=== PATIENT | male | born 1940 | race Hispanic/Latino ===

== ENCOUNTER 2021-08-22 08:18 | Observation (INO) | payer OTHER ==
[2021-08-22 08:37] LABS: Protime INR 0.97
[2021-08-22 08:38] LABS: Basophils % 0.6 % (0-1.3); Hematocrit 38.7 % (39.6-49.0); Lymphocytes % 20.1 % (15.3-44.8); MPV 8.7 fL (7.6-11.3); RBC Red Blood Cell Count 4.06 M/uL (4.33-5.43)
[2021-08-22 08:58] LABS: Albumin 3.3 g/dL (3.4-5.0); Bilirubin Direct 0.2 mg/dL (0-0.2); Bilirubin Total 0.5 mg/dL (0.2-1.0); Magnesium 2.1 mg/dL (1.8-2.4); Troponin (Emerg Dept Use Only) 0.02 ng/mL (0.0-0.045)
--- NOTE | 2021-08-22 09:31 | RAD REPORT ---
EXAM DESCRIPTION: RAD - Chest Single View - 08/22/2021 8:35 am CLINICAL HISTORY: CHEST PAIN COMPARISON: No comparisons FINDINGS: Lines: None. Lungs: No evidence of edema or pneumonia. Pleural: No significant pleural effusions or pneumothorax. Cardiac: The heart size is within normal limits. Bones: No acute fractures. Other: IMPRESSION: No acute cardiopulmonary disease.
--- NOTE | 2021-08-22 09:42 | EDPHYS ---
Physician Documentation [facility] Name: Kel Acuna Age: 80 yrs Sex: Male : 1940 Arrival Date: 08/22/2021 Time: 08:21 Bed 4 Private MD: ED Physician Rivka Elias HPI: 08/22 09:33 This 80 yrs old Male presents to ER via EMS with complaints of Chest Pain. ma2 09:40 The patient or guardian reports chest pain that is located primarily in the substernal ma2 area. Onset: gradually, 1 day(s) ago. Associated signs and symptoms: Pertinent negatives: cough, headache, lower extremity swelling, nausea. Severity of pain: At its worst the pain was moderate in the emergency department the pain is unchanged. The patient has experienced similar episodes in the past. Historical: - Allergies: 08:28 Aspirin; kd3 08:28 PENICILLINS; kd3 08:28 Tramadol HCl; kd3 08:28 SHELLFISH; kd3 - Home Meds: 08:28 metformin 500 mg Oral tab .5 tab 2 times per day [Active]; prednisolone acetate 0.12 % kd3 Opht drps 1 drop 2 times per day [Active]; tamsulosin 0.4 mg oral cap 1 cap once daily [Active]; atorvastatin 80 mg oral tab 1 tab once daily [Active]; citalopram 40 mg tab 1 tab once daily [Active]; clopidogrel 75 mg oral tab 1 tab once daily [Active]; famotidine 20 mg Oral tab 1 tab 2 times per day [Active]; - PMHx: 08:28 Diabetes mellitus; Hypercholesterolemia; Kidney disease; blind; kd3 - Immunization history:: Client reports receiving the Stone \\T\\ Stone single-dose vaccine. - Social history:: Smoking status: unknown Patient/guardian denies using alcohol, IV drugs, The patient lives with family. - Family history:: not pertinent. ROS: 09:40 Constitutional: Negative for fever, chills, and weight loss. ma2 09:40 All other systems are negative. Exam: 09:40 Constitutional: This is a well developed, well nourished patient who is awake, alert, ma2 and in no acute distress. Chest/axilla: Normal chest wall appearance and motion. Nontender with no deformity. No lesions are appreciated. Cardiovascular: Regular rate and rhythm with a normal S1 and S2. No gallops, murmurs, or rubs. Normal PMI, no JVD. No pulse deficits. Respiratory: Lungs have equal breath sounds bilaterally, clear to auscultation and percussion. No rales, rhonchi or wheezes noted. No increased work of breathing, no retractions or nasal flaring. Abdomen/GI: Soft, non-tender, with normal bowel sounds. No distension or tympany. No guarding or rebound. No evidence of tenderness throughout. Back: No spinal tenderness. No costovertebral tenderness. Full range of motion. Vital Signs: 08:22 BP 167 / 87; Pulse 68; Resp 12; Temp 97.4; Pulse Ox 100% on R/A; kd3 09:00 BP 137 / 84; Pulse 64; Resp 15; Pulse Ox 100% ; jl7 09:30 BP 137 / 51; Pulse 64; Resp 15; Pulse Ox 100% ; jl7 10:00 BP 148 / 76; Pulse 59; Resp 14; Pulse Ox 100% ; jl7 10:30 BP 146 / 78; Pulse 61; Resp 15; Pulse Ox 100% ; jl7 11:00 BP 147 / 72; Pulse 64; Resp 15; Pulse Ox 100% ; jl7 MDM: 08:21 Patient medically screened. ma2 09:40 Differential diagnosis: abnormal EKG, chest wall pain, gastroesophageal reflux disease ma2 (GERD), pneumonia, stable angina. HEART Score: History: Moderately Suspicious (1), ECG: Non specific repolarization disturbance / LBTB / PM (1), Age: > or = 65 years (2), Risk Factors: > or = 3 Risk factors for atherosclerotic disease (2), Troponin: < or = 1 x Normal Limit (0), Total Score = 5. The patient was given aspirin in the Emergency Department. Data reviewed: vital signs, nurses notes, EMS record. Data reviewed: lab test result(s), EKG. Counseling: I had a detailed discussion with the patient and/or guardian regarding: the historical points, exam findings, and any diagnostic results supporting the discharge/admit diagnosis, the presence of at least one elevated blood pressure reading (>120/80) during this emergency department visit, the need for further work-up and treatment in the hospital. 08/22 08:22 Order name: Basic Metabolic Panel [facility] 08/22 08:22 Order name: CBC with Diff; Complete Time: 09:25 [facility] 08/22 08:22 Order name: LFT's; Complete Time: 09:25 [facility] 08/22 08:22 Order name: Magnesium; Complete Time: 09:25 [facility] 08/22 08:22 Order name: NT PRO-BNP; Complete Time: 09:25 [facility] 08/22 08:22 Order name: PT-INR; Complete Time: 09:25 [facility] 08/22 08:22 Order name: Troponin (emerg Dept Use Only); Complete Time: 09:25 [facility] 08/22 08:22 Order name: XRAY Chest (1 view); Complete Time: 11: [facility] 08/22 08:22 Order name: EKG; Complete Time: 08:22 [facility] 08/22 08:22 Order name: Basic Metabolic Panel; Complete Time: 09:25 [facility] 08/22 10:14 Order name: SARS-COV-2 RT PCR (Document "Date of Onset" if Symptomatic) 08/22 10:15 Order name: SARS-COV-2 RT PCR [facility] 08/22 10:21 Order name: Social Service Consult [facility] 08/22 08:22 Order name: Cardiac monitoring; Complete Time: 08:25 [facility] 08/22 08:22 Order name: EKG - Nurse/Tech; Complete Time: 08:25 [facility] 08/22 08:22 Order name: IV Saline Lock; Complete Time: 08:25 [facility] 08/22 08:22 Order name: Labs collected and sent; Complete Time: 08:25 [facility] 08/22 08:22 Order name: O2 Per Protocol; Complete Time: 08:25 [facility] 08/22 08:22 Order name: O2 Sat Monitoring; Complete Time: 08:25 [facility] Administered Medications: 09:47 Not Given (allergyy): Aspirin Chewable Tablet 324 mg PO once; 81 mg tablets x 4 jd3 Disposition Summary: 08/22/21 09:41 Hospitalization Ordered Hospitalization Status: Observation nc2 Provider: Curtis Richards Location: Telemetry/MedSurg (observation) [facility] Condition: Stable [facility] Problem: new [facility] Symptoms: are unchanged [facility] Bed/Room Type: Standard [facility] Room Assignment: [facility](08/22/21 11:27) eb Diagnosis - Chest pain, unspecified ma2 Forms: - Medication Reconciliation Form ma2 - SBAR form ma2 Signatures: Dispatcher [employer] Rivka Cheatham MD MD ma2 Maria Eugenia Bolden Kyli kd3 Wei Genao RN jd3 Corrections: (The following items were deleted from the chart) 09:41 ma2 renata
--- NOTE | 2021-08-22 09:42 | ER ---
Nurse's Notes [facility] Name: Kel Acuna Age: 80 yrs Sex: Male : 1940 Arrival Date: 08/22/2021 Time: 08:21 Bed 4 Private MD: Diagnosis: Chest pain, unspecified Presentation: 08/22 08:22 Chief complaint: EMS states: toned out for non radiating left-sided chest pain. nitro kd3 x3 given at residential with minimal relief. Coronavirus screen: At this time, the client does not indicate any symptoms associated with coronavirus-19. Ebola Screen: Patient negative for fever greater than or equal to 101.5 degrees Fahrenheit, and additional compatible Ebola Virus Disease symptoms No symptoms or risks identified at this time. Initial Sepsis Screen: Does the patient meet any 2 criteria? No. Patient's initial sepsis screen is negative. Does the patient have a suspected source of infection? No. Patient's initial sepsis screen is negative. Risk Assessment: Do you want to hurt yourself or someone else? Patient reports no desire to harm self or others. Onset of symptoms was August 22, 2021 at 06:30. Care prior to arrival: IV initiated. 20 GA, in the left forearm. Transition of care: patient was received from another setting of care (long-term care facility), [facility]. 08:22 Method Of Arrival: EMS: [facility] kd3 08:22 Acuity: LEONID 2 kd3 Triage Assessment: 08:28 General: Appears in no apparent distress. uncomfortable, Behavior is calm, cooperative, kd3 appropriate for age. Pain: Complains of pain in anterior aspect of left upper chest Pain does not radiate. Pain currently is 4 out of 10 on a pain scale. at worst was 6 out of 10 on a pain scale. Pain began 2 hours ago. Is continuous. EENT: Eyes pt report blind in both eyes . Neuro: No deficits noted. Level of Consciousness is awake, alert, obeys commands, Oriented to person, place, time, situation. Cardiovascular: Patient's skin is warm and dry. Rhythm is sinus rhythm. Respiratory: Airway is patent Respiratory effort is even, unlabored, Respiratory pattern is regular, symmetrical. Derm: Skin is pink, warm \T\ dry. Historical: - Allergies: 08:28 Aspirin; kd3 08:28 PENICILLINS; kd3 08:28 Tramadol HCl; kd3 08:28 SHELLFISH; kd3 - Home Meds: 08:28 metformin 500 mg Oral tab .5 tab 2 times per day [Active]; prednisolone acetate 0.12 % kd3 Opht drps 1 drop 2 times per day [Active]; tamsulosin 0.4 mg oral cap 1 cap once daily [Active]; atorvastatin 80 mg oral tab 1 tab once daily [Active]; citalopram 40 mg tab 1 tab once daily [Active]; clopidogrel 75 mg oral tab 1 tab once daily [Active]; famotidine 20 mg Oral tab 1 tab 2 times per day [Active]; - PMHx: 08:28 Diabetes mellitus; Hypercholesterolemia; Kidney disease; blind; kd3 - Immunization history:: Client reports receiving the Stone \T\ Stone single-dose vaccine. - Social history:: Smoking status: unknown Patient/guardian denies using alcohol, IV drugs, The patient lives with family. - Family history:: not pertinent. Screenin:39 Abuse screen: Denies threats or abuse. Denies injuries from another. Nutritional kd3 screening: No deficits noted. Tuberculosis screening: No symptoms or risk factors identified. Fall Risk IV access (20 points). Ambulatory Aid- None/Bed Rest/Nurse Assist (0 pts). Mental Status- Oriented to own ability (0 pts). Total Balderas Fall Scale indicates No Risk (0-24 pts). Assessment: 08:39 General: see triage . kd3 09:30 Reassessment: Patient appears in no apparent distress at this time. Patient and/or jl7 family updated on plan of care and expected duration. Pain level reassessed. Patient is alert, oriented x 3, equal unlabored respirations, skin warm/dry/pink. Pt reports decreased pain rated 2/10 at this time Patient states feeling better. 10:30 Reassessment: Patient appears in no apparent distress at this time. No changes from jl7 previously documented assessment. Patient and/or family updated on plan of care and expected duration. Pain level reassessed. Patient is alert, oriented x 3, equal unlabored respirations, skin warm/dry/pink. Vital Signs: 08:22 BP 167 / 87; Pulse 68; Resp 12; Temp 97.4; Pulse Ox 100% on R/A; kd3 09:00 BP 137 / 84; Pulse 64; Resp 15; Pulse Ox 100% ; jl7 09:30 BP 137 / 51; Pulse 64; Resp 15; Pulse Ox 100% ; jl7 10:00 BP 148 / 76; Pulse 59; Resp 14; Pulse Ox 100% ; jl7 10:30 BP 146 / 78; Pulse 61; Resp 15; Pulse Ox 100% ; jl7 11:00 BP 147 / 72; Pulse 64; Resp 15; Pulse Ox 100% ; jl7 ED Course: 08:21 Patient arrived in ED. kd3 08:21 Rivka Elias MD is Attending Physician. ma2 08:28 Triage completed. kd3 08:28 Arm band placed on right wrist. kd3 08:36 XRAY Chest (1 view) In Process Unspecified. EDMS 08:39 Patient has correct armband on for positive identification. Placed in gown. Bed in low kd3 position. Call light in reach. Side rails up X2. transplant surgeon on. Pulse ox on. NIBP on. 08:39 EKG done, by ED staff, reviewed by Rivka Elias MD. Initial lab(s) drawn, by ED kd3 staff, sent to lab. Maintain EMS IV. Dressing intact. Good blood return noted. Site clean \T\ dry. Gauge \T\ site: 20 r forearm . Patient maintains SpO2 saturation greater than 95% on room air. 09:41 Curtis Richards DO is Hospitalizing Provider. ma2 09:48 Neva Blandon RN is Primary Nurse. 7 11:33 No provider procedures requiring assistance completed. Patient admitted, IV remains in jl7 place. intact, No redness/swelling at site. Administered Medications: 09:47 Not Given (allergyy): Aspirin Chewable Tablet 324 mg PO once; 81 mg tablets x 4 jd3 Outcome: 09:41 Decision to Hospitalize by Provider. ma2 11:34 Admitted to Tele accompanied by tech, room 215, with chart, Report called to adin Ballard RN 11:34 Condition: stable 11:34 Discharge instructions given to patient, Instructed on the need for admit, Demonstrated understanding of instructions. 11:48 Patient left the ED. [email or web address] Signatures: Dispatcher [employer] Neva Chavez RN RN jl7 Alzahri, Mohammad, MD MD ma2 Priscilla Britton kd3 Wei Genao RN jd3
--- NOTE | 2021-08-22 10:20 | P.HP ---
Certification for Inpatient Patient admitted to: Observation With expected LOS: <2 Midnights Patient will require the following post-hospital care: Other (Back to halfway) Practitioner: I am a practitioner with admitting privileges, knowledge of patient current condition, hospital course, and medical plan of care. Services: Services provided to patient in accordance with Admission requirements found in Title 42 Section 412.3 of the Code of Federal Regulations Patient History Date of Service: 08/22/21 Primary Care Provider: [facility] Reason for admission: Chest pain History of Present Illness: 80-year-old male with history of CAD, diabetes, hyperlipidemia, BPH, and depression. Patient presented to the emergency room with left-sided chest pain. Patient is new to the area. He has been at the halfway for over 10 days. He recently lived near [facility]. He reports having chest pain in the recent past. He was seen at [facility]. He reports having a stress test done at that time which was unremarkable. Today he reported chest pain to the left chest wall. He denied any radiation of pain. He denied any nausea, vomiting or shortness of breath. He took 3 nitro pills with improvement. He came to the ER for further evaluation. In the ER patient was evaluated. EKG shows no significant EKG changes. CBC unremarkable. BMP unremarkable. Troponin 0 0.02. Chest x-ray unremarkable. Due to his risk factors patient was admitted for observation. Home medications list reviewed: Yes - Past Medical/Surgical History Diabetic: Yes -: Diabetes mellitus type 2 -: Hypertension -: Hyperlipidemia -: BPH -: CAD with prior stents -: Seasonal allergies -: Prior cardiac stents x3 Psychosocial/ Personal History: Lives at halfway. Recently moved to halfway. Was in [facility] prior to this. - Family History Family History: Reviewed- Non-Contributory - Social History Smoking Status: Never smoker Alcohol use: No CD- Drugs: No Caffeine use: No Place of Residence: [facility] Review of Systems General: As per HPI Eyes: Unremarkable ENT: Unremarkable Respiratory: Shortness of Breath Cardiovascular: Unremarkable Gastrointestinal: Unremarkable Genitourinary: Unremarkable Musculoskeletal: Unremarkable Integumentary: Unremarkable Neurological: Unremarkable Lymphatics: Unremarkable Physical Examination - Studies Laboratory Data (last 24 hrs) 08/22/21 08:22: PT 11.2, INR 0.97 08/22/21 08:22: WBC 5.20, Hgb 12.7 L, Hct 38.7 L, Plt Count 167 08/22/21 08:22: Sodium 143, Potassium 4.0, BUN 14, Creatinine 1.00, Glucose 87, Magnesium 2.1, Total Bilirubin 0.5, AST 55 H, ALT 63, Alkaline Phosphatase 120 H Assessment and Plan - Plan COVID: Pending Chest x-ray: COMPARISON: No comparisons FINDINGS: Lines: None. Lungs: No evidence of edema or pneumonia. Pleural: No significant pleural effusions or pneumothorax. Cardiac: The heart size is within normal limits. Bones: No acute fractures. IMPRESSION: No acute cardiopulmonary disease. Physical Exam: GENERAL: The patient is a well-developed, well-nourished, in no apparent distress. Alert and oriented x3. VITAL SIGNS: Reviewed HEENT: Head is normocephalic and atraumatic. Extraocular muscles are intact. Pupils are equal, round, and reactive to light and accommodation. Nares appeared normal. Mouth is well hydrated and without lesions. Mucous membranes are moist. NECK: Supple. No carotid bruits. No lymphadenopathy or thyromegaly. LUNGS: Clear to auscultation. No crackles or wheezes are heard. HEART: Regular rate and rhythm, no appreciable gallops, rubs, murmurs or extra heart sounds ABDOMEN: Soft, nontender, and nondistended. Positive bowel sounds. No hepatosplenomegaly was noted. EXTREMITIES: Without any cyanosis, clubbing, rash, lesions or peripheral edema. NEUROLOGIC: The patient is oriented to person, place and time. Strength and sensation are grossly intact. Face is symmetric. SKIN: Normal color, turgor and temperature. No ulcerations or rashes noted. Impression: Chest pain with history of CAD and 3 prior stents Hypertension Hyperlipidemia Diabetes mellitus type 2 [id number] BPH Depression GERD Plan: Chest pain with history of CAD and 3 prior stents: Patient will be admitted for further evaluation and observation. No significant EKG changes noted on EKG. Will monitor cardiac enzymes and telemetry. Will obtain echocardiogram. We will try to obtain recent cardiac stress test done in [facility] which was unremarkable. Continue aspirin, Plavix, Lipitor medication. Will monitor blood pressure closely. Cardiology consulted. Await recommendation. If work-up unremarkable anticipate likely discharge within 24 hours. Hypertension: Blood pressure stable at this time. We will monitor this closely. Patient not taking any medication at this time but will verify from [facility] record. Will start low-dose carvedilol with parameters in place. Hyperlipidemia: We will check fasting lipid panel. Continue Lipitor 80 mg daily. Diabetes mellitus type 2 [id number]: Hold Metformin. Continue Accu- Cheks and sliding scale. Will check A1c. BPH: Continue Flomax 0.4 mg daily. Depression: Continue Celexa 40 mg daily. GERD: Continue Pepcid 20 mg 1 pill twice daily. Code Status: Full Code DVT prophylaxis: Lovenox Advanced Care Planning-30 minutes: Patient will return back to the halfway at discharge Discharge Plan: [facility] Plan to discharge in: 24 Hours - Advance Directives Does patient have a Living Will: No Does patient have a Durable POA for Healthcare: No - Code Status/Comfort Care Code Status Assessed: Yes (Patient is full code) Time Spent Managing Pts Care (In Minutes): 55
[2021-08-22] MEDS ORDERED: ONDANSETRON 4 MG/2 ML VIAL IV PRN (11:55)
[2021-08-22] MEDS ORDERED: HYDROCODONE/APAP 7.5/325 MG TAB PO PRN (11:55)
[2021-08-22] MEDS ORDERED: TRAMADOL HCL 50 MG TAB PO PRN (11:55)
[2021-08-22] MEDS ORDERED: ACETAMINOPHEN 500 MG TAB PO PRN (11:55)
[2021-08-22] MEDS: INSULIN -REGULAR HUMAN 50 UNIT/0.5 ML ML SQ SCH ×3 (11:55→21:00)
[2021-08-22] MEDS ORDERED: NITROGLYCERIN 0.4 MG/TAB SL PRN (11:55)
[2021-08-22] MEDS ORDERED: LORAZEPAM 0.5 MG TABLET PO PRN (11:55)
[2021-08-22 12:51] VITALS: BMI 25.0
[2021-08-22 13:01] LABS: CKMB Creatine Kinase MB 2.8 ng/mL (1.0-3.6); Troponin I 0.02 ng/mL (0.0-0.045)
--- NOTE | 2021-08-22 15:05 | ECHO ---
HEIGHT: 5 ft 2 in WEIGHT: 137 lb 0 oz DATE OF STUDY: 08/22/[address]: Curtis Richards DO 2-DIMENSIONAL: YES M.MODE: YES DOPPLER: YES COLOR FLOW: YES TDS: NO PORTABLE: NO DEFINITY: NO BUBBLE STUDY: NO DIAGNOSIS: CHEST PAIN/ HYPERTENSION CARDIAC HISTORY: CATHERIZATION: SURGERY: PROSTHETIC VALVE: PACEMAKER: MEASUREMENTS (cm) DIASTOLIC (NORMALS) SYSTOLIC (NORMALS) IVSd 1.2 (0.6-1.2) LA Diam 3.0 (1.9-4.0) LVEF 77% LVIDd 3.5 (3.5-5.7) LVIDs 1.9 (2.0-3.5) %FS 44% LVPWd 1.1 (0.6-1.2) Ao Diam 3.3 (2.0-3.7) 2 DIMENSIONAL ASSESSMENT: RIGHT ATRIUM: NORMAL LEFT ATRIUM: NORMAL RIGHT VENTRICLE: NORMAL LEFT VENTRICLE: NORMAL TRICUSPID VALVE: NORMAL MITRAL VALVE: MILD TO MODERATE MITRAL REGURGITATION PULMONIC VALVE: NORMAL AORTIC VALVE: NORMAL PERICARDIAL EFFUSION: NONE AORTIC ROOT: NORMAL LEFT VENTRICULAR WALL MOTION: NORMAL. DOPPLER/COLOR FLOW: SEE BELOW. COMMENTS: NORMAL LEFT VENTRICULAR EJECTION FRACTION 60-65%. NORMAL WALL MOTION. MILD MITRAL REGURGITATION. TECHNOLOGIST: TON TITUS
[2021-08-22] MEDS ORDERED: carvediloL 3.125 MG TAB PO SCH (18:00)
[2021-08-22 18:25] LABS: CKMB Creatine Kinase MB 2.6 ng/mL (1.0-3.6)
[2021-08-22] MEDS ORDERED: ATORVASTATIN 80 MG TAB PO SCH (21:00)
[2021-08-22] MEDS ORDERED: TAMSULOSIN 0.4 MG SR CAP PO SCH (21:00)
[2021-08-22] MEDS: FAMOTIDINE 20 MG TAB PO SCH (21:31)
--- NOTE | 2021-08-22 22:01 | CON ---
Date of Consultation: 08/22/2021 Reason For Consultation: Chest pain. History Of Present Illness: A 80-year-old male with a history of diabetes; coronary artery disease, status post stents placement in the past; dyslipidemia; depression; presented with chest pain, left-s ided. The patient has been having this pain since yesterday and it is coming and going pressure-like and no radiation. No nausea, vomiting, or diaphoresis. Past Medical History: As outlined above in the HPI. Medications: Refer to reconciliation sheet for detailed list. Allergies: ASPIRIN, PENICILLIN, AND TRAMADOL. Social History: Does not smoke or drink. Does not use any drugs. Family History: No premature coronary artery disease or cancer. Review of Systems: All systems reviewed and they were negative except as mentioned in the HPI. Physical Examination: Vital Signs: Reviewed. Head and Neck: Pupils are equal, reactive to light. Intact eye movements. No JVD. No cyanosis. Ne ck is supple. Thyroid is not enlarged. Lungs: Clear to auscultation bilaterally. No rhonchi, rales, or crackles. No accessory muscle use. Heart: Regular rate and rhythm. No extra sounds. Abdomen: Soft and nontender. Bowel sounds positive. No organomegaly. No masses or hernia. No rig idity or rebound. Extremities: No edema, clubbing, or cyanosis. Intact pulses. Skin: No rashes. Neurologic: Alert, awake, and oriented x3. No acute focal deficits appreciated. Investigations: Labs were reviewed. Assessment And Recommendations: Chest pain in the setting of presence of coronary artery disease wit h multiple stents in the past. First troponin is negative. Please trend troponins. Start on aspiri n. Obtain echocardiogram and recommend to keep n.p.o. past midnight for coronary angiogram tomorrow. The patient more likely is having unstable angina versus acute coronary syndrome. Please trend 2 m ore sets of troponin and to start him on anticoagulation if there is any troponin rise. Thank you for the consult. /VARINDER Voice ID: [id number] Report ID: [id number]
[2021-08-23 00:39] VITALS: TEMP 97.9
[2021-08-23 05:45] LABS: Magnesium 2.3 mg/dL (1.8-2.4); Potassium 4.5 mmol/L (3.5-5.1); Thyroid Stimulating Hormone 2.52 uIU/mL (0.360-3.740)
--- NOTE | 2021-08-23 06:01 | P.PN ---
Subjective Date of Service: 08/23/21 Primary Care Provider: [facility] / [facility] Chief Complaint: Chest pain Subjective: Improving, Doing well Physical Examination - Vital Signs Temperature: 97.9 F Blood Pressure: 108/58 Pulse: 70 Respirations: 18 Pulse Ox (%): 97 - Studies Laboratory Data (last 24 hrs) 08/22/21 08:22: PT 11.2, INR 0.97 08/22/21 08:22: WBC 5.20, Hgb 12.7 L, Hct 38.7 L, Plt Count 167 08/22/21 08:22: Sodium 143, Potassium 4.0, BUN 14, Creatinine 1.00, Glucose 87, Magnesium 2.1, Total Bilirubin 0.5, AST 55 H, ALT 63, Alkaline Phosphatase 120 H Assessment & Plan Discharge Plan: Home Plan to discharge in: 24 Hours Physician Review Additional Text: COVID: Pending Chest x-ray: COMPARISON: No comparisons FINDINGS: Lines: None. Lungs: No evidence of edema or pneumonia. Pleural: No significant pleural effusions or pneumothorax. Cardiac: The heart size is within normal limits. Bones: No acute fractures. IMPRESSION: No acute cardiopulmonary disease. ECHO: MEASUREMENTS (cm) DIASTOLIC (NORMALS) SYSTOLIC (NORMALS) IVSd 1.2 (0.6-1.2) LA Diam 3.0 (1.9-4.0) LVEF 77% LVIDd 3.5 (3.5-5.7) LVIDs 1.9 (2.0-3.5) %FS 44% LVPWd 1.1 (0.6-1.2) Ao Diam 3.3 (2.0-3.7) 2 DIMENSIONAL ASSESSMENT: RIGHT ATRIUM: NORMAL LEFT ATRIUM: NORMAL RIGHT VENTRICLE: NORMAL LEFT VENTRICLE: NORMAL TRICUSPID VALVE: NORMAL MITRAL VALVE: MILD TO MODERATE MITRAL REGURGITATION PULMONIC VALVE: NORMAL AORTIC VALVE: NORMAL PERICARDIAL EFFUSION: NONE AORTIC ROOT: NORMAL LEFT VENTRICULAR WALL MOTION: NORMAL. DOPPLER/COLOR FLOW: SEE BELOW. COMMENTS: NORMAL LEFT VENTRICULAR EJECTION FRACTION 60-65%. NORMAL WALL MOTION. MILD MITRAL REGURGITATION. Physical Exam: GENERAL: The patient is a well-developed, well-nourished, in no apparent distress. Alert and oriented x3. VITAL SIGNS: Reviewed HEENT: Neck supple LUNGS: Clear to auscultation. No crackles or wheezes are heard. HEART: Regular rate and rhythm, no appreciable gallops, rubs, murmurs or extra heart sounds ABDOMEN: Soft, nontender, and nondistended. Positive bowel sounds. No hepatosplenomegaly was noted. EXTREMITIES: Without any cyanosis, clubbing, rash, lesions or peripheral edema. NEUROLOGIC: The patient is oriented to person, place and time. Strength and sensation are grossly intact. Face is symmetric. SKIN: Normal color, turgor and temperature. No ulcerations or rashes noted. Impression: Chest pain with history of CAD and 3 prior stents Hypertension Hyperlipidemia Diabetes mellitus type 2 [id number]-jowpxhrwn BPH Depression GERD Plan: Chest pain with history of CAD and 3 prior stents: Cardiac enzymes are negative. Cardiology plans for heart cath today. ECHO unremarkable with EF of 60%. Will monitor cardiac enzymes and telemetry. Continue aspirin, Plavix, Lipitor medication. Await findings of heart cath. Possible discharge as early as today if heart cath unremarkable. Await findings from heart catheterization. Hypertension: Blood pressure stable on carvedilol 3.125 mg 1 pill twice daily. Parameters in place to hold Hyperlipidemia: LDL 59. Continue Lipitor 80 mg daily. Diabetes mellitus type 2 ite-njszwmk-[id number]: Continue to hold Metformin. Continue Accu-Cheks and sliding scale. Will check A1c. BPH: Continue Flomax 0.4 mg daily. Depression: Continue Celexa 40 mg daily. GERD: Continue Pepcid 20 mg 1 pill twice daily. Code Status: Full Code DVT prophylaxis: Lovenox Advanced Care Planning-30 minutes: Patient will return back to the senior living at discharge Time Spent Managing Pts Care (In Minutes): 55
[2021-08-23] MEDS: INSULIN -REGULAR HUMAN 50 UNIT/0.5 ML ML SQ SCH ×2 (07:30→11:30)
[2021-08-23] MEDS: FAMOTIDINE 20 MG TAB PO SCH (08:54)
[2021-08-23] MEDS ORDERED: ASPIRIN EC 81 MG TAB PO SCH (09:00)
[2021-08-23] MEDS ORDERED: LORATADINE 10 MG TAB PO SCH (09:00)
[2021-08-23] MEDS ORDERED: ENOXAPARIN 40 MG/0.4 ML SQ SCH (09:00)
[2021-08-23] MEDS ORDERED: CITALOPRAM 10 MG TABLET PO SCH (09:00)
[2021-08-23] MEDS ORDERED: CLOPIDOGREL 75 MG TABLET PO SCH (09:00)
[2021-08-23] MEDS ORDERED: FLUTICASONE 50MCG NASAL SPRAY NAS SCH (09:00)
[2021-08-23] MEDS ORDERED: NA CHLORIDE 0.9% 500 ML ONE (10:03)
[2021-08-23] MEDS ORDERED: HEPA 1000U/500MLS 1,000 UNIT/500 ML BAG IV ONE (10:28)
[2021-08-23] MEDS ORDERED: LIDOCAINE 1% 20 ML MDV ONE (10:28)
[2021-08-23] MEDS ORDERED: FENTANYL CITR 100 MCG/2 ML ONE (10:34)
[2021-08-23] MEDS ORDERED: MIDAZOLAM HCL 2 MG/2 ML INJ ONE (10:34)
[2021-08-23] MEDS ORDERED: ATROPINE SULF 1 MG/10 ML SYR IV ONE (10:34)
[2021-08-23] MEDS ORDERED: NA CHLORIDE 0.9% 0 ML ONE (10:38)
[2021-08-23] MEDS ORDERED: METHYLPREDNISOLONE 125 MG INJ ONE (10:45)
[2021-08-23 11:50] VITALS: BP 108/60; O2SAT 94
--- NOTE | 2021-08-23 13:24 | P.DS ---
Admission Date: 08/22/21 Discharge Date: 08/23/21 Primary Care Provider: [facility] Disposition: TRANSFER TO SKILLED NURSING Discharge Condition: GOOD Reason for Admission: Chest pain Consultations: Cardiology-Dr. Rizzo Procedures: COVID: Negative Chest x-ray: COMPARISON: No comparisons FINDINGS: Lines: None. Lungs: No evidence of edema or pneumonia. Pleural: No significant pleural effusions or pneumothorax. Cardiac: The heart size is within normal limits. Bones: No acute fractures. IMPRESSION: No acute cardiopulmonary disease. ECHO: MEASUREMENTS (cm) DIASTOLIC (NORMALS) SYSTOLIC (NORMALS) IVSd 1.2 (0.6-1.2) LA Diam 3.0 (1.9-4.0) LVEF 60% LVIDd 3.5 (3.5-5.7) LVIDs 1.9 (2.0-3.5) %FS 44% LVPWd 1.1 (0.6-1.2) Ao Diam 3.3 (2.0-3.7) 2 DIMENSIONAL ASSESSMENT: RIGHT ATRIUM: NORMAL LEFT ATRIUM: NORMAL RIGHT VENTRICLE: NORMAL LEFT VENTRICLE: NORMAL TRICUSPID VALVE: NORMAL MITRAL VALVE: MILD TO MODERATE MITRAL REGURGITATION PULMONIC VALVE: NORMAL AORTIC VALVE: NORMAL PERICARDIAL EFFUSION: NONE AORTIC ROOT: NORMAL LEFT VENTRICULAR WALL MOTION: NORMAL. DOPPLER/COLOR FLOW: SEE BELOW. COMMENTS: NORMAL LEFT VENTRICULAR EJECTION FRACTION 60-65%. NORMAL WALL MOTION. MILD MITRAL REGURGITATION. Heart Cath: Stents noted. Some coronary artery disease noted. No stent required at this time. Continue with medical management with the addition of Imdur. Medical Problem List: Chest pain with history of CAD and 3 prior stents status post heart catheterization showing patent stents in coronary artery disease. No stent required. Hyperlipidemia Diabetes mellitus type 2 zxx-kvqlibw-pckckvgzf BPH Depression GERD Brief History of Present Illness: 80-year-old male with history of CAD, diabetes, hyperlipidemia, BPH, and depression. Patient presented to the emergency room with left-sided chest pain. Patient is new to the area. He has been at the detention for over 10 days. He recently lived near [place]. He reports having chest pain in the recent past. He was seen at [facility]. He reports having a stress test done at that time which was unremarkable. Today he reported chest pain to the left chest wall. He denied any radiation of pain. He denied any nausea, vomiting or shortness of breath. He took 3 nitro pills with improvement. He came to the ER for further evaluation. In the ER patient was evaluated. EKG shows no significant EKG changes. CBC unremarkable. BMP unremarkable. Troponin 0 0.02. Chest x-ray unremarkable. Due to his risk factors patient was admitted for observation. Hospital Course: Patient presented with chest pain. Patient with history of CAD and 3 prior stents. Patient also with history of hyperlipidemia, diabetes mellitus type 2, depression, BPH and GERD. Patient was admitted for treatment. Patient was observed. No significant EKG changes noted. Cardiac enzymes unremarkable. Patient was seen and evaluated by cardiology. Echocardiogram was unremarkable with ejection fraction around 60%. Cardiology recommended heart catheterization to further evaluate. Heart catheterization showed patent stents. Coronary artery disease noted. No stent was required. Cardiology recommends adding Imdur to his medical regimen. At discharge patient will continue with Imdur ER 30 mg daily, Plavix 75 mg daily, and Lipitor 80 mg daily. Recommend follow-up with cardiology in 1 to 2 weeks to follow-up his hospitalization. Patient will return back to the detention today. Patient with hyperlipidemia. LDL 59. At discharge patient will continue with Lipitor 80 mg daily. Patient with diabetes mellitus type 2. Metformin was held in preparation for heart catheterization. Metformin can be restarted in 48 hours. Patient will continue with metformin 500 mg 1 pill twice daily. Hemoglobin A1c well controlled with A1c of 6.0. Recommend to maintain blood sugar less than 140 fasting and less than 200 after meals. Recommend to recheck hemoglobin A1c every 3 months to monitor his progress. Recommend follow-up with PCP to further monitor and address. Patient with BPH. At discharge patient will continue with Flomax 0.4 mg daily. Patient with depression. At discharge patient will continue with Celexa 40 mg daily. Patient with GERD. Patient will continue with Pepcid 20 mg 1 pill twice daily. Patient with chronic seasonal allergies. At discharge patient will continue with Claritin 10 mg daily and Flonase 1 spray per nostril twice daily. Patient with mild elevation in blood pressure. Blood pressure remained stable during the course of his stay. No need for blood pressure medication at discharge. Recommend to monitor blood pressure closely. If blood pressure remains above 140/90 consistently then his PCP may need to add medication for better control. Consider beta-sathish. This can be further addressed at the detention. Vital Signs/Physical Exam: Temp Pulse Resp BP Pulse Ox 97.9 F 60 13 108/60 97 08/23/21 09:48 08/23/21 11:45 08/23/21 11:45 08/23/21 11:45 08/23/21 08:30 General: Alert, In no apparent distress, Oriented x3, Cooperative HEENT: Atraumatic Neck: Supple Respiratory: Clear to auscultation bilaterally, Normal air movement Cardiovascular: Normal pulses, Regular rate/rhythm Gastrointestinal: Normal bowel sounds, No tenderness, No masses, No rebound, No guarding Musculoskeletal: No erythema, No tenderness, No warmth Integumentary: No tenderness/swelling, No erythema, No warmth, No cyanosis Neurological: Normal speech, Normal strength at 5/5 x4 extr, Normal tone, Normal affect Laboratory Data at Discharge: WBC 5.20 K/uL (4.3-10.9) 08/22/21 08:22 Hgb 12.7 g/dL (13.6-17.9) L 08/22/21 08:22 Hct 38.7 % (39.6-49.0) L 08/22/21 08:22 Plt Count 167 K/uL (152-406) 08/22/21 08:22 PT 11.2 SECONDS (9.5-12.5) 08/22/21 08:22 INR 0.97 08/22/21 08:22 Sodium 140 mmol/L (136-145) 08/23/21 04:51 Potassium 4.5 mmol/L (3.5-5.1) 08/23/21 04:51 BUN 21 mg/dL (7-18) H 08/23/21 04:51 Creatinine 1.23 mg/dL (0.55-1.3) 08/23/21 04:51 Glucose 101 mg/dL (74-106) 08/23/21 04:51 Magnesium 2.3 mg/dL (1.8-2.4) 08/23/21 04:51 Total Bilirubin 0.5 mg/dL (0.2-1.0) 08/22/21 08:22 AST 55 U/L (15-37) H 08/22/21 08:22 ALT 63 U/L (12-78) 08/22/21 08:22 Alkaline Phosphatase 120 U/L (45-117) H 08/22/21 08:22 Troponin I < 0.02 ng/mL (0.0-0.045) 08/23/21 06:55 Triglycerides 89 mg/dL (<150) 08/23/21 04:51 Cholesterol 110 mg/dL (<200) 08/23/21 04:51 HDL Cholesterol 33 mg/dL (40-60) L 08/23/21 04:51 Cholesterol/HDL Ratio 3.33 08/23/21 04:51 Home Medications: Atorvastatin Calcium [Lipitor] 80 mg PO DAILY 6PM 08/22/21 Citalopram Hydrobromide [Celexa] 40 mg PO DAILY 08/22/21 Clopidogrel Bisulfate [Plavix*] 75 mg PO DAILY 08/22/21 Famotidine [Pepcid*] 20 mg PO BID 08/22/21 Fluticasone Furoate [Flonase Sensimist] 2 spray PETERSON DAILY 08/22/21 Loratadine [Claritin*] 10 mg PO DAILY 08/22/21 Metformin HCl [Glucophage*] 500 mg PO BID 08/22/21 Nitroglycerin [Nitrostat*] 0.4 mg SL Q5MX3, Q15MX1, Q30M PRN 08/22/21 Prednisolone Acetate/Pf [Prednisolone Acet 1% Eye Drop] 1 drop EACH EYE BID 09/01 Tamsulosin HCl [Flomax] 0.4 mg PO DAILY 08/22/21 Isosorbide Mononitrate [Isosorbide Mononitrate ER] 30 mg PO DAILY #30 tab.er.24h 08/23/21 New Medications: Isosorbide Mononitrate [Isosorbide Mononitrate ER] 30 mg PO DAILY #30 tab.er.24h Physician Discharge Instructions: Patient presented with chest pain. Patient with history of CAD and 3 prior stents. Patient also with history of hyperlipidemia, diabetes mellitus type 2, depression, BPH and GERD. Patient was admitted for treatment. Patient was observed. No significant EKG changes noted. Cardiac enzymes unremarkable. Patient was seen and evaluated by cardiology. Echocardiogram was unremarkable with ejection fraction around 60%. Cardiology recommended heart catheterization to further evaluate. Heart catheterization showed patent stents. Coronary artery disease noted. No stent was required. Cardiology recommends adding Imdur to his medical regimen. At discharge patient will continue with Imdur ER 30 mg daily, Plavix 75 mg daily, and Lipitor 80 mg daily. Recommend follow-up with cardiology in 1 to 2 weeks to follow-up his hospitalization. Patient will return back to the detention today. Patient with hyperlipidemia. LDL 59. At discharge patient will continue with Lipitor 80 mg daily. Patient with diabetes mellitus type 2. Metformin was held in preparation for heart catheterization. Metformin can be restarted in 48 hours. Patient will continue with metformin 500 mg 1 pill twice daily. Hemoglobin A1c well controlled with A1c of 6.0. Recommend to maintain blood sugar less than 140 fasting and less than 200 after meals. Recommend to recheck hemoglobin A1c every 3 months to monitor his progress. Recommend follow-up with PCP to further monitor and address. Patient with BPH. At discharge patient will continue with Flomax 0.4 mg daily. Patient with depression. At discharge patient will continue with Celexa 40 mg daily. Patient with GERD. Patient will continue with Pepcid 20 mg 1 pill twice daily. Patient with chronic seasonal allergies. At discharge patient will continue with Claritin 10 mg daily and Flonase 1 spray per nostril twice daily. Patient with mild elevation in blood pressure. Blood pressure remained stable during the course of his stay. No need for blood pressure medication at discharge. Recommend to monitor blood pressure closely. If blood pressure remains above 140/90 consistently then his PCP may need to add medication for better control. Consider beta-sathish. This can be further addressed at the detention. Diet: AHA Activity: Ad deepti Followup: Evangelista Drake MD [Primary Care Provider] - Time spent managing pt's care (in minutes): 55
--- NOTE | 2021-08-23 15:36 | OP ---
Surgeon: Oscar Rizzo MD Stove Fitter: Mr. Gregg Black. Procedure In Detail: Admitted to Dr. Richards on 08/22/[address] Streeter for non-STEMI, brou ght to the civil laboratory technician today as an inpatient, prepped and draped in the routine sterile fashion. Given Versed for sedation and fentanyl. He was also given 125 mg of Solu-Medrol for allergy to iodine. Th e patient was prepped and draped in the routine sterile fashion. A 6-Persian sheath introduced in the right common femoral artery successfully using the Seldinger technique and 10 mL of Xylocaine. A JL 4 catheter was first introduced and cannulated the left main. He had a short left main. He had a ci rcumflex that was normal. He was left dominant. The LAD showed a 30% to 40% stenosis in the proxima l area and distal area. Between the mid and distal LAD, there were a few stents that were overlapped and that were open. Of note was that there was a slow sluggish flow REJI-1 in the distal LAD, PDA a nd posterolateral. There were no complications. Blood Loss: 5 mL. Postoperative Diagnosis: Savhdhyu-ra-bdiwcq coronary artery disease. Plan: Plan is for medical therapy. I would increase his statin. I think he should be on Imdur. He can go home today after 2 hours of bedrest. Anesthesia: Total conscious sedation 45 minutes. He will be at bedrest for 2 hours after the Angio-Seal. JAY/VARINDER Voice ID: [id number] Report ID: [id number]
--- NOTE | 2021-08-23 20:40 | EKG ---
Test Date: 2021-08-22 Test Time: 08:17:48 Quality Assurance Assistant: MEASUREMENT RESULTS: Intervals: Rate: 71 WA: 146 QRSD: 62 QT: 410 QTc: 445 [place]: P: 52 WA: 146 QRS: 12 T: 8 INTERPRETIVE STATEMENTS: Normal sinus rhythm Minimal voltage criteria for LVH, may be normal variant Nonspecific T wave abnormality Abnormal ECG No previous ECG available for comparison Electronically Signed On 08-23-21 20:35:25 MILLED [employer]ICE BR[employer]ER by Oscar Rizzo
== END 2021-08-23 15:26 ==
LOC: ER 08:18 → ERHOLD 10:07 → 2ND 11:31
PROVIDERS: ADMIT Family Medicine; ATTEND Family Medicine
PROC: B201YZZ Plain Radiography of Multiple Coronary Arteries using Other Contrast (ICD-10-PCS; principal; 2021-08-23)
DX: I25.10 Atherosclerotic heart disease of native coronary artery without angina pectoris (principal); E11.9 Type 2 diabetes mellitus without complications; E78.5 Hyperlipidemia, unspecified; N40.0 Benign prostatic hyperplasia without lower urinary tract symptoms; F32.A Depression, unspecified; I10 Essential (primary) hypertension; Z95.5 Presence of coronary angioplasty implant and graft; K21.9 Gastro-esophageal reflux disease without esophagitis; J30.2 Other seasonal allergic rhinitis; Z20.822 Contact with and (suspected) exposure to COVID-19
CPT/HCPCS: 93005; 93306; 85025; 80048 ×2; 36415; 83735 ×2; 82550 ×2; 85610; 80061; 82947 ×5; 80076; 84443; 83036; 84484 ×3; 82553 ×2; 84439; 83880; 71045; 93454; 99285; U0003; C1893; C1760; J2250; J3010; J7040; J1644; J2930; G0378 ×3; J0583

== ENCOUNTER 2022-04-17 09:54 | Observation (INO) | payer OTHER ==
[2022-04-17 10:18] LABS: Absolute Lymphocytes (CBC) 0.8 K/uL (0.7-4.9); Lymphocytes % 17.5 % (15.3-44.8); MCV 86.3 fL (80-100); MPV 8.4 fL (7.6-11.3); RBC Red Blood Cell Count 4.17 M/uL (4.33-5.43)
[2022-04-17 10:38] LABS: Potassium 3.8 mmol/L (3.5-5.1); Troponin High Sensitivity 19.5 pg/mL (<58.9)
--- NOTE | 2022-04-17 10:55 | RAD REPORT ---
EXAM DESCRIPTION: RAD - Chest Single View - 04/17/2022 10:36 am CLINICAL HISTORY: CHEST PAIN COMPARISON: Portable 08/22/2021 TECHNIQUE: AP portable chest image was obtained 04/17/2022 10:36 am . FINDINGS: No focal mass or consolidation. There is a mild prominence of the interstitial pattern not clearly different from comparison. A minimal interstitial edema or infiltrate could be masked. No si gnificant failure or volume overload. Heart and vasculature are normal. No measurable pleural effusion and no pneumothorax. No acute bony abnormality seen. No acute aortic findings suspected. IMPRESSION: Prominent baseline interstitial pattern is present potentially masking early edema or in filtrate. No focal mass or consolidation.
--- NOTE | 2022-04-17 12:07 | ER ---
Nurse's Notes [facility] Name: Kel Acuna Age: 81 yrs Sex: Male : 1940 Arrival Date: 04/17/2022 Time: 09:56 Bed 13 Private MD: Diagnosis: Chest pain, unspecified Presentation: 04/17 09:56 Chief complaint: Patient states: he has been having intermittent chest pain for a few ap3 days now. patient states that it comes and goes on the left upper quadrant of his chest. Coronavirus screen: At this time, the client does not indicate any symptoms associated with coronavirus-19. Ebola Screen: No symptoms or risks identified at this time. Initial Sepsis Screen: Does the patient meet any 2 criteria? No. Patient's initial sepsis screen is negative. Does the patient have a suspected source of infection? No. Patient's initial sepsis screen is negative. Risk Assessment: Do you want to hurt yourself or someone else? Patient reports no desire to harm self or others. Onset of symptoms was April 13, 2022. 09:56 Method Of Arrival: EMS: [facility] ap3 09:56 Acuity: LEONID 3 ap3 09:56 Care prior to arrival: Medication(s) given: nitro IV initiated. 20 GA, in the left ap3 forearm. Triage Assessment: 09:58 General: Appears in no apparent distress. Behavior is calm, cooperative, appropriate ap3 for age. Pain: Complains of pain in anterior aspect of left upper chest Pain currently is 5 out of 10 on a pain scale. Pain began 2-3 days ago. 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 Neuro: Level of Consciousness is awake, alert, obeys commands, Oriented to person, place, time, situation, Appropriate for age. Cardiovascular: Patient's skin is warm and dry. Cardiovascular: Reports chest pain, Rhythm is regular. Respiratory: Airway is patent Respiratory effort is even, unlabored, Respiratory pattern is regular, symmetrical. Historical: - Allergies: 09:58 Aspirin; ap3 09:58 PENICILLINS; ap3 09:58 SHELLFISH; ap3 09:58 Tramadol HCl; ap3 - PMHx: 09:58 BLIND; diabetes mellitus; Hypercholesterolemia; kidney disease; stroke; ap3 - PSHx: 09:58 stents; ap3 - Immunization history:: Client reports receiving the 2nd dose of the Covid vaccine, and booster. - Social history:: Smoking status: Patient denies any tobacco usage or history of. Screenin:59 Abuse screen: Denies threats or abuse. Nutritional screening: No deficits noted. ap3 Tuberculosis screening: No symptoms or risk factors identified. Fall Risk Fall in past 12 months (25 points). Secondary diagnosis (15 points) pt is blind. Assessment: 11:45 Reassessment: Patient and/or family updated on plan of care and expected duration. Pain ap3 level reassessed. Patient is alert, oriented x 3, equal unlabored respirations, skin warm/dry/pink. 15:44 Reassessment: Patient appears in no apparent distress at this time. Patient and/or ld1 family updated on plan of care and expected duration. Pain level reassessed. Patient is alert, oriented x 3, equal unlabored respirations, skin warm/dry/pink. Patient denies pain at this time. Vital Signs: 09:56 BP 140 / 70; Pulse 72; Resp 17; Temp 97.8; Pulse Ox 98% ; Weight 61.69 kg; Height 5 ft. ap3 2 in. (157.48 cm); Pain 5/10; 11:45 BP 110 / 63; Pulse 82; Pulse Ox 100% on R/A; ap3 13:20 BP 127 / 108; Pulse 65; Resp 18; Pulse Ox 100% on R/A; ld1 15:43 BP 133 / 59; Pulse 67; Resp 18; Pulse Ox 99% on R/A; ld1 09:56 Body Mass Index 24.87 (61.69 kg, 157.48 cm) ap3 ED Course: 09:56 Patient arrived in ED. ap3 09:58 Triage completed. ap3 09:59 Aníbal Bhagat DO is Attending Physician. ms3 10:00 Meg Chatterjee, STEFAN is Primary Nurse. ap3 10:00 Arm band placed on right wrist. ap3 10:00 Patient has correct armband on for positive identification. Placed in gown. Bed in low ap3 position. Call light in reach. Side rails up X2. data control assistant on. Pulse ox on. NIBP on. Door closed. Noise minimized. 10:10 Maintain EMS IV. Dressing intact. Good blood return noted. Site clean \T\ dry. Gauge \T\ ap 3 site: 20g left FA. IV with fluids infusing freely, with good blood return, Flushed. 10:38 XRAY Chest (1 view) In Process Unspecified. EDMS 12:06 Jesus Alberto Dinh MD is Hospitalizing Provider. ms3 15:44 No provider procedures requiring assistance completed. ld1 Administered Medications: No medications were administered Outcome: 12:06 Decision to Hospitalize by Provider. ms3 16:09 Patient left the ED. ld1 Signatures: Dispatcher [employer] EDMS Meg Chatterjee, RN RN ap3 Aníbal Bhagat DO DO ms3 Philomena Mulligan, RN RN ld1
--- NOTE | 2022-04-17 12:07 | EDPHYS ---
Physician Documentation [facility] Name: Kel Acuna Age: 81 yrs Sex: Male : 1940 Arrival Date: 04/17/2022 Time: 09:56 Bed 13 Private MD: ED Physician Aníbal Bhagat HPI: 04/17 10:07 This 81 yrs old Male presents to ER via EMS with complaints of chest pain. ms3 10:07 The patient or guardian reports chest pain that is located primarily in the substernal ms3 area. Onset: this morning. The pain does not radiate. Associated signs and symptoms: Pertinent negatives: abdominal pain, nausea. The chest pain is described as tight. Duration: The patient or guardian reports a single episode, improved after 2 SL nitro. Modifying factors: The symptoms are alleviated by nothing. the symptoms are aggravated by nothing. Severity of pain: At its worst the pain was moderate in the emergency department the pain has improved. EMS care prior to arrival includes: nitroglycerin, x 1, Patient took 1 prior to EMS arrival. Historical: - Allergies: 09:58 Aspirin; ap3 09:58 PENICILLINS; ap3 09:58 SHELLFISH; ap3 09:58 Tramadol HCl; ap3 - PMHx: 09:58 BLIND; diabetes mellitus; Hypercholesterolemia; kidney disease; stroke; ap3 - PSHx: 09:58 stents; ap3 - Immunization history:: Client reports receiving the 2nd dose of the Covid vaccine, and booster. - Social history:: Smoking status: Patient denies any tobacco usage or history of. ROS: 10:07 Constitutional: Negative for fever, and chills. Eyes: Negative for injury, pain, ms3 redness, and discharge, Neck: Negative for injury, pain, and swelling, Respiratory: Negative for shortness of breath, cough, wheezing, and pleuritic chest pain, MS/Extremity: Negative for injury and deformity, Skin: Negative for injury, rash, and discoloration. 10:07 Cardiovascular: Positive for chest pain, of the chest. 10:07 All other systems are negative. Exam: 09:53 ECG was reviewed by the Attending Physician. ms3 10:07 Constitutional: This is a well developed, well nourished patient who is awake, alert, ms3 and in no acute distress. Head/Face: Normocephalic, atraumatic. Neck: Trachea midline, no cervical lymphadenopathy. Supple, full range of motion without nuchal rigidity, or vertebral point tenderness. No Meningismus. Chest/axilla: Normal chest wall appearance and motion. Nontender with no deformity. Cardiovascular: Regular rate and rhythm with a normal S1 and S2. No gallops, murmurs, or rubs. Normal PMI, no JVD. No pulse deficits. Respiratory: Lungs have equal breath sounds bilaterally, clear to auscultation and percussion. No rales, rhonchi or wheezes noted. No increased work of breathing, no retractions or nasal flaring. Abdomen/GI: Soft, non-tender, with normal bowel sounds. No distension or tympany. No guarding or rebound. No evidence of tenderness throughout. Skin: Warm, dry with normal turgor. Normal color with no rashes, no lesions, and no evidence of cellulitis. Psych: Awake, alert, with orientation to person, place and time. Behavior, mood, and affect are within normal limits. Vital Signs: 09:56 BP 140 / 70; Pulse 72; Resp 17; Temp 97.8; Pulse Ox 98% ; Weight 61.69 kg; Height 5 ft. ap3 2 in. (157.48 cm); Pain 5/10; 11:45 BP 110 / 63; Pulse 82; Pulse Ox 100% on R/A; ap3 13:20 BP 127 / 108; Pulse 65; Resp 18; Pulse Ox 100% on R/A; ld1 15:43 BP 133 / 59; Pulse 67; Resp 18; Pulse Ox 99% on R/A; ld1 09:56 Body Mass Index 24.87 (61.69 kg, 157.48 cm) ap3 MDM: 09:53 The patient was not given aspirin in the Emergency Department. Aspirin not given, ms3 patient refused. 10:07 Patient medically screened. ms3 10:07 Differential diagnosis: abnormal EKG, acute myocardial infarction, stable angina, ms3 unstable angina. 12:06 HEART Score: History: Slightly Suspicious (0), ECG: Normal (0), Age: > or = 65 years ms3 (2), Risk Factors: > or = 3 Risk factors for atherosclerotic disease (2), [Hypercholesterolemia] [Hypertension] [DM] Troponin: < or = 1 x Normal Limit (0), Total Score = 4. Data reviewed: vital signs, nurses notes, lab test result(s), EKG, radiologic studies, and as a result, I will admit patient. Counseling: I had a detailed discussion with the patient and/or guardian regarding: the historical points, exam findings, and any diagnostic results supporting the discharge/admit diagnosis, lab results, radiology results, the need for outpatient follow up. 12:06 ED course: Discussed case with Dr Dinh and he accepts admission. . ms3 04/17 10:00 Order name: Basic Metabolic Panel; Complete Time: 10:40 de3 04/17 10:00 Order name: CBC with Diff; Complete Time: 10:40 de3 04/17 10:00 Order name: Troponin HS; Complete Time: 10:40 de3 04/17 10:00 Order name: XRAY Chest (1 view); Complete Time: 11:29 de3 04/17 12:07 Order name: SARS-COV-2 RT PCR (Document "Date of Onset" if Symptomatic) de3 04/17 12:23 Order name: D-Dimer [facility] 04/17 10:00 Order name: EKG; Complete Time: 10:00 de3 04/17 10:00 Order name: Cardiac monitoring; Complete Time: 10:00 de3 04/17 10:00 Order name: EKG - Nurse/Tech; Complete Time: 10:00 de3 04/17 10:00 Order name: IV Saline Lock; Complete Time: 10:00 de3 04/17 10:00 Order name: Labs collected and sent; Complete Time: 10:00 de3 04/17 10:00 Order name: O2 Per Protocol; Complete Time: 10:00 de3 04/17 10:00 Order name: O2 Sat Monitoring; Complete Time: 10:00 3 EC:53 Rate is 68 beats/min. Rhythm is regular. QRS Lamar is Normal. IA interval is normal. QRS ms3 interval is normal. Clinical impression: Normal ECG. Interpreted by me. Reviewed by me. Administered Medications: No medications were administered Disposition Summary: 04/17/22 12:06 Hospitalization Ordered Hospitalization Status: Observation ms3 Provider: Jesus Alberto Dinh ms3 Location: Telemetry/[facility]Sur (observation) ms3 Condition: Stable ms3 Problem: new ms3 Symptoms: are unchanged ms3 Bed/Room Type: Standard ms3 Room Assignment: 215(04/17/22 15:13) ss Diagnosis - Chest pain, unspecified ms3 Forms: - Medication Reconciliation Form ms3 - SBAR form ms3 Signatures: Dispatcher [employer] Apoorva Schaeffer RN RN ss Meg Chatterjee RN RN ap3 Aníbal Bhagat, DO ms3 Corrections: (The following items were deleted from the chart) 15:13 12:06 ms3 ss 17: 09:53 HEART Score: History: Slightly Suspicious (0), ECG: Normal (0), Age: > or = 65 ms3 years (2), Risk Factors: > or = 3 Risk factors for atherosclerotic disease (2), [Hypercholesterolemia] [Hypertension] [DM] Troponin: < or = 1 x Normal Limit (0), Total Score = 4 ms3 17: 09:53 Data reviewed: vital signs, nurses notes, lab test result(s), EKG, radiologic ms3 studies, and as a result, I will admit patient, ms3 09:53 Counseling: I had a detailed discussion with the patient and/or guardian ms3 regarding: the historical points, exam findings, and any diagnostic results supporting the discharge/admit diagnosis, lab results, radiology results, the need for outpatient follow up, ms3
--- NOTE | 2022-04-17 12:20 | P.HP ---
Date of Service: 04/17/22
--- NOTE | 2022-04-17 12:28 | P.HP ---
Certification for Inpatient Patient admitted to: Observation With expected LOS: <2 Midnights Patient will require the following post-hospital care: None Practitioner: I am a practitioner with admitting privileges, knowledge of patient current condition, hospital course, and medical plan of care. Services: Services provided to patient in accordance with Admission requirements found in Title 42 Section 412.3 of the Code of Federal Regulations Patient History Date of Service: 04/17/22 Reason for admission: Chest Pain History of Present Illness: Mr. Kel Acuna is a pleasant 81-year-old legally blind male who has a past medical history of coronary artery disease s/p PCI x3 (last stent placed about 8 years ago), type 2 diabetes mellitus, hypertension, hyperlipidemia, benign prostatic hyperplasia, and depressive disorder who presents to the [facility] Emergency Department for chest pain. He reports that, over the last 2 days, he has been experiencing intermittent leftsided chest pain. He states that this pain is nonradiating. He describes the pain as heaviness and grades it a 23 out of 10 in severity. He denies any obvious inciting or alleviating factors. He has not tried take any medications for symptoms. On review of systems, he denies any fevers, chills, headaches, dizziness, syncope, weakness, palpitations, shortness of breath, wheezing, cough, abdominal pain, nausea/vomiting, diarrhea, constipation, hematochezia, melena, dysuria, hematuria, myalgia, or any other symptoms. He presented to the Emergency Department for further evaluation. Upon presentation, his vital signs were stable. His laboratory studies were fairly unremarkable. EKG revealed normal sinus rhythm without STEMI criteria. Chest x-ray revealed, "prominent baseline interstitial pattern is present potentially masking early edema or infiltrate." He was admitted to the General Internal Medicine service for further evaluation. Allergies aspirin Adverse Reaction (Verified 08/22/21 12:11) Shortness of breath Penicillins Adverse Reaction (Verified 08/22/21 12:11) Nausea/Vomiting shellfish derived Adverse Reaction (Verified 08/22/21 12:11) Hives/Rash tramadol Adverse Reaction (Verified 08/22/21 12:11) Shortness of breath Home medications list reviewed: Yes Home Medications: Atorvastatin Calcium [Lipitor] 80 mg PO DAILY 6PM 08/22/21 Citalopram Hydrobromide [Celexa] 40 mg PO DAILY 08/22/21 Clopidogrel Bisulfate [Plavix*] 75 mg PO DAILY 08/22/21 Famotidine [Pepcid*] 20 mg PO BID 08/22/21 Fluticasone Furoate [Flonase Sensimist] 2 spray PETERSON DAILY 08/22/21 Loratadine [Claritin*] 10 mg PO DAILY 08/22/21 Metformin HCl [Glucophage*] 500 mg PO BID 08/22/21 Nitroglycerin [Nitrostat*] 0.4 mg SL Q5MX3, Q15MX1, Q30M PRN 08/22/21 Prednisolone Acetate/Pf [Prednisolone Acet 1% Eye Drop] 1 drop EACH EYE BID 08/22/21 Tamsulosin HCl [Flomax] 0.4 mg PO DAILY 08/22/21 Isosorbide Mononitrate [Isosorbide Mononitrate ER] 30 mg PO DAILY #30 tab.er.24h 08/23/21 - Past Medical/Surgical History Diabetic: Yes -: Diabetes mellitus type 2 -: Hypertension -: Hyperlipidemia -: BPH -: CAD -: Seasonal allergies -: MELANIE -: blind -: Prior cardiac stents x3 Psychosocial/ Personal History: [facility]. [facility] [place] [facility]. Was in [facility] prior to this. - Social History Alcohol use: No CD- Drugs: No Caffeine use: No Review of Systems General: Unremarkable Eyes: Other (legally blind), Unremarkable ENT: Unremarkable Respiratory: Unremarkable Cardiovascular: Chest Pain Gastrointestinal: Unremarkable Genitourinary: Unremarkable Musculoskeletal: Unremarkable Integumentary: Unremarkable Neurological: Unremarkable Physical Examination - Vital Signs Temperature: 97.8 F Blood Pressure: 140/70 Pulse: 72 Respirations: 17 Pulse Ox (%): 98 - Physical Exam General: Alert, In no apparent distress, Oriented x3 HEENT: Atraumatic, Mucous membr. moist/pink Neck: Supple, Without JVD or thyroid abnormality Respiratory: Clear to auscultation bilaterally, Normal air movement Cardiovascular: No edema, Regular rate/rhythm, Normal S1 S2, No gallops, No rubs, No murmurs Gastrointestinal: Normal bowel sounds, Soft and benign, No tenderness, No rebound, No guarding Musculoskeletal: No clubbing Integumentary: No rashes Neurological: Normal speech, Normal affect - Studies Laboratory Data (last 24 hrs) 04/17/22 10:07: WBC 4.5, Hgb 11.6 L, Hct 36.0 L, Plt Count 172 04/17/22 10:07: Sodium 138, Potassium 3.8, BUN 16, Creatinine 0.95, Glucose 99 Assessment and Plan - Plan # Chest Pain, with history of Coronary Artery Disease s/p PCI x3 (last stent placed about 8 years ago) # Hypertension # Hyperlipidemia Based on history and physical examination, cannot exclude ischemia as a possible etiology of his chest pain. Other differential diagnoses include, but are not limited to, pulmonary embolism, pericarditis, myocarditis, gastroesophageal reflux disease, gastritis/esophagitis, esophageal spasms, pleuritic chest pain, and musculoskeletal chest pain (i.e. costochondritis). - Evaluation thus far: - EKG: without STEMI criteria - Serial HS troponin, first was 19.5 - Ordered transthoracic echocardiogram - Chest x-ray = "prominent baseline interstitial pattern is present potentially masking early edema or infiltrate. No focal mass or consolidation." - Ordered d-dimer - Management plan: - Consult Cardiology and spoke with Dr. Rizzo recommendations appreciated - Aspirin not given due to allergy - Continue home atorvastatin, clopidogrel - Consider starting beta-sathish and MILAGROS-inhibitor/ARB if blood pressure allows # Type 2 Diabetes Mellitus - Ordered Hgb A1c - Correction scale insulin ordered - Hold home metformin while hospitalized # Benign Prostatic Hyperplasia - Continue home tamsulosin # Gastroesophageal Reflux Disease - Continue home famotidine # Depressive Disorder - Continue home citalopram Jesus Alberto Dinh MD Discharge Plan: Home Plan to discharge in: 24 Hours - Advance Directives Does patient have a Living Will: No Does patient have a Durable POA for Healthcare: No - Code Status/Comfort Care Code Status Assessed: Yes Code Status: Full Code
[2022-04-17] MEDS: INSULIN -REGULAR HUMAN 50 UNIT/0.5 ML ML SQ SCH ×3 (16:30→21:00)
[2022-04-17 17:05] VITALS: BMI 24.8
[2022-04-17 17:22] LABS: Protime INR 1.05
[2022-04-17 17:42] LABS: Troponin High Sensitivity 21.4 pg/mL (<58.9)
--- NOTE | 2022-04-17 18:21 | P.PN ---
Date of Service: 04/17/[address] Molina that Mr. Acuna is one of his clinic patients. Since he was already admitted to our service today, he will remain under our care for now. Tomorrow, he will be on Dr. Molina's service. Jesus Alberto Dinh MD
[2022-04-17] MEDS ORDERED: METFORMIN HCL 500 MG TAB PO SCH (18:30)
[2022-04-17 19:03] LABS: Urine Appearance Clear (Clear); Urine Bilirubin Negative (Negative); Urine Blood Negative (Negative); Urine Color Yellow (Yellow); Urine Glucose Negative (Negative); Urine Protein Negative (Negative); Urine Urobilinogen 0.2 mg/dL (0.2-1.0)
[2022-04-17 19:10] LABS: Urine Microscopic Reflex ORDER UMIC
[2022-04-17 19:36] LABS: Urine Bacteria 20-50 /HPF (NONE SEEN)
[2022-04-17 19:37] LABS: Urine RBC NONE SEEN /HPF (NONE SEEN)
--- NOTE | 2022-04-17 20:43 | P.HP ---
Certification for Inpatient Patient admitted to: Inpatient With expected LOS: >2 Midnights Patient will require the following post-hospital care: None Practitioner: I am a practitioner with admitting privileges, knowledge of patient current condition, hospital course, and medical plan of care. Services: Services provided to patient in accordance with Admission requirements found in Title 42 Section 412.3 of the Code of Federal Regulations Patient History Date of Service: 04/17/22 Primary Care Provider: Jesse Reason for admission: Chest Pain History of Present Illness: Patient is an office patient of [facility]. With a history of blindness, dm2, cad. For the past 4 days he has been having left sided chest pain. He had some last night. woke up at 2 in the morning. he had the pain on the left side. Stated that his left arm felt heavy. This morning he called his daughter. Who called the office. The patient was directed to come to the ER. He has seen Dr. Rizzo in the past. However has not for the last couple of years. Allergies aspirin Adverse Reaction (Verified 08/22/21 12:11) Shortness of breath Penicillins Adverse Reaction (Verified 08/22/21 12:11) Nausea/Vomiting shellfish derived Adverse Reaction (Verified 08/22/21 12:11) Hives/Rash tramadol Adverse Reaction (Verified 08/22/21 12:11) Shortness of breath Home Medications: Atorvastatin Calcium [Lipitor] 80 mg PO DAILY 6PM 08/22/21 Citalopram Hydrobromide [Celexa] 40 mg PO DAILY 08/22/21 Clopidogrel Bisulfate [Plavix*] 75 mg PO DAILY 08/22/21 Famotidine [Pepcid*] 20 mg PO BID 08/22/21 Fluticasone Furoate [Flonase Sensimist] 2 spray PETERSON DAILY 08/22/21 Loratadine [Claritin*] 10 mg PO DAILY 08/22/21 Metformin HCl [Glucophage*] 500 mg PO BID 08/22/21 Nitroglycerin [Nitrostat*] 0.4 mg SL Q5MX3, Q15MX1, Q30M PRN 08/22/21 Prednisolone Acetate/Pf [Prednisolone Acet 1% Eye Drop] 1 drop EACH EYE BID 08/22/21 Tamsulosin HCl [Flomax] 0.4 mg PO DAILY 08/22/21 Isosorbide Mononitrate [Isosorbide Mononitrate ER] 30 mg PO DAILY #30 tab.er.24h 08/23/21 - Past Medical/Surgical History Diabetic: Yes -: Diabetes mellitus type 2 -: Hypertension -: Hyperlipidemia -: BPH -: CAD -: Seasonal allergies -: MELANIE -: blind -: a -: Prior cardiac stents x3 Psychosocial/ Personal History: Lives [facility]. Recently moved [facility]. Was in [facility] prior to this. - Social History Smoking Status: Never smoker Alcohol use: No CD- Drugs: No Caffeine use: No Place of Residence: Home Review of Systems 10-point ROS is otherwise unremarkable Cardiovascular: Chest Pain Physical Examination - Vital Signs Temperature: 98.4 F Blood Pressure: 169/87 Pulse: 93 Respirations: 18 Pulse Ox (%): 94 - Physical Exam General: Alert, In no apparent distress HEENT: Atraumatic, PERRLA, Mucous membr. moist/pink, EOMI, Sclerae nonicteric Neck: Supple, 2+ carotid pulse no bruit, No LAD, Without JVD or thyroid abnormality Respiratory: Clear to auscultation bilaterally, Normal air movement Cardiovascular: Regular rate/rhythm, Normal S1 S2 Gastrointestinal: Normal bowel sounds, No tenderness Musculoskeletal: No tenderness Integumentary: No rashes Neurological: Normal gait, Normal speech, Normal strength at 5/5 x4 extr, Normal tone, Normal affect Lymphatics: No axilla or inguinal lymphadenopathy - Studies Laboratory Data (last 24 hrs) 04/17/22 10:07: WBC 4.5, Hgb 11.6 L, Hct 36.0 L, Plt Count 172 04/17/22 10:07: Sodium 138, Potassium 3.8, BUN 16, Creatinine 0.95, Glucose 99 Assessment and Plan - Problems (Diagnosis) (1) Chest pain due to CAD Current Visit: Yes Status: Acute Plan: will admit to the floor. Monitor serial troponins. Consult to Dr. Rizzo. (2) DM2 (diabetes mellitus, type 2) Current Visit: Yes Status: Acute Plan: will hold his usually metformin. May need contrast during an angiogram. Will start him on an ada diet. As well as sliding scale insulin Qualifiers: Diabetes mellitus skilled nursing insulin use: without intermediate teacher use Diabetes mellitus complication status: with ophthalmic complications Diabetes mellitus complication detail: with diabetic retinopathy Laterality: bilateral (3) HTN (hypertension) Current Visit: Yes Status: Acute Plan: Will restart his home medications. Adjust as necessary. Qualifiers: Hypertension type: primary hypertension Qualified Code(s): I10 - Essential (primary) hypertension (4) Hyperlipidemia Current Visit: Yes Status: Acute - Advance Directives Does patient have a Living Will: No Does patient have a Durable POA for Healthcare: Yes - Code Status/Comfort Care Code Status Assessed: Yes Code Status: Full Code Physician Review: Patient Assessed, Agree with Above Assessment and Plan Critical Care: No Time Spent Managing Pts Care (In Minutes): 70
[2022-04-17] MEDS ORDERED: HYDRALAZINE HCL 20 MG/ML VIAL IV PRN (20:45)
[2022-04-17] MEDS ORDERED: D50W 25 GM/50 ML SYRINGE IV PRN (20:45)
[2022-04-17] MEDS ORDERED: GLUCAGON 1 MG/VIAL IM PRN (20:45)
[2022-04-17] MEDS: PREDNISOLONE ACETATE OPTH SCH (21:00)
[2022-04-17] MEDS ORDERED: D10W 125 ML IV PRN (21:01)
[2022-04-17] MEDS: ATORVASTATIN 20 MG TAB PO SCH (22:03)
[2022-04-17] MEDS: ACETAMINOPHEN 500 MG TAB PO PRN (22:03)
[2022-04-17] MEDS: lisinopriL 5 MG TAB PO SCH (22:04)
[2022-04-17] MEDS: FAMOTIDINE 20 MG TAB PO SCH (22:09)
[2022-04-18] MEDS: ACETAMINOPHEN 500 MG TAB PO PRN ×3 (05:53→21:20)
[2022-04-18] MEDS: carvediloL 3.125 MG TAB PO SCH ×2 (05:54→17:32)
[2022-04-18 06:01] LABS: Absolute Lymphocytes (CBC) 0.8 K/uL (0.7-4.9); Hematocrit 35.7 % (39.6-49.0); Lymphocytes % 17.1 % (15.3-44.8); MCV 86.3 fL (80-100); MPV 8.4 fL (7.6-11.3); RBC Red Blood Cell Count 4.14 M/uL (4.33-5.43)
[2022-04-18 06:21] LABS: Albumin 3.3 g/dL (3.4-5.0); Bilirubin Total 0.4 mg/dL (0.2-1.0); Magnesium 2.1 mg/dL (1.8-2.4); Phosphorus 3.5 mg/dL (2.5-4.9); Potassium 4.3 mmol/L (3.5-5.1); Protein, Total 6.7 g/dL (6.4-8.2); Troponin High Sensitivity 19.7 pg/mL (<58.9)
[2022-04-18] MEDS: INSULIN -REGULAR HUMAN 50 UNIT/0.5 ML ML SQ SCH ×8 (07:30→21:00)
--- NOTE | 2022-04-18 08:19 | P.PN ---
Subjective Date of Service: 04/18/22 Primary Care Provider: Jesse Chief Complaint: Chest Pain Subjective: No new changes Review of Systems 10-point ROS is otherwise unremarkable Physical Examination - Vital Signs Temperature: 98.1 F Blood Pressure: 131/63 Pulse: 64 Respirations: 15 Pulse Ox (%): 97 - Physical Exam General: Alert, In no apparent distress HEENT: Atraumatic, PERRLA, EOMI Neck: Supple, JVD not distended Respiratory: Clear to auscultation bilaterally, Normal air movement Cardiovascular: Regular rate/rhythm, Normal S1 S2 Gastrointestinal: Normal bowel sounds, No tenderness Musculoskeletal: No tenderness Integumentary: No rashes Neurological: Normal speech, Normal tone, Normal affect Lymphatics: No axilla or inguinal lymphadenopathy - Studies Laboratory Data (last 24 hrs) 04/17/22 10:07: WBC 4.5, Hgb 11.6 L, Hct 36.0 L, Plt Count 172 04/17/22 10:07: Sodium 138, Potassium 3.8, BUN 16, Creatinine 0.95, Glucose 99 Assessment And Plan - Current Problems (Diagnosis) (1) Chest pain due to CAD Current Visit: Yes Status: Acute Plan: will admit to the floor. Monitor serial troponins. Consult to Dr. Rizzo. 04/18 No chest pain this morning. He has no elevated troponins. Will await Dr. Streeter /So. We were sending to them to establish as an outpatient. So it is expedient them seeing him here in house (2) DM2 (diabetes mellitus, type 2) Current Visit: Yes Status: Acute Plan: will hold his usually metformin. May need contrast during an angiogram. Will start him on an ada diet. As well as sliding scale insulin Qualifiers: Diabetes mellitus chcf insulin use: without plant protection guard use Diabetes mellitus complication status: with ophthalmic complications Diabetes mellitus complication detail: with diabetic retinopathy Laterality: bilateral (3) HTN (hypertension) Current Visit: Yes Status: Acute Plan: Will restart his home medications. Adjust as necessary. Qualifiers: Hypertension type: primary hypertension Qualified Code(s): I10 - Essential (primary) hypertension (4) Hyperlipidemia Current Visit: Yes Status: Acute Discharge Plan: Home Plan to discharge in: 24 Hours - Code Status/Comfort Care Code Status Assessed: No Physician Review: Patient Assessed, Agree with Above Assessment and Plan Critical Care: No Time Spent Managing PTS Care (In Minutes): 20
[2022-04-18] MEDS: FLUTICASONE FUROATE NAS SCH (09:00)
[2022-04-18] MEDS: PREDNISOLONE ACETATE OPTH SCH ×2 (09:00→21:00)
[2022-04-18] MEDS: TAMSULOSIN 0.4 MG SR CAP PO SCH (10:04)
[2022-04-18] MEDS: CITALOPRAM 10 MG TABLET PO SCH (10:04)
[2022-04-18] MEDS: FAMOTIDINE 20 MG TAB PO SCH (10:05)
[2022-04-18] MEDS: ENOXAPARIN 40 MG/0.4 ML SQ SCH (10:05)
[2022-04-18] MEDS: CLOPIDOGREL 75 MG TABLET PO SCH (10:05)
--- NOTE | 2022-04-18 20:34 | CON ---
Date of Consultation: 04/18/2022 Reason For Consultation: Chest pain. History Of Present Illness: This is a 81-year-old male with a past medical history of diabetes, hype rtension, dyslipidemia, coronary artery disease, obstructive sleep apnea, and cardiac stents in the p ast who presented to the emergency room with chest pain, retrosternal, close to the left side, does n ot radiate any further along with heaviness and mild shortness of breath. Denies having any cough, n ausea, vomiting, diarrhea. . No diaphoresis. Past Medical History: As outlined above in the HPI. Medications: Refer reconciliation sheet for detailed list. Allergies: ASPIRIN, PENICILLIN, AND TRAMADOL. Family History: No premature coronary artery disease or cancer. Past Surgical History: Cardiac stents x3. Social History: He does not smoke or drink. Does not use any drugs. Review of Systems: All systems reviewed and they were negative except as mentioned in HPI. Physical Examination: Vital Signs: Reviewed. Head and Neck: Pupils are equal and reactive to light. Intact eye movements. No JVD. No cervical lymphadenopathy. Neck is supple. Thyroid is not enlarged. Lungs: Decreased breathing sounds bilaterally. No accessory muscle use or muscle retraction. Heart: Regular rate and rhythm. No extra sounds. Abdomen: Soft, nontender. Bowel sounds positive. No organomegaly. No masses or hernia. No rigidi ty or rebound. Extremities: No clubbing, cyanosis. Intact pulses. Skin: No rashes. Neurologic: Alert, awake, oriented x3. No acute focal deficits appreciated. Investigations: Creatinine 0.93. Troponins x3 are negative. Hemoglobin is 11.9. Assessment And Recommendations: 1.Chest pain with negative highly sensitive troponin x3. Pain is atypical, however, he has multiple risk factors. From Cardiology standpoint, this patient can be released today, and we will arrange f or him for a stress test and an echo as outpatient. Recommend on a baby aspirin and Coreg and also Plavix and sublingual nitroglycerin on as needed basis while the workup is pending to lucius gambino. 2.Hypertension. Blood pressure is acceptable. 3.Diabetes. Continue current home medications. Check sugars 3 times a day. Cover with insulin if needed. SR/MODL Voice ID: [id number] Report ID: [id number]
[2022-04-18] MEDS: ATORVASTATIN 20 MG TAB PO SCH (21:13)
[2022-04-18] MEDS: lisinopriL 5 MG TAB PO SCH (21:13)
[2022-04-19 05:03] VITALS: O2SAT 98
[2022-04-19] MEDS: ACETAMINOPHEN 500 MG TAB PO PRN (05:04)
[2022-04-19] MEDS: carvediloL 3.125 MG TAB PO SCH (05:05)
[2022-04-19] MEDS: INSULIN -REGULAR HUMAN 50 UNIT/0.5 ML ML SQ SCH ×4 (07:30→11:30)
[2022-04-19 08:47] VITALS: BP 127/62; TEMP 97.7
[2022-04-19] MEDS: PREDNISOLONE ACETATE OPTH SCH (09:00)
[2022-04-19] MEDS: CLOPIDOGREL 75 MG TABLET PO SCH (09:00)
[2022-04-19] MEDS: ENOXAPARIN 40 MG/0.4 ML SQ SCH (09:00)
[2022-04-19] MEDS: CITALOPRAM 10 MG TABLET PO SCH (09:00)
[2022-04-19] MEDS: FLUTICASONE FUROATE NAS SCH (09:00)
[2022-04-19] MEDS: FAMOTIDINE 20 MG TAB PO SCH (09:00)
[2022-04-19] MEDS: TAMSULOSIN 0.4 MG SR CAP PO SCH (09:00)
--- NOTE | 2022-04-19 12:30 | P.DS ---
Admission Date: 04/17/22 Discharge Date: 04/19/22 Primary Care Provider: Jesse Disposition: ROUTINE DISCHARGE Discharge Condition: GOOD Reason for Admission: Chest Pain - Problems (1) Chest pain due to CAD Current Visit: Yes Status: Acute (2) DM2 (diabetes mellitus, type 2) Current Visit: Yes Status: Acute Qualifiers: Diabetes mellitus middle or intermediate school principal insulin use: without nursing home use Diabetes mellitus complication status: with ophthalmic complications Diabetes mellitus complication detail: with diabetic retinopathy Laterality: bilateral (3) HTN (hypertension) Current Visit: Yes Status: Acute Qualifiers: Hypertension type: primary hypertension Qualified Code(s): I10 - Essential (primary) hypertension (4) Hyperlipidemia Current Visit: Yes Status: Acute Brief History of Present Illness: Patient is an office patient of [facility] [employer]. With a history of blindness, dm2, cad. For the past 4 days he has been having left sided chest pain. He had some last night. woke up at 2 in the morning. he had the pain on the left side. Stated that his left arm felt heavy. This morning he called his daughter. Who called the office. The patient was directed to come to the ER. He has seen Dr. Rizzo in the past. However has not for the last couple of years. Hospital Course: Patient was admitted for chest pain. He had negative troponins. Was seen in by Dr. Streeter who recommended a outpatient stress test. Will discharge the patient home on low dose carvediolol. Will give him bactrim for the uti. Follow up in a week with me in the office and Dr. Streeter in the next week or two to arrange for a stress test Vital Signs/Physical Exam: Temp Pulse Resp BP Pulse Ox 97.7 F 55 18 127/62 98 04/19/22 08:00 04/19/22 08:00 04/19/22 08:00 04/19/22 08:00 04/19/22 08:00 Laboratory Data at Discharge: WBC 4.8 K/uL (4.3-10.9) 04/18/22 05:26 Hgb 11.9 g/dL (13.6-17.9) L 04/18/22 05:26 Hct 35.7 % (39.6-49.0) L 04/18/22 05:26 Plt Count 160 K/uL (152-406) 04/18/22 05:26 PT 11.6 SECONDS (9.5-12.5) 04/17/22 17:08 INR 1.05 04/17/22 17:08 Sodium 138 mmol/L (136-145) 04/18/22 05:26 Potassium 4.3 mmol/L (3.5-5.1) 04/18/22 05:26 BUN 16 mg/dL (7-18) 04/18/22 05:26 Creatinine 0.93 mg/dL (0.55-1.3) 04/18/22 05:26 Glucose 88 mg/dL (74-106) 04/18/22 05:26 Phosphorus 3.5 mg/dL (2.5-4.9) 04/18/22 05:26 Magnesium 2.1 mg/dL (1.8-2.4) 04/18/22 05:26 Total Bilirubin 0.4 mg/dL (0.2-1.0) 04/18/22 05:26 AST 27 U/L (15-37) 04/18/22 05:26 ALT 22 U/L (12-78) 04/18/22 05:26 Alkaline Phosphatase 82 U/L (45-117) 04/18/22 05:26 Triglycerides 94 mg/dL (<150) 04/18/22 05:26 Cholesterol 111 mg/dL (<200) 04/18/22 05:26 HDL Cholesterol 32 mg/dL (40-60) L 04/18/22 05:26 Cholesterol/HDL Ratio 3.47 04/18/22 05:26 Home Medications: Atorvastatin Calcium [Lipitor] 80 mg PO DAILY 6PM 08/22/21 Citalopram Hydrobromide [Celexa] 40 mg PO DAILY 08/22/21 Famotidine [Pepcid*] 20 mg PO BID 08/22/21 Fluticasone Furoate [Flonase Sensimist] 2 spray PETERSON DAILY 08/22/21 Loratadine [Claritin*] 10 mg PO DAILY 08/22/21 Metformin HCl [Glucophage*] 500 mg PO BID 08/22/21 Nitroglycerin [Nitrostat*] 0.4 mg SL Q5MX3, Q15MX1, Q30M PRN 08/22/21 Prednisolone Acetate/Pf [Prednisolone Acet 1% Eye Drop] 1 drop EACH EYE BID 08/22/21 Tamsulosin HCl [Flomax] 0.4 mg PO DAILY 08/22/21 Isosorbide Mononitrate [Isosorbide Mononitrate ER] 30 mg PO DAILY #30 tab.er.24h 08/23/21 Clopidogrel Bisulfate [Plavix*] 75 mg PO DAILY 90 Days #90 tab 04/19/22 Smz./Tmp. [Bactrim Ds 800 MG/160 MG] 1 tab PO BID 3 Days #6 tab 04/19/22 carvediloL [Coreg*] 3.125 mg PO BID 6AM 6PM 30 Days #60 tab 04/19/22 New Medications: Smz./Tmp. [Bactrim Ds 800 MG/160 MG] 1 tab PO BID 3 Days #6 tab carvediloL [Coreg*] 3.125 mg PO BID 6AM 6PM 30 Days #60 tab Clopidogrel Bisulfate [Plavix*] 75 mg PO DAILY 90 Days #90 tab Followup: Ramiro Molina MD [ACTIVE - CAN ADMIT] - 1 Week Viral Streeter MD [ACTIVE - CAN ADMIT] - 1-2 Weeks
--- NOTE | 2022-04-21 14:03 | EKG ---
Test Date: 2022-04-17 Test Time: 09:53:09 Informaticist: ARCHIE MEASUREMENT RESULTS: Intervals: Rate: 68 KS: 150 QRSD: 74 QT: 426 QTc: 452 [place]: P: 49 KS: 150 QRS: 22 T: 83 INTERPRETIVE STATEMENTS: Normal sinus rhythm Normal ECG Compared to ECG 08/22/2021 08:17:48 Left ventricular hypertrophy no longer present T-wave abnormality no longer present Electronically Signed On 04-21-22 13:53:44 CDT by Viral Streeter
--- NOTE | 2022-04-21 14:03 | EKG ---
Test Date: 2022-04-17 Test Time: 09:51:15 Health Sciences Dean: ARCHIE MEASUREMENT RESULTS: Intervals: Rate: 70 IN: 148 QRSD: 72 QT: 428 QTc: 462 [place]: P: 47 IN: 148 QRS: 13 T: 75 INTERPRETIVE STATEMENTS: Normal sinus rhythm Normal ECG Compared to ECG 08/22/2021 08:17:48 Left ventricular hypertrophy no longer present T-wave abnormality no longer present Electronically Signed On 04-21-22 13:53:46 CDT by Viral Streeter
== END 2022-04-19 13:47 | disposition home or self-care (01) ==
LOC: ER 09:54 → ERHOLD 12:08 → 2ND 15:50
PROVIDERS: ADMIT Internal Medicine; ATTEND Internal Medicine
DX: R07.89 Other chest pain (principal); I25.10 Atherosclerotic heart disease of native coronary artery without angina pectoris; N39.0 Urinary tract infection, site not specified; I10 Essential (primary) hypertension; E11.319 Type 2 diabetes mellitus with unspecified diabetic retinopathy without macular edema; E78.5 Hyperlipidemia, unspecified; G47.33 Obstructive sleep apnea (adult) (pediatric); H54.8 Legal blindness, as defined in USA; N40.0 Benign prostatic hyperplasia without lower urinary tract symptoms; K21.9 Gastro-esophageal reflux disease without esophagitis; E78.00 Pure hypercholesterolemia, unspecified; J30.2 Other seasonal allergic rhinitis; F32.A Depression, unspecified; Z95.5 Presence of coronary angioplasty implant and graft; Z79.02 Long term (current) use of antithrombotics/antiplatelets; Z79.84 Long term (current) use of oral hypoglycemic drugs; Z79.899 Other long term (current) drug therapy; Z88.6 Allergy status to analgesic agent; Z88.0 Allergy status to penicillin; Z91.013 Allergy to seafood; Z20.822 Contact with and (suspected) exposure to COVID-19
CPT/HCPCS: 36415; 71045; 80048; 80053; 80061; 81003; 81015; 82947; 83036; 83735; 83880; 84100; 84484; 85025; 85379; 85610; 87077; 87086; 87088; 87186; 93005; 97112; 97116; 97161; 97530; 99284; G0378; J1650; U0003

== ENCOUNTER 2022-07-14 11:00 | Day surgery (SDC) | payer OTHER ==
[2022-07-11 15:29] LABS: Absolute Lymphocytes (CBC) 0.6 K/uL (0.7-4.9); Hematocrit 37.6 % (39.6-49.0); Lymphocytes % 12.8 % (15.3-44.8); MCV 86.1 fL (80-100); MPV 8.3 fL (7.6-11.3); RBC Red Blood Cell Count 4.36 M/uL (4.33-5.43)
[2022-07-11 15:33] LABS: SARS-CoV-2 Antigen Rapid Res Negative (Negative)
[2022-07-11 15:35] LABS: Potassium 3.9 mmol/L (3.5-5.1)
[2022-07-11 15:39] LABS: Protime INR 1.09
[~2022-07-14 11:00] MED LIST: NA CHLORIDE 0.9% 500 ML ONE
[2022-07-14] MEDS ORDERED: LIDOCAINE 1% MPF 30 ML VIAL ONE (11:23)
[2022-07-14] MEDS ORDERED: HEPA 1000U/500MLS 1,000 UNIT/500 ML BAG IV ONE (11:23)
[2022-07-14] MEDS ORDERED: FENTANYL CITR 100 MCG/2 ML ONE (11:25)
[2022-07-14] MEDS ORDERED: ASPIRIN 325 MG TAB ONE (11:26)
[2022-07-14] MEDS ORDERED: HEPARIN 5000 UNIT/ML 1 ML VIAL ONE (11:26)
[2022-07-14] MEDS ORDERED: VERAPAMIL HCL 10 MG/4 ML VIAL IV ONE (11:26)
[2022-07-14] MEDS ORDERED: MIDAZOLAM HCL 2 MG/2 ML INJ ONE (11:26)
[2022-07-14] MEDS ORDERED: CLOPIDOGREL 75 MG TABLET ONE (11:26)
[2022-07-14] MEDS ORDERED: NITROGLYCERIN 100 MCG/ML SYR (for cath lab use only) IV ONE (11:27)
[2022-07-14] MEDS ORDERED: ATROPINE SULF 1 MG/10 ML SYR IV ONE (11:27)
[2022-07-14] MEDS ORDERED: NITROGLYCERIN/D5W 25 MG/250 ML BTL IV ONE (11:27)
[2022-07-14] MEDS ORDERED: TICAGRELOR 90 MG TABLET PO ONE (11:27)
[2022-07-14] MEDS ORDERED: METHYLPREDNISOLONE 125 MG INJ ONE (12:05)
[2022-07-14] MEDS ORDERED: DIPHENHYDRAMINE 50 MG/ML VIAL ONE (12:05)
--- NOTE | 2022-07-14 14:16 | EKG ---
Test Date: 2022-07-11 Test Time: 15:01:09 Barrel Polisher: ESTRELLA MEASUREMENT RESULTS: Intervals: Rate: 67 NM: 150 QRSD: 68 QT: 430 QTc: 454 [place]: P: 46 NM: 150 QRS: 3 T: 61 INTERPRETIVE STATEMENTS: Normal sinus rhythm Moderate voltage criteria for LVH, may be normal variant Nonspecific T wave abnormality Abnormal ECG Compared to ECG 04/17/2022 09:53:09 Left ventricular hypertrophy now present T-wave abnormality now present Electronically Signed On 07-14-22 14:14:13 CDT by Viral Streeter
[2022-07-14 16:28] VITALS: BP 138/80; O2SAT 98
--- NOTE | 2022-07-15 02:52 | OP ---
Date of Procedure: 07/14/2022 Surgeon: SHANEKA HAYES Procedure Performed: Selective coronary angiogram. Indication: Unstable angina. Access: Right radial artery 6-Turkish, closed with TR band. Complications: None. Bleeding: Less than 10 mL. Sedation: Total sedation time was 45 minutes. Description Of Procedure: After the risks, benefits, and alternatives were explained, the patient ag rocío to proceed and signed informed consent. The patient was brought into the cardiac catheterizatio n laboratory, prepped and draped in the usual sterile fashion. Then, I accessed the right radial art thiago using pediatric micropuncture kit, I placed 6-Turkish slender sheath and took 5-Turkish Bunn 4-0 c atheter into the aortic root. I engaged the RCA, took standard views, and could not engage the left main due to tortuosity using the Bunn catheter. So, I exchanged for a 6-Turkish JL-3 5 catheter and with difficulty I was able to engage the left main and took standard views, and then I removed the ca theter and the sheath, placed TR band. Good hemostasis. Findings: 1.Left main is very large and normal. 2.LAD, the proximal before the diagonal branch had 70% to 80% stenosis; focal, and then between the diagonal #1 and diagonal #2 there is an extremely heavily calcified lesion that is probably about 15 mm in length, and producing about 80% to 90% stenosis. Then, there is a patent stent of the LAD all the way to the distal portion with distal 20% to 30% ISR, and there is a diagonal branch, it is a criss y large vessel and had patent proximal stent. 3.Left circumflex is a very large vessel and dominant with proximal 20%, and at the takeoff of the O M 1 there is about 40% focally and then it gives the left PLP and the left PDA supplying the inferior wall, with no significant disease. 4.RCA is very small and nondominant, and no significant disease. Conclusion: 1.Severe proximal and mid LAD stenosis that is heavily calcified, requires shockwave plus PCI. We w ill plan to arrange for that to be done in [place] in the next 3 to 4 weeks. 2.Patent [id number] LAD stent with mild ISR and patent diagonal #1 branch stent, and otherwise mo derate nonobstructive coronary artery disease. Plan: 1.Schedule PCI with shockwave of the proximal mid LAD at [place] in 3 to 4 weeks. 2.Aspirin, Plavix and high-dose statin. SR/MODL Voice ID: [id number] Report ID: [id number]
== END 2022-07-14 16:29 | disposition home or self-care (01) ==
LOC: CCL 11:00
PROVIDERS: ATTEND Internal Medicine
DX: I25.110 Atherosclerotic heart disease of native coronary artery with unstable angina pectoris (principal); T82.855A Stenosis of coronary artery stent, initial encounter; I70.212 Atherosclerosis of native arteries of extremities with intermittent claudication, left leg; I10 Essential (primary) hypertension; E78.5 Hyperlipidemia, unspecified; Z79.899 Other long term (current) drug therapy; Z88.0 Allergy status to penicillin; Z88.5 Allergy status to narcotic agent; Z91.041 Radiographic dye allergy status; Z20.822 Contact with and (suspected) exposure to COVID-19
CPT/HCPCS: 93005; 85025; 80048; 36415; 85610; 82947; 85730; 93454; 87811; C1893; Q9967; J1200; J1644 ×2; J2250; J3010; J7040; J2930

== ENCOUNTER 2022-08-20 14:55 | Emergency (ER) | payer OTHER ==
[2022-08-20 15:33] LABS: Absolute Lymphocytes (CBC) 0.7 K/uL (0.7-4.9); Hematocrit 35.7 % (39.6-49.0); Lymphocytes % 15.4 % (15.3-44.8); MCV 86.3 fL (80-100); MPV 8.2 fL (7.6-11.3); Protime INR 1.05; RBC Red Blood Cell Count 4.13 M/uL (4.33-5.43)
[2022-08-20 15:48] LABS: Albumin 3.1 g/dL (3.4-5.0); Bilirubin Direct 0.2 mg/dL (0-0.2); Bilirubin Total 0.5 mg/dL (0.2-1.0); Magnesium 2.5 mg/dL (1.8-2.4); Potassium 3.9 mmol/L (3.5-5.1); Protein, Total 6.7 g/dL (6.4-8.2); Troponin High Sensitivity 17.8 pg/mL (<58.9)
--- NOTE | 2022-08-20 16:02 | ER ---
Nurse's Notes [facility] Name: Kel Acuna Age: 81 yrs Sex: Male : 1940 Arrival Date: 08/20/2022 Time: 14:57 Bed 5 Private MD: Diagnosis: Unstable angina Presentation: 08/20 14:59 Chief complaint: EMS states: toned out to home for chest pressure X 3 weeks. Starts in ld1 midsternal - radiates to left side of neck. Coronavirus screen: At this time, the client does not indicate any symptoms associated with coronavirus-19. Ebola Screen: No symptoms or risks identified at this time. Initial Sepsis Screen: Does the patient meet any 2 criteria? No. Patient's initial sepsis screen is negative. Does the patient have a suspected source of infection? No. Patient's initial sepsis screen is negative. Risk Assessment: Do you want to hurt yourself or someone else? Patient reports no desire to harm self or others. Onset of symptoms was August 20, 2022. 14:59 Method Of Arrival: EMS: [facility] ld1 14:59 Acuity: LEONID 3 ld1 Triage Assessment: 15:01 General: Appears in no apparent distress. comfortable, Behavior is calm, cooperative, ld1 appropriate for age. Pain: Complains of pain in chest Pain radiates to neck Pain currently is 5 out of 10 on a pain scale. EENT: No signs and/or symptoms were reported regarding the EENT system. Neuro: Level of Consciousness is awake, alert, obeys commands, Oriented to person, place, time, situation, Appropriate for age. Cardiovascular: Capillary refill < 3 seconds Patient's skin is warm and dry. Respiratory: Airway is patent Respiratory effort is even, unlabored. GI: Abdomen is round non-distended. : No signs and/or symptoms were reported regarding the genitourinary system. Derm: No signs and/or symptoms reported regarding the dermatologic system. Musculoskeletal: No signs and/or symptoms reported regarding the musculoskeletal system. Historical: - Allergies: 14:58 Aspirin; ld1 14:58 PENICILLINS; ld1 14:58 SHELLFISH; ld1 14:58 Tramadol HCl; ld1 14:58 Iodine; ld1 - PMHx: 14:58 stroke; BLIND; kidney disease; Hypercholesterolemia; diabetes mellitus; Myocardial ld1 infarction; - PSHx: 14:58 stents; ld1 - Immunization history:: Adult Immunizations up to date, Client reports receiving the 2nd dose of the Covid vaccine. - Social history:: Smoking status: Patient denies any tobacco usage or history of. Patient/guardian denies using alcohol. Screenin:03 Abuse screen: Denies threats or abuse. Denies injuries from another. Nutritional ld1 screening: No deficits noted. Tuberculosis screening: No symptoms or risk factors identified. Fall Risk None identified. Assessment: 15:03 Reassessment: see triage assessment. ld1 19:26 General: Appears in no apparent distress. Behavior is calm, cooperative, Smells of. kd3 Neuro: Level of Consciousness is awake, alert, obeys commands, Oriented to person, place, time, situation. Cardiovascular: Patient's skin is warm and dry. Respiratory: Airway is patent Trachea midline Respiratory effort is even, unlabored, Respiratory pattern is regular, symmetrical. 20:14 Pain: Pain began gradually. kd3 Vital Signs: 14:59 BP 154 / 79; Pulse 65; Resp 18; Pulse Ox 97% on 2 lpm NC; Weight 72.57 kg; Height 5 ft. ld1 5 in. (165.10 cm); Pain 5/10; 15:22 BP 146 / 71; Pulse 63; Resp 18; Pulse Ox 100% on R/A; ld1 15:57 Temp 97.1; Weight 62.14 kg; Height 5 ft. 2 in. (157.48 cm); ph 15:57 BP 146 / 71; Pulse 68; Resp 18; Pulse Ox 100% on R/A; ph 19:27 BP 147 / 74; Pulse 68; Resp 16; Pulse Ox 100% ; kd3 15:57 Body Mass Index 25.06 (62.14 kg, 157.48 cm) ph ED Course: 14:57 Patient arrived in ED. ld1 15:01 Stacy Swann, RN is Primary Nurse. ph 15:01 Triage completed. ld1 15:01 Inserted saline lock: 20 gauge in right forearm, using aseptic technique. ld1 15:01 Arm band placed on right wrist. ld1 15:03 No provider procedures requiring assistance completed. Patient maintains SpO2 ld1 saturation greater than 95% on room air. 15:03 Patient has correct armband on for positive identification. Placed in gown. Bed in low ld1 position. Call light in reach. Side rails up X2. teletypesetter monitor on. Pulse ox on. NIBP on. Door closed. Noise minimized. Warm blanket given. 15:22 Piyush Rodriguez NP is PHCP. pm1 15:22 Prasad Mesa MD is Attending Physician. pm1 15:44 XRAY Chest (1 view) In Process Unspecified. EDMS 16:09 initiated transfer to [facility]. bd 16:12 pt denied at [facility] due to hospital being on transfer closure, per Aminata. bd 17:32 initiated transfer to [facility]. bd 19:37 Primary Nurse role handed off by Stacy Swann RN kd3 19:37 Priscilla Britton RN is Primary Nurse. kd3 20:14 Patient did not have IV access during this emergency room visit. kd3 Administered Medications: 17:50 Drug: Nitroglycerin 0.4 mg Route: Sublingual; ph 19:27 Follow up: Response: No adverse reaction; Pain is decreased kd3 Medication: 15:03 VIS not applicable for this client. ld1 Outcome: 16:02 ER care complete, transfer ordered by . pm1 20:13 Transferred by ground EMS kd3 20:13 Condition: stable 20:13 Discharge instructions given to patient, Instructed on follow up and referral plans. the need for transfer, Demonstrated understanding of instructions, follow-up care. 20:14 Patient left the ED. kd3 Signatures: Dispatcher [employer] EDMN Key Power Stayc Swann RN RN Piyush Rodriguez NP SPORTS BOOK WRITER pm1 Philomena Mulligan RN RN ld1 Priscilla Britton RN RN kd3 Corrections: (The following items were deleted from the chart) 14:59 14:58 Allergies: Demerol; ld1 ld1 14:59 14:58 PMHx: Myocarditis; ld1 ld1
--- NOTE | 2022-08-20 16:02 | EDPHYS ---
Physician Documentation [facility] Name: Kel Acuna Age: 81 yrs Sex: Male : 1940 Arrival Date: 08/20/2022 Time: 14:57 Bed 5 Private MD: ED Physician Prasad Mesa HPI: 08/20 15:14 This 81 yrs old Male presents to ER via EMS with complaints of Chest Pressure. pm1 15:14 The patient or guardian reports chest pain that is located primarily in the mid-sternal pm1 area. Onset: 3 day(s) ago. The pain does not radiate. Associated signs and symptoms: Pertinent positives: left sided neck pain. The chest pain is described as a pressure. Duration: The patient or guardian reports a single episode, that is still ongoing. Modifying factors: The symptoms are alleviated by nothing. the symptoms are aggravated by nothing. Severity of pain: in the emergency department the pain has improved initially pain was 6/10 with EMS, now 2/10. Cardiac cath on 07/14/[address] Streeter. Patient reports 90% blockage in one of his stents. Patient with 3 stents about 7 years ago. Patient was supposed to have intervention for the blockage today at [facility] at 2:[address] Streeter but was contacted by the hospital and had the procedure canceled due to no electricity at the facility. Patient was instructed to report to the ER if he had any chest pain or any issues. Historical: - Allergies: 14:58 Aspirin; ld1 14:58 PENICILLINS; ld1 14:58 SHELLFISH; ld1 14:58 Tramadol HCl; ld1 14:58 Iodine; ld1 - PMHx: 14:58 stroke; BLIND; kidney disease; Hypercholesterolemia; diabetes mellitus; Myocardial ld1 infarction; - PSHx: 14:58 stents; ld1 - Immunization history:: Adult Immunizations up to date, Client reports receiving the 2nd dose of the Covid vaccine. - Social history:: Smoking status: Patient denies any tobacco usage or history of. Patient/guardian denies using alcohol. ROS: 15:14 Constitutional: Negative for fever, chills, and weight loss. pm1 15:14 Respiratory: Negative for shortness of breath, cough, wheezing, and pleuritic chest pain, Abdomen/GI: Negative for abdominal pain, nausea, vomiting, diarrhea, and constipation, Back: Negative for injury and pain, MS/Extremity: Negative for injury and deformity, Skin: Negative for injury, rash, and discoloration. 15:14 Neuro: Negative for headache, weakness, numbness, tingling, and seizure. 15:14 Cardiovascular: Positive for chest pain, of the mid-sternal area, Negative for edema, palpitations. 15:14 All other systems are negative. Exam: 15:14 Constitutional: This is a well developed, well nourished patient who is awake, alert, pm1 and in no acute distress. Head/Face: Normocephalic, atraumatic. 15:14 Back: No spinal tenderness. No costovertebral tenderness. Full range of motion. Skin: Warm, dry with normal turgor. Normal color with no rashes, no lesions, and no evidence of cellulitis. MS/ Extremity: Pulses equal, no cyanosis. Neurovascular intact. Full, normal range of motion. 15:14 Eyes: Exam is negative for acute changes. 15:14 Cardiovascular: Exam negative for acute changes, Rate: normal, Rhythm: regular, Pulses: no pulse deficits are appreciated, Heart sounds: normal, normal S1and S2. 15:14 Respiratory: Exam negative for acute changes, respiratory distress, shortness of breath. 15:14 Abdomen/GI: Exam negative for acute changes, Palpation: abdomen is soft and non-tender, in all quadrants. 15:14 Neuro: Exam negative for acute changes, Orientation: is normal, Mentation: is normal, Motor: is normal, moves all fours. Vital Signs: 14:59 BP 154 / 79; Pulse 65; Resp 18; Pulse Ox 97% on 2 lpm NC; Weight 72.57 kg; Height 5 ft. ld1 5 in. (165.10 cm); Pain 5/10; 15:22 BP 146 / 71; Pulse 63; Resp 18; Pulse Ox 100% on R/A; ld1 15:57 Temp 97.1; Weight 62.14 kg; Height 5 ft. 2 in. (157.48 cm); ph 15:57 BP 146 / 71; Pulse 68; Resp 18; Pulse Ox 100% on R/A; ph 19:27 BP 147 / 74; Pulse 68; Resp 16; Pulse Ox 100% ; kd3 15:57 Body Mass Index 25.06 (62.14 kg, 157.48 cm) ph MDM: 15:22 Patient medically screened. pm1 15:53 Physician consultation: Viral Streeter MD was called at 15:53, was contacted at 15:53, pm1 regarding consult, patient's condition, after a discussion of the case, a recommendation for transfer for higher level of care is made, He requested transfer to the medical center because he will not be able to preform any intervention here for the patient's chest pain. 18:22 Physician consultation: Cardiology Shirley regarding regarding transfer, patient's pm1 condition, and will see patient. 18:46 Data reviewed: vital signs. Data interpreted: Pulse oximetry: on room air is 100 %. pm1 Interpretation: normal. 18:57 Physician consultation: Hospital[facility]ina Mccall was contacted at 18:57, regarding pm1 regarding transfer, patient's condition, and will see patient. 08/20 15:14 Order name: Basic Metabolic Panel; Complete Time: 15:49 ph 08/20 15:14 Order name: CBC with Diff; Complete Time: 15:37 ph 08/20 15:14 Order name: LFT's; Complete Time: 15:49 ph 08/20 15:14 Order name: Magnesium; Complete Time: 15:49 ph 08/20 15:14 Order name: NT PRO-BNP; Complete Time: 15:49 ph 08/20 15:14 Order name: PT-INR; Complete Time: 15:37 ph 08/20 15:14 Order name: Troponin HS; Complete Time: 15:49 ph 08/20 15:14 Order name: XRAY Chest (1 view); Complete Time: 16:11 ph 08/20 15:14 Order name: EKG; Complete Time: 15:14 ph 08/20 15:14 Order name: Cardiac monitoring; Complete Time: 15:22 ph 08/20 15:14 Order name: EKG - Nurse/Tech; Complete Time: 15:22 ph 08/20 15:14 Order name: IV Saline Lock; Complete Time: 15:22 ph 08/20 15:31 Order name: SARS RAPID; Complete Time: 16:25 pm1 08/20 15:14 Order name: Labs collected and sent; Complete Time: 15:22 ph 08/20 15:14 Order name: O2 Per Protocol; Complete Time: 15:22 ph 08/20 15:14 Order name: O2 Sat Monitoring; Complete Time: : ph EC:30 Rate is 65 beats/min. Rhythm is regular, Normal Sinus Rhythm. QRS interval is normal. pm1 QT interval is normal. No Q waves. T waves are Normal. No ST changes noted. Clinical impression: Normal sinus rhythm, right superior axis deviation, nonspecific T wave abnormality, prolonged QT, abnormal EKG. Administered Medications: 17:50 Drug: Nitroglycerin 0.4 mg Route: Sublingual; ph 19:27 Follow up: Response: No adverse reaction; Pain is decreased kd3 Disposition Summary: 08/20/22 16:02 Transfer Ordered Transfer Location: Other Acute Care Facility pm1 Reason: Higher level of care pm1 Condition: Stable pm1 Problem: new pm1 Symptoms: have improved pm1 Accepting Physician: (08/20/22 20:14) kd3 Diagnosis - Unstable angina pm1 Forms: - Medication Reconciliation Form pm1 - SBAR form pm1 Signatures: Dispatcher [employer] EDStacy Stein RN RN Piyush Rodriguez, KYREE HOOP MAKER MACHINE pm1 Philomena Mulligan RN RN ld1 Priscilla Birtton RN RN kd3 Corrections: (The following items were deleted from the chart) 14:59 14:58 Allergies: Demerol; ld1 ld1 14:59 14:58 PMHx: Myocarditis; ld1 ld1 15:55 15:53 Physician consultation: Viral Streeter MD was called at 15:53, was contacted at pm1 15:53, regarding consult, patient's condition, after a discussion of the case, a recommendation for transfer for higher level of care is made, He requested transfer because he will not be able to preform any intervention here for the patient's chest pain, pm1 20:14 16:02 pm1 kd3
--- NOTE | 2022-08-20 16:03 | RAD REPORT ---
EXAM DESCRIPTION: RAD - Chest Single View - 08/20/2022 3:43 pm CLINICAL HISTORY: CHEST PAIN COMPARISON: Portable 04/17/2022 and 08/22/2021 TECHNIQUE: AP portable chest image was obtained 08/20/2022 3:43 pm . FINDINGS: Diffusely prominent interstitial pattern is present. No peripheral consolidation. In the r ight upper lobe there is a small 6-8 mm nodular density not clearly seen on the 2 comparison studies. This is potentially some motion artifact. Development of a true, small nodule is not excluded. No ot her mass or nodule identifiable. Heart and vasculature are normal. No measurable pleural effusion and no pneumothorax. No acute bony abnormality seen. Aortic atherosclerotic calcifications are present. No aortic aneurysm seen. IMPRESSION: Diffusely prominent interstitial lung pattern accentuated slightly by shallow inspiratio n. Severity of chronic disease could mask interstitial edema or infiltrate. Vague nodular density in the right upper lung field could be a true nodule or summation of overlappin g structures. Repeat two-view chest examination would be recommended once the patient has recovered from any acute clinical process.
[2022-08-20 16:15] LABS: SARS-CoV-2 Antigen Rapid Res Negative (Negative)
[2022-08-20] MEDS ORDERED: NITROGLYCERIN 0.4 MG/TAB SL ONE (17:51)
[2022-08-20 21:49] VITALS: BP 146/71; O2SAT 100
[2022-08-20 21:50] VITALS: TEMP 97.1
--- NOTE | 2022-08-21 14:54 | EKG ---
Test Date: 2022-08-20 Test Time: 15:24:35 Taxation Accountant: PH MEASUREMENT RESULTS: Intervals: Rate: 65 MI: 156 QRSD: 72 QT: 448 QTc: 465 [place]: P: MI: 156 QRS: 189 T: 153 INTERPRETIVE STATEMENTS: Normal sinus rhythm Right superior axis deviation Nonspecific T wave abnormality Prolonged QT Abnormal ECG Compared to ECG 07/11/2022 15:01:09 Right superior axis now present Prolonged QT interval now present Left ventricular hypertrophy no longer present T-wave abnormality still present Electronically Signed On 08-21-22 14:52:57 LOCAL TANKER TRUCK DRIVER by Viral Streeter
== END 2022-08-20 20:14 ==
LOC: ER 14:55
DX: I20.0 Unstable angina (principal); I25.2 Old myocardial infarction; Z20.822 Contact with and (suspected) exposure to COVID-19; Z88.0 Allergy status to penicillin; Z88.5 Allergy status to narcotic agent; Z88.6 Allergy status to analgesic agent; Z91.013 Allergy to seafood; Z91.048 Other nonmedicinal substance allergy status
CPT/HCPCS: 36415; 71045; 80048; 80076; 83735; 83880; 84484; 85025; 85610; 87811; 93005; 99285

== ENCOUNTER 2023-08-03 11:20 | Observation (INO) | payer OTHER ==
[2023-08-03 12:08] LABS: Hematocrit 41.3 % (39.6-49.0); MCV 94.3 fL (80-100); MPV 7.8 fL (7.6-11.3); Platelets 151 thou/uL (152-406); RBC Red Blood Cell Count 4.37 M/uL (4.33-5.43)
[2023-08-03 12:09] LABS: Absolute Lymphocytes (CBC) 0.8 K/uL (0.7-4.9); Lymphocytes % 16.1 % (15.3-44.8); Protime INR 1.1
[2023-08-03 12:26] LABS: Albumin 2.9 g/dL (3.4-5.0); Bilirubin Direct 0.2 mg/dL (0-0.2); Bilirubin Indirect, Calculated 0.3 mg/dL (0.2-0.8); Bilirubin Total 0.5 mg/dL (0.2-1.0); Magnesium 2.1 mg/dL (1.6-2.4); Potassium 3.5 mEq/L (3.5-5.1); Protein, Total 6.6 g/dL (6.4-8.2); Troponin High Sensitivity 13.3 pg/mL (<58.9)
--- NOTE | 2023-08-03 13:02 | RAD REPORT ---
EXAM DESCRIPTION: Kaylee Single View08/03/2023 12:18 pm CLINICAL HISTORY: Chest pain COMPARISON: 2021 FINDINGS: The lungs appear clear of acute infiltrate. The heart is normal size Postsurgical changes involve the chest IMPRESSION: No acute abnormalities displayed
[2023-08-03 13:51] LABS: SARS-CoV-2 Antigen Rapid Res Negative (Negative)
--- NOTE | 2023-08-03 14:02 | EDPHYS ---
Physician Documentation [facility] Name: Kel Acuna Age: 82 yrs Sex: Male : 1940 Arrival Date: 08/03/2023 Time: 11:20 Bed 3 Private MD: ED Physician Marcelino Lazcano HPI: 08/03 11:33 This 82 yrs old Male presents to ER via EMS with complaints of Chest Pain. [facility] 11:33 The patient or guardian reports chest pain that is located primarily in the substernal [facility] area. Onset: last night. The pain does not radiate. The chest pain is described as dull. EMS care prior to arrival includes: nitroglycerin, x 1, with resolution of the chest pain. Patient presents from [facility] for chest pain. The patient states that it started last night and resolved with Tylenol, but returned this morning. EMS reported low-grade fever last night. No other symptoms at this time. He stated his PCP is Dr. Howard. EMS gave 1 nitro SL and CP resolved.. Historical: - Allergies: 11:38 Aspirin; ko1 11:38 Iodine; ko1 11:38 PENICILLINS; ko1 11:38 SHELLFISH; ko1 11:38 Tramadol HCl; ko1 - PMHx: 11:38 BLIND; diabetes mellitus; Hypercholesterolemia; kidney disease; Myocardial infarction; ko1 stroke; - PSHx: 11:38 stents; ko1 - Immunization history:: Adult Immunizations up to date. - Social history:: Smoking status: Patient denies any tobacco usage or history of. ROS: 11:33 Constitutional: Negative for fever, chills, and weight loss, Eyes: Negative for injury, jh7 pain, redness, and discharge, ENT: Negative for injury, pain, and discharge, Neck: Negative for injury, pain, and swelling, Respiratory: Negative for shortness of breath, cough, wheezing, and pleuritic chest pain, Abdomen/GI: Negative for abdominal pain, nausea, vomiting, diarrhea, and constipation, Back: Negative for injury and pain, MS/Extremity: Negative for injury and deformity, Skin: Negative for injury, rash, and discoloration, Neuro: Negative for headache, weakness, numbness, tingling, and seizure, 11:33 Cardiovascular: Positive for chest pain, Negative for palpitations, 11:33 All other systems are negative, Exam: 11:33 Constitutional: This is a well developed, well nourished patient who is awake, alert, jh7 and in no acute distress. Head/Face: Normocephalic, atraumatic. Neck: Trachea midline, no thyromegaly or masses palpated, and no cervical lymphadenopathy. Supple, full range of motion without nuchal rigidity, or vertebral point tenderness. No Meningismus. Cardiovascular: Regular rate and rhythm with a normal S1 and S2. No gallops, murmurs, or rubs. Normal PMI, no JVD. No pulse deficits. Respiratory: Lungs have equal breath sounds bilaterally, clear to auscultation and percussion. No rales, rhonchi or wheezes noted. No increased work of breathing, no retractions or nasal flaring. Abdomen/GI: Soft, non-tender, with normal bowel sounds. No distension or tympany. No guarding or rebound. No evidence of tenderness throughout. Back: No spinal tenderness. No costovertebral tenderness. Full range of motion. Skin: Warm, dry with normal turgor. Normal color with no rashes, no lesions, and no evidence of cellulitis. MS/ Extremity: Pulses equal, no cyanosis. Neurovascular intact. Full, normal range of motion. Neuro: Awake and alert, GCS 15, oriented to person, place, time, and situation. Motor strength 5/5 in all extremities. Sensory grossly intact. Normal gait. Vital Signs: 11:33 BP 139 / 67; Pulse 69; Resp 16; Pulse Ox 96% ; ko1 14:02 BP 108 / 80; Pulse 66; Resp 16; Pulse Ox 100% ; ko1 14:26 BP 114 / 69; Pulse 68; Resp 12; Pulse Ox 97% ; ko1 15:00 BP 133 / 75; Pulse 66; Resp 18; Pulse Ox 99% on R/A; db 16:00 BP 131 / 54; Pulse 59; Resp 18; Pulse Ox 99% on R/A; db 17:00 BP 112 / 63; Pulse 58; Resp 18; Pulse Ox 100% on R/A; db 18:19 BP 120 / 68; Pulse 57; Resp 16; Pulse Ox 100% ; iw 19:00 BP 152 / 96; Pulse 61; Resp 15; Temp 97.8(O); Pulse Ox 100% ; nw1 19:30 BP 155 / 78; Pulse 62; Resp 16; Pulse Ox 100% ; nw1 20:00 BP 160 / 89; Pulse 67; Resp 15; Pulse Ox 100% on R/A; nw1 20:30 BP 145 / 73; Pulse 72; Resp 15; Pulse Ox 100% ; nw1 MDM: 11:34 Patient medically screened. [facility] 13:59 ED course: Reassessed patient. He states that his chest pain is returning and he would [facility] like another nitroglycerin.. 14:03 Differential diagnosis: abnormal EKG, acute myocardial infarction, acute pericarditis, jh7 coronary artery disease chest wall pain, costochondritis, myocarditis, pneumonia, unstable angina. Data reviewed: vital signs, nurses notes, lab test result(s), EKG, radiologic studies, plain films. Consideration of Admission/Observation Patient was admitted/placed on observation. I considered the following discharge prescriptions or medication management in the emergency department Medications were administered in the Emergency Department. See MAR. Independent interpretation of the following test(s) in the Emergency Department EKG: See my EKG interpretation above. Care significantly affected by the following chronic conditions: Diabetes, Hypertension, VA. Scoring Tools HEART Score: History: Age: Risk Factors: Total Score = 7. Counseling: I had a detailed discussion with the patient and/or guardian regarding the historical points, exam findings, and any diagnostic results supporting the discharge/admit diagnosis, the need for further work-up and treatment in the hospital. Response to treatment: the patient's symptoms have mildly improved after treatment. 08/03 11:34 Order name: Basic Metabolic Panel; Complete Time: 12:44 [facility] 08/03 11:34 Order name: CBC with Diff; Complete Time: 12:15 [facility] 08/03 11:34 Order name: LFT's; Complete Time: 12:44 [facility] 08/03 11:34 Order name: Magnesium; Complete Time: 12:44 [facility] 08/03 11:34 Order name: NT PRO-BNP; Complete Time: 12:44 [facility] 08/03 11:34 Order name: PT-INR; Complete Time: 12:15 [facility] 08/03 11:34 Order name: Troponin HS; Complete Time: 12:44 [facility] 08/03 12:44 Order name: SARS RAPID; Complete Time: 13:54 [facility] 08/03 13:04 Order name: Troponin High Sensitivity: draw at 2pm; Complete Time: 14:02 7 08/03 14:55 Order name: Urinalysis w/ reflexes EDMS 08/03 14:55 Order name: Basic Metabolic Panel EDMS 08/03 14:55 Order name: Basic Metabolic Panel EDMS 08/03 14:55 Order name: Basic Metabolic Panel EDMS 08/03 14:55 Order name: Basic Metabolic Panel EDMS 08/03 14:55 Order name: Basic Metabolic Panel EDMS 08/03 14:55 Order name: Basic Metabolic Panel EDMS 08/03 14:55 Order name: CBC with Automated Diff EDMS 08/03 14:55 Order name: CBC with Automated Diff EDMS 08/03 14:55 Order name: CBC with Automated Diff EDMS 08/03 14:55 Order name: CBC with Automated Diff EDMS 08/03 14:55 Order name: CBC with Automated Diff EDMS 08/03 14:55 Order name: CBC with Automated Diff EDMS 08/03 14:55 Order name: Magnesium EDMS 08/03 14:55 Order name: Magnesium EDMS 08/03 14:55 Order name: Magnesium EDMS 08/03 14:55 Order name: Magnesium EDMS 08/03 14:55 Order name: Magnesium EDMS 08/03 14:55 Order name: Magnesium EDMS 08/03 14:55 Order name: Phosphorus EDMS 08/03 14:55 Order name: Phosphorus EDMS 08/03 14:55 Order name: Phosphorus EDMS 08/03 14:55 Order name: Phosphorus EDMS 08/03 14:55 Order name: Phosphorus EDMS 08/03 14:55 Order name: Phosphorus EDMS 08/03 14:55 Order name: Troponin High Sensitivity EDMS 08/03 14:55 Order name: Troponin High Sensitivity EDMS 08/03 14:55 Order name: Troponin High Sensitivity EDMS 08/03 19:13 Order name: Glucose, Ancillary Testing EDMS 08/03 11:34 Order name: XRAY Chest (1 view); Complete Time: 13:03 [facility] 08/03 11:34 Order name: EKG; Complete Time: 11:35 [facility] 08/03 11:34 Order name: Cardiac monitoring; Complete Time: 12:07 [facility] 08/03 11:34 Order name: EKG - Nurse/Tech; Complete Time: 11:52 [facility] 08/03 11:34 Order name: IV Saline Lock; Complete Time: 12:07 [facility] 08/03 11:34 Order name: Labs collected and sent; Complete Time: 12:07 [facility] 08/03 11:34 Order name: O2 Per Protocol; Complete Time: 12:07 [facility] 08/03 11:34 Order name: O2 Sat Monitoring; Complete Time: 12:07 [facility] EC:37 Rate is 69 beats/min. Rhythm is regular. QRS [place] is Normal. PA interval is normal at [facility] 158 msec. QRS interval is normal at 78 msec. QT interval is normal at 400 msec. No Q waves. T waves are Normal. No ST changes noted. Clinical impression: Normal sinus rhythm with left ventricular hypertrophy and repolarization abnormality. Administered Medications: 13:58 Drug: Nitroglycerin Sublingual 0.4 mg Sublingual once Route: Sublingual; ko1 Disposition Summary: 08/03/23 14:02 Hospitalization Ordered Notes: Hospitalization Status: Inpatient Admission [facility] Provider: Sy Avila [facility] Location: Telemetry/MedSurg (Inpatient) [facility] Condition: Stable [facility] Problem: new [facility] Symptoms: are unchanged [facility] Bed/Room Type: Standard [facility] Room Assignment: [facility](08/03/23 19:58) Diagnosis - Chest pain, unspecified [facility] Forms: - Medication Reconciliation Form [facility] - SBAR form [facility] - Leadership Thank You Letter [facility] Signatures: Dispatcher [employer] EDMS Adalgisa Lan RN RN mw Hadash, Jennifer, FNP [place] [id number] Collette Milner RN RN ko1 Corrections: (The following items were deleted from the chart) 14:01 11:33 Associated signs and symptoms: Pertinent positives: cough, low grade fever, [facility] Pertinent negatives: abdominal pain, palpitations, shortness of breath, [facility] 14:01 11:33 Patient presents from [facility] for chest pain. The patient states [facility] that it started last night and resolved with Tylenol. EMS reports that the patient was coughing on the way to the ER. Also reported low-grade fever last night. No other symptoms at this time.. [facility] 19:58 14:02 [facility] bk
--- NOTE | 2023-08-03 14:02 | ER ---
Nurse's Notes [facility] Name: Kel Acuna Age: 82 yrs Sex: Male : 1940 Arrival Date: 08/03/2023 Time: 11:20 Bed 3 Private MD: Diagnosis: Chest pain, unspecified Presentation: 08/03 11:33 Chief complaint: EMS states: called to [facility] for pt having chest pain last ko1 night, he was given something something for indigestion, chest pain was still present this morning, they gave him 1 sl ntg , they said the cp continued, pt states its gone. Coronavirus screen: At this time, the client does not indicate any symptoms associated with coronavirus-19. Ebola Screen: No symptoms or risks identified at this time. Initial Sepsis Screen: Does the patient meet any 2 criteria? No. Patient's initial sepsis screen is negative. Does the patient have a suspected source of infection? No. Patient's initial sepsis screen is negative. Risk Assessment: Do you want to hurt yourself or someone else? Patient reports no desire to harm self or others. Onset of symptoms. Care prior to arrival: Medication(s) given: Nitroglycerin, 0.4 mg SL x 1, IV initiated. 20 GA, in the left antecubital area. Transition of care: patient was received from another setting of care (long-term care facility), [facility]. 11:33 Method Of Arrival: EMS: [facility] ko1 11:33 Acuity: LEONID 3 ko1 Triage Assessment: 11:38 General: Appears in no apparent distress. comfortable, Behavior is calm, cooperative, ko1 appropriate for age. Pain: Denies pain. Historical: - Allergies: 11:38 Aspirin; ko1 11:38 Iodine; ko1 11:38 PENICILLINS; ko1 11:38 SHELLFISH; ko1 11:38 Tramadol HCl; ko1 - PMHx: 11:38 BLIND; diabetes mellitus; Hypercholesterolemia; kidney disease; Myocardial infarction; ko1 stroke; - PSHx: 11:38 stents; ko1 - Immunization history:: Adult Immunizations up to date. - Social history:: Smoking status: Patient denies any tobacco usage or history of. Screenin:02 [facility] ED Fall Risk Assessment (Adult) History of falling in the last 3 months, ko1 including since admission No falls in past 3 months (0 pts) Confusion or Disorientation No (0 pts) Intoxicated or Sedated No (0 pts) Impaired Gait Yes (1 pt) Mobility Assist Device Used Yes (1 pt) Altered Elimination No (0 pt) Score/Fall Risk Level 0 - 2 = Low Risk Oriented to surroundings, Maintained a safe environment, Educated pt \T\ family on fall prevention, incl call for assistance when getting out of bed, Assessed \T\ reinforced patient's understanding of fall precautions, Provided non-skid footwear, Hourly rounding (assess needs \T\ fall precautionary measures) done, Used ambulatory aids as needed (educated on \T\ assisted with), Used gait belt as appropriate. Abuse screen: Denies threats or abuse. Denies injuries from another. Nutritional screening: No deficits noted. Tuberculosis screening: No symptoms or risk factors identified. Assessment: 11:35 Neuro: No deficits noted. Cardiovascular: Reports chest pain. Respiratory: No deficits ko1 noted. GI: No deficits noted. : No deficits noted. EENT: Reports blind. Derm: No deficits noted. Musculoskeletal: No deficits noted. 12:00 Reassessment: Patient appears in no apparent distress at this time. Patient and/or db family updated on plan of care and expected duration. Pain level reassessed. Patient is alert, oriented x 3, equal unlabored respirations, skin warm/dry/pink. 13:00 Reassessment: Patient appears in no apparent distress at this time. Patient and/or db family updated on plan of care and expected duration. Pain level reassessed. Patient is alert, oriented x 3, equal unlabored respirations, skin warm/dry/pink. 14:00 Reassessment: Patient appears in no apparent distress at this time. Patient and/or db family updated on plan of care and expected duration. Pain level reassessed. Patient is alert, oriented x 3, equal unlabored respirations, skin warm/dry/pink. SLEEPING. 15:00 Reassessment: Patient appears in no apparent distress at this time. Patient and/or db family updated on plan of care and expected duration. Pain level reassessed. Patient is alert, oriented x 3, equal unlabored respirations, skin warm/dry/pink. 16:00 Reassessment: Patient appears in no apparent distress at this time. Patient and/or db family updated on plan of care and expected duration. Pain level reassessed. Patient is alert, oriented x 3, equal unlabored respirations, skin warm/dry/pink. General: Appears in no apparent distress. comfortable, Behavior is calm, cooperative. 17:16 Reassessment: Patient appears in no apparent distress at this time. Patient and/or db family updated on plan of care and expected duration. Pain level reassessed. Patient is alert, oriented x 3, equal unlabored respirations, skin warm/dry/pink. General: Appears in no apparent distress. comfortable, Behavior is calm, cooperative. 20:52 Reassessment: Report called to jaziel Paredes [facility] nurse. All questions asked, answered. nw1 Vital Signs: 11:33 BP 139 / 67; Pulse 69; Resp 16; Pulse Ox 96% ; ko1 14:02 BP 108 / 80; Pulse 66; Resp 16; Pulse Ox 100% ; ko1 14:26 BP 114 / 69; Pulse 68; Resp 12; Pulse Ox 97% ; ko1 15:00 BP 133 / 75; Pulse 66; Resp 18; Pulse Ox 99% on R/A; db 16:00 BP 131 / 54; Pulse 59; Resp 18; Pulse Ox 99% on R/A; db 17:00 BP 112 / 63; Pulse 58; Resp 18; Pulse Ox 100% on R/A; db 18:19 BP 120 / 68; Pulse 57; Resp 16; Pulse Ox 100% ; iw 19:00 BP 152 / 96; Pulse 61; Resp 15; Temp 97.8(O); Pulse Ox 100% ; nw1 19:30 BP 155 / 78; Pulse 62; Resp 16; Pulse Ox 100% ; nw1 20:00 BP 160 / 89; Pulse 67; Resp 15; Pulse Ox 100% on R/A; nw1 20:30 BP 145 / 73; Pulse 72; Resp 15; Pulse Ox 100% ; nw1 ED Course: 11:32 Patient arrived in ED. ko1 11:34 Jennifer Larson FNP is PHCP. jh7 11:34 Marcelino Lazcano MD is Attending Physician. jh7 11:38 Triage completed. ko1 11:38 Arm band placed on right wrist. Patient placed in an exam room, on a stretcher, on ko1 hospital monitor, on pulse oximetry, Patient notified of wait time. 11:[address], RN is Primary Nurse. db 11:58 Initial lab(s) drawn, by me, sent to lab. Maintain EMS IV. Dressing intact. Good blood db return noted. Site clean \T\ dry. Gauge \T\ site: 20 G LAC. 12:19 XRAY Chest (1 view) In Process Unspecified. EDWY 14:02 Sy Avila is Hospitalizing Provider. [facility] 14:02 Patient has correct armband on for positive identification. Fall risk band placed. ko1 Placed in gown. Bed in low position. Call light in reach. Side rails up X2. Provided Education on: na. Client placed on continuous cardiac and pulse oximetry monitoring. NIBP monitoring applied. bus driver/monitor on. Door closed. Noise minimized. Lights dimmed. Warm blanket given. 14:02 No provider procedures requiring assistance completed. ko1 21:58 IV not discontinued due to need for IV during admission. nw1 Administered Medications: 13:58 Drug: Nitroglycerin Sublingual 0.4 mg Sublingual once Route: Sublingual; ko1 Medication: 14:02 VIS not applicable for this client. ko1 Outcome: 14:02 Decision to Hospitalize by Provider. [facility] 21:57 Admitted to Tele accompanied by nurse, via stretcher, Report called to Room 409 nurse nw 21:57 Condition: stable 21:57 Discharge instructions given to patient, Instructed on the need for admit, Demonstrated nw1 understanding of need for admit 21:58 Patient left the ED. nw1 Signatures: Dispatcher [employer] EDWY Nya Banegas, RN Jennifer Barron FNP FNP [facility] Collette Milner, RN RN koUyen Sue, RN RN Sachi Aguirre, STEFAN RN nw1
[2023-08-03] MEDS ORDERED: NITROGLYCERIN 0.4 MG/TAB SL ONE (14:12)
[2023-08-03] MEDS ORDERED: ACETAMINOPHEN 325 MG TABLET PO PRN (14:45)
[2023-08-03] MEDS ORDERED: ACETAMINOPHEN 500 MG TAB PO PRN (14:45)
[2023-08-03] MEDS ORDERED: GLUCAGON 1 MG/VIAL IM PRN (14:57)
[2023-08-03] MEDS ORDERED: NA CHLORIDE 0.9% 1,000 ML IV SCH (15:00)
--- NOTE | 2023-08-03 15:07 | P.HP ---
Certification for Inpatient Patient admitted to: Observation With expected LOS: >2 Midnights Patient will require the following post-hospital care: None Practitioner: I am a practitioner with admitting privileges, knowledge of patient current condition, hospital course, and medical plan of care. Services: Services provided to patient in accordance with Admission requirements found in Title 42 Section 412.3 of the Code of Federal Regulations Patient History Date of Service: 08/03/23 Reason for admission: chest pain r/o FL History of Present Illness: Kel Acuna is an 89-year-old male with past medical history of blind, diabetes mellitus, hyper cholesterolemia, kidney disease, myocardial infarction (Stents), stroke who presents to the ED with complaints of dull chest pain when taking a deep breath which started Thursday. Kel, a resident at [facility], reports being given Tylenol for a fever last night (08/02). EMS reportedly administered nitroglycerin x1 with resolution of chest pain. Upon evaluation, Chadwick reports left flank pain when taking a deep breath, pain is evident on palpation. Initial vitals BP 139/67, heart rate 69, respirations 16, pulse ox 96% on room air, no temperature recorded. EKG with heart rate 69, regular rhythm, QT intervals normal at 400, T waves are normal, normal sinus rhythm with left ventricular hypertrophy and repolarization abnormality. Chest x-ray shows lungs clear of acute infiltrates, heart is normal size, postsurgical changes involve the chest. Kel reports a bypass surgery in the p ast. Of note Kel is allergic to aspirin. Kel will be admitted to hospitalist service for further evaluation and treatment of chest pain rule out [place]. Will obtain a UA for evaluation of a left flank pain. Allergies iodine Allergy (Verified 07/11/22 14:43) Hives aspirin Adverse Reaction (Verified 07/11/22 14:43) Hives/Rash Penicillins Adverse Reaction (Verified 07/11/22 14:43) Hives Home Medications: Atorvastatin Calcium [Lipitor] 80 mg PO DAILY 6PM 08/22/21 Citalopram Hydrobromide [Celexa] 40 mg PO DAILY 08/22/21 Famotidine [Pepcid*] 20 mg PO BID 08/22/21 Fluticasone Furoate [Flonase Sensimist] 2 spray PETERSON DAILY 08/22/21 Loratadine [Claritin*] 10 mg PO DAILY 08/22/21 Metformin HCl [Glucophage*] 500 mg PO BID 08/22/21 Nitroglycerin [Nitrostat*] 0.4 mg SL Q5MX3, Q15MX1, Q30M PRN 08/22/21 Prednisolone Acetate/Pf [Prednisolone Acet 1% Eye Drop] 1 drop EACH EYE BID 08/22/21 Tamsulosin HCl [Flomax] 0.4 mg PO DAILY 08/22/21 Isosorbide Mononitrate [Isosorbide Mononitrate ER] 30 mg PO DAILY #30 tab.er.24h 08/23/21 Clopidogrel Bisulfate [Plavix*] 75 mg PO DAILY 90 Days #90 tab 04/19/22 Smz./Tmp. [Bactrim Ds 800 MG/160 MG] 1 tab PO BID 3 Days #6 tab 04/19/22 carvediloL [Coreg*] 3.125 mg PO BID 6AM 6PM 30 Days #60 tab 04/19/22 - Past Medical/Surgical History Diabetic: Yes -: Diabetes mellitus type 2 -: Hypertension -: Hyperlipidemia -: BPH -: CAD -: Seasonal allergies -: MELANIE -: blind -: a -: Prior cardiac stents x3 Psychosocial/ Personal History: Lives at skilled nursing. Recently moved to skilled nursing. Was in [facility] prior to this. - Social History Alcohol use: No CD- Drugs: No Caffeine use: No Review of Systems General: Fever, Chills, Weakness, Malaise, Other (Headache) Eyes: Other (blind) ENT: Unremarkable Respiratory: Cough, Shortness of Breath, Pleuritic Pain Cardiovascular: Chest Pain, Orthopnea, Paroxysmal Noc. Dyspnea Gastrointestinal: Distention (obese) Musculoskeletal: Back Pain (left flank) Integumentary: Unremarkable Neurological: Other (headache) Physical Examination - Physical Exam General: Alert, In no apparent distress, Oriented x3 HEENT: Atraumatic, Normocephalic Neck: Supple, 2+ carotid pulse no bruit, JVD not distended Respiratory: Clear to auscultation bilaterally, Normal air movement Cardiovascular: No edema, Normal pulses, Regular rate/rhythm, Normal S1 S2 Capillary refill: <2 Seconds Gastrointestinal: Normal bowel sounds, Soft and benign, Hyperactive Musculoskeletal: No clubbing, No swelling, No contractures Integumentary: No rashes, No breakdown, No significant lesion Neurological: Normal speech, Normal strength at 5/5 x4 extr, Normal tone - Studies Laboratory Data (last 24 hrs) 08/03/23 08/03/23 08/03/23 11:58 11:58 11:58 WBC 4.70 Hgb 14.1 Hct 41.3 Plt Count 151 L PT 12.1 INR 1.10 Sodium 140 Potassium 3.5 BUN 15 Creatinine 1.16 Glucose 117 H Magnesium 2.1 Total Bilirubin 0.5 AST 28 ALT 18 Alkaline Phosphatase 102 Assessment and Plan - Plan Assessment and Plan Chest Pain, concern for Acute Coronary Syndrome (Non-ST Segment Elevation Myocardial Infarction) - Evaluation thus far: - h/o bypass, multiple MIs and stent placements - EKG: No obvious ST segment changes, trend - Serial troponin 13.3/13.9 - Ordered transthoracic echocardiogram - chest x-ray -The lungs appear clear of acute infiltrate. The heart is normal size - Ordered d-dimer - Management plan: - Consult Cardiology - recommendations appreciated - aspirin 324 (patient allergic) - Symptom control with PRN acetaminophen, nitroglycerin, morphine - If CAD is confirmed, plan to start beta-sathish, MILAGROS-inhibitor/ARB, statin with 24 hours Left flank pain Febrile (patient reported) -UA -CT abd/pelvis if appropriate -Tylenol for pain and fever Acute on chronic kidney failure -gentle IVF -BUN/creatinine 15/1.16, GFR 64 -consult nephrology h/o NIDDM -accucheck with SSI -Serum glucose 117 Dvt ppx: heparin TID full code LOS observation 2 days Discharge Plan: Retirement ([facility] nursing resident) - Advance Directives Does patient have a Living Will: No Does patient have a Durable POA for Healthcare: Yes Time Spent Managing Pts Care (In Minutes): 55
[2023-08-03] MEDS ORDERED: D10W 250 ML BAG IV PRN (15:20)
[2023-08-03] MEDS: INSULIN REGULAR (HUMAN) 100 UNIT/ML SQ SCH ×2 (16:30→21:00)
[2023-08-03] MEDS: HEPARIN 5000 UNIT/ML 1 ML VIAL SQ SCH (17:00)
[2023-08-03] MEDS ORDERED: NA CHLORIDE 0.9% 1,000 ML ONE (19:19)
[2023-08-03] MEDS ORDERED: HEPARIN 5000 UNIT/ML 1 ML VIAL ONE (19:19)
[2023-08-03] MEDS: CLOPIDOGREL 75 MG TABLET PO SCH (19:30)
[2023-08-04] MEDS: HEPARIN 5000 UNIT/ML 1 ML VIAL SQ SCH ×2 (00:56→09:39)
[2023-08-04 06:23] LABS: Absolute Lymphocytes (CBC) 0.8 K/uL (0.7-4.9); Hematocrit 41.9 % (39.6-49.0); Lymphocytes % 18.6 % (15.3-44.8); MCV 93.7 fL (80-100); Platelets 138 thou/uL (152-406); RBC Red Blood Cell Count 4.47 M/uL (4.33-5.43)
[2023-08-04 06:38] LABS: Magnesium 2.1 mg/dL (1.6-2.4); Phosphorus 3.6 mg/dL (2.5-4.9); Potassium 4.1 mEq/L (3.5-5.1)
[2023-08-04] MEDS: INSULIN REGULAR (HUMAN) 100 UNIT/ML SQ SCH ×2 (07:30→11:30)
--- NOTE | 2023-08-04 07:49 | P.PN ---
Date of Service: 08/04/23 Subjective: chest pain continues; worsened on palpation no acute events overnight Breathing okay on room air afebrile ROS: 10 point ROS as noted above, otherwise negative Physical Exam: GEN: Alert, oriented, NAD HEENT: Normal conjunctiva, sclera anicteric CV: Regular rate and rhythm, no edema Pulm: Nonlabored respirations on room air ABD: Soft, nontender, nondistended Neuro: Normal speech, normal affect, legally blind vitals reviewed Problem List: Chest Pain h/o bypass, multiple MIs and stent placements x3 Left flank pain RITU on CKD NIDDM2 Hypertension Hyperlipidemia BPH h/o MELANIE Legally Blind Chest Pain h/o bypass, multiple MIs and stent placements x3 troponins negative x4; monitor on tele CXR negative for any acute findings EKG without STEMI criteria d-dimer: 954 cardiology consulted echo ordered for further eval Per cath report (07/14/23): noted severe mid and proximal LAD stenosis that is heavily calcified Dr. Streeter was previously planning on PCI with shockwave of the proximal mid LAD at [place] per cath report from 07/14 Left flank pain patient reports left flank pain +given tylenol at [facility] for reported fever (08/02) CT abd/pelvis if no improvement Tylenol for pain and fever UA ordered RITU on CKD continue gentle IV fluids NIDDM2 accucheck with SSI Hypertension Hyperlipidemia BPH h/o MELANIE Legally Blind Confirm home medications, restart as appropriate VTE: heparin sq Code: Full Dispo: Home
[2023-08-04] MEDS ORDERED: carvediloL 3.125 MG TAB PO SCH (08:00)
[2023-08-04] MEDS ORDERED: PNEUMOCOCCAL VACCINE 0.5 ML IMVAC ONE (08:00)
[2023-08-04] MEDS ORDERED: TAMSULOSIN 0.4 MG SR CAP PO SCH (09:00)
[2023-08-04] MEDS ORDERED: ISOSORBIDE MONO SR 30 MG TAB PO SCH (09:00)
[2023-08-04] MEDS ORDERED: CLOPIDOGREL 75 MG TABLET PO SCH (09:00)
[2023-08-04] MEDS: CLOPIDOGREL 75 MG TABLET PO SCH (09:39)
--- NOTE | 2023-08-04 11:57 | EKG ---
Test Date: 2023-08-03 Test Time: 11:37:58 Special Weapons And Tactics Officer: JAIR MEASUREMENT RESULTS: Intervals: Rate: 69 RI: 158 QRSD: 78 QT: 400 QTc: 428 [place]: P: 55 RI: 158 QRS: -18 T: 183 INTERPRETIVE STATEMENTS: Normal sinus rhythm Left ventricular hypertrophy with repolarization abnormality Abnormal ECG Compared to ECG 08/20/2022 15:24:35 Left ventricular hypertrophy now present Early repolarization now present Right superior axis no longer present T-wave abnormality no longer present Prolonged QT interval no longer present Electronically Signed On 08-04-23 11:54:23 CDT by Viral Streeter
--- NOTE | 2023-08-04 12:59 | P.DS ---
Admission Date: 08/03/23 Discharge Date: 08/04/23 Disposition: TRANSFER TO [facility] Discharge Condition: GOOD Reason for Admission: chest pain r/o ND Consultations: Cardiology - Dr. Streeter Brief History of Present Illness: 82 yo M, PMH: blind, diabetes mellitus, hyper cholesterolemia, kidney disease, myocardial infarction (Stents), stroke Patient presents to the ED with complaints of dull chest pain when taking a deep breath which started Thursday. Kel, a resident at [facility], reports being given Tylenol for a fever last night (08/02). EMS reportedly administered nitroglycerin x1 with resolution of chest pain. Upon evaluation, Chadwick reports left flank pain when taking a deep breath, pain is evident on palpation. Initial vitals BP 139/67, heart rate 69, respirations 16, pulse ox 96% on room air, no temperature recorded. EKG with heart rate 69, regular rhythm, QT intervals normal at 400, T waves are normal, normal sinus rhythm with left ventricular hypertrophy and repolarization abnormality. Chest x-ray shows lungs clear of acute infiltrates, heart is normal size, postsurgical changes involve the chest. Kel reports a bypass surgery in the past. Hospital Course: Problem List: Chest Pain h/o bypass, multiple MIs and stent placements x3 Left flank pain RITU on CKD NIDDM2 Hypertension Hyperlipidemia BPH h/o MELANIE Legally Blind Patient presented with chest pain. Troponins were negative. CXR negative for any acute findings. EKG without STEMI criteria. Chest pain was reproducible with palpation. Patient reported no significant change / worsening recently. Has been ongoing since surgery a year ago. A d- dimer was obtained and mildly elevated. He denied any shortness of breath at rest, no new dyspnea on exertion, and vitals were stable/normal. Cardiology was consulted. Dr. Streeter recommends follow up for outpatient stress testing in near future. No change in meds. Follow up: PCP 3-5 days Cardiology 1-2 weeks. Physical Exam: GEN: Alert, oriented, NAD HEENT: Normal conjunctiva, sclera anicteric CV: Regular rate and rhythm, no edema Pulm: Nonlabored respirations on room air ABD: Soft, nontender, nondistended Neuro: Normal speech, normal affect, legally blind Vital Signs/Physical Exam: Temp Pulse Resp BP Pulse Ox 97.9 F 76 17 96/49 L 96 08/04/23 11:54 08/04/23 11:54 08/04/23 11:54 08/04/23 11:54 08/04/23 11:54 Laboratory Data at Discharge: WBC 4.40 thou/uL (4.3-10.9) 08/04/23 06:07 Hgb 14.7 g/dL (13.6-17.9) 08/04/23 06:07 Hct 41.9 % (39.6-49.0) 08/04/23 06:07 Plt Count 138 thou/uL (152-406) L 08/04/23 06:07 PT 12.1 SECONDS (9.5-12.5) 08/03/23 11:58 INR 1.10 08/03/23 11:58 Sodium 138 mEq/L (136-145) 08/04/23 06:07 Potassium 4.1 mEq/L (3.5-5.1) D 08/04/23 06:07 BUN 16 mg/dL (7-18) 08/04/23 06:07 Creatinine 1.09 mg/dL (0.70-1.30) 08/04/23 06:07 Glucose 86 mg/dL (74-106) 08/04/23 06:07 Phosphorus 3.6 mg/dL (2.5-4.9) 08/04/23 06:07 Magnesium 2.1 mg/dL (1.6-2.4) 08/04/23 06:07 Total Bilirubin 0.5 mg/dL (0.2-1.0) 08/03/23 11:58 AST 28 U/L (15-37) 08/03/23 11:58 ALT 18 U/L (16-61) 08/03/23 11:58 Alkaline Phosphatase 102 U/L (45-117) 08/03/23 11:58 Home Medications: Atorvastatin Calcium [Lipitor] 80 mg PO DAILY 6PM 08/22/21 Citalopram Hydrobromide [Celexa] 40 mg PO DAILY 08/22/21 Famotidine [Pepcid*] 20 mg PO BID 08/22/21 Fluticasone Furoate [Flonase Sensimist] 2 spray PTEERSON DAILY 08/22/21 Loratadine [Claritin*] 10 mg PO DAILY 08/22/21 Metformin HCl [Glucophage*] 500 mg PO BID 08/22/21 Nitroglycerin [Nitrostat*] 0.4 mg SL Q5MX3, Q15MX1, Q30M PRN 08/22/21 Prednisolone Acetate/Pf [Prednisolone Acet 1% Eye Drop] 1 drop EACH EYE BID 08/22/21 Tamsulosin HCl [Flomax] 0.4 mg PO DAILY 08/22/21 Isosorbide Mononitrate [Isosorbide Mononitrate ER] 30 mg PO DAILY #30 tab.er.24h 08/23/21 Clopidogrel Bisulfate [Plavix*] 75 mg PO DAILY 90 Days #90 tab 04/19/22 carvediloL [Coreg*] 3.125 mg PO BID 6AM 6PM 30 Days #60 tab 04/19/22 Physician Discharge Instructions: Patient presented with chest pain. Troponins were negative. CXR negative for any acute findings. EKG without STEMI criteria. Chest pain was reproducible with palpation. Patient reported no significant change / worsening recently. Has been ongoing since surgery a year ago. A d- dimer was obtained and mildly elevated. He denied any shortness of breath at rest, no new dyspnea on exertion, and vitals were stable/normal. Cardiology was consulted. Dr. Streeter recommends follow up for outpatient stress testing in near future. No change in meds. Follow up: PCP 3-5 days Cardiology 1-2 weeks. Followup: NONE,NONE [Primary Care Provider] - Time spent managing pt's care (in minutes): 45
--- NOTE | 2023-08-04 13:40 | CON ---
Date of Consultation: 08/04/2023 Reason For Consultation: Chest pain. History Of Present Illness: 82-year-old male with history of diabetes, coronary artery disease, dysl ipidemia, legally blind, presented to the emergency room with chest pain, it is chest wall muscles li grady, with the movements of the chest wall with his pain. He had a bypass surgery within the past ye ar. Past Medical History: As outlined above in the HPI. Medications: Refer to reconciliation sheet for detailed list. Allergies: IODINE, PENICILLIN, AND ASPIRIN. Family History: No premature coronary artery disease or cancer. Social History: Does not smoke or drink. Does not use any drugs. Review of Systems: All systems reviewed and they were negative except as mentioned in the HPI. Physical Examination: Vital Signs: Reviewed. Head and Neck: Pupils are equal, reactive to light. Lungs: Clear to auscultation bilaterally. No rhonchi, wheezing, or crackles. No accessory muscle u se. Heart: Regular rate and rhythm. No extra sounds. Abdomen: Soft, nontender. Bowel sounds positive. No organomegaly. No masses or hernia. No rigidi ty or rebound. Extremities: No edema, clubbing, cyanosis. Intact pulses. Skin: No rash or nodule. Neurologic: Alert, awake, oriented x3. No acute focal deficits appreciated. Investigations: Cardiac enzymes are negative. BUN 16, creatinine , hemoglobin 14.7. Assessment And Recommendations: 1.Chest pain, atypical with cardiac enzymes being negative. Patient can be released. I will follow up with him as an outpatient. Obtain stress test as he is known to have history of coronary artery disease. 2.Dyslipidemia. Continue Lipitor. 3.Hypertension. Blood pressure is controlled. Cardiology will sign off. This patient can be released from cardiac standpoint. SR/VARINDER Voice ID: [id number] Report ID: [id number]
[2023-08-04] MEDS ORDERED: ATORVASTATIN 80 MG TAB PO SCH (18:00)
--- NOTE | 2023-08-05 09:00 | ECHO ---
HEIGHT: ft in WEIGHT: lb oz DATE OF STUDY: 08/04/[address]: Emily Anderson NP 2-DIMENSIONAL: YES M.MODE: YES DOPPLER: YES COLOR FLOW: YES TDS: YES PORTABLE: YES DEFINITY: BUBBLE STUDY: DIAGNOSIS: CHEST PAIN/ HEART HISTORY CARDIAC HISTORY: CATHERIZATION: SURGERY: PROSTHETIC VALVE: PACEMAKER: MEASUREMENTS (cm) DIASTOLIC (NORMALS) SYSTOLIC (NORMALS) IVSd 0.9 (0.6-1.2) LA Diam (1.9-4.0) LVEF 77% LVIDd 2.5 (3.5-5.7) LVIDs 1.4 (2.0-3.5) %FS 43% LVPWd 0.9 (0.6-1.2) Ao Diam 3.1 (2.0-3.7) 2 DIMENSIONAL ASSESSMENT: RIGHT ATRIUM: NORMAL LEFT ATRIUM: NORMAL RIGHT VENTRICLE: NORMAL LEFT VENTRICLE: NORMAL TRICUSPID VALVE: MILD TRICUSPID REGURGITATION MITRAL VALVE: NORMAL PULMONIC VALVE: NORMAL AORTIC VALVE: NORMAL PERICARDIAL EFFUSION: NONE AORTIC ROOT: NORMAL LEFT VENTRICULAR WALL MOTION: NORMAL DOPPLER/COLOR FLOW: MILD TRICUSPID REGURGITATION COMMENTS: 1. NORMAL LEFT VENTRICULAR EJECTION FRACTION 55-60% 2. GRADE I DIASTOLIC DYSFUNCTION 3. MILD TRICUSPID REGURGITATION TECHNOLOGIST: TON AGARWAL
== END 2023-08-04 18:19 ==
LOC: ER 11:20 → ERHOLD 14:47 → 4TH 22:30
PROVIDERS: ADMIT Internal Medicine; ATTEND Hospitalist
DX: R07.89 Other chest pain (principal); N17.9 Acute kidney failure, unspecified; I25.10 Atherosclerotic heart disease of native coronary artery without angina pectoris; E11.22 Type 2 diabetes mellitus with diabetic chronic kidney disease; I12.9 Hypertensive chronic kidney disease with stage 1 through stage 4 chronic kidney disease, or unspecified chronic kidney disease; N18.9 Chronic kidney disease, unspecified; E78.00 Pure hypercholesterolemia, unspecified; I25.2 Old myocardial infarction; H54.7 Unspecified visual loss; E78.5 Hyperlipidemia, unspecified; R10.9 Unspecified abdominal pain; N40.0 Benign prostatic hyperplasia without lower urinary tract symptoms; G47.33 Obstructive sleep apnea (adult) (pediatric); Z88.0 Allergy status to penicillin; Z91.09 Other allergy status, other than to drugs and biological substances; Z88.6 Allergy status to analgesic agent; Z95.5 Presence of coronary angioplasty implant and graft; Z86.73 Personal history of transient ischemic attack (TIA), and cerebral infarction without residual deficits; Z91.013 Allergy to seafood; Z20.822 Contact with and (suspected) exposure to COVID-19; Z23 Encounter for immunization
CPT/HCPCS: 93005; 93306; 85025 ×2; 80048 ×2; 36415; 83735 ×2; 84100; 85610; 82947 ×4; 85379; 80076; 84484 ×4; 83880; 71045; 99285; 87811; J1644 ×3; J7030 ×2; G0378

== ENCOUNTER 2024-05-18 08:30 | Observation (INO) | payer OTHER ==
[2024-05-18] MEDS ORDERED: NA CHLORIDE 0.9% 250 ML ONE ×2 (08:47→12:14)
[2024-05-18 09:07] LABS: Absolute Eosinophils 0.1 K/uL (0-0.5); Absolute Lymphocytes (CBC) 0.7 K/uL (0.7-4.9); Absolute Monocytes 0.6 K/uL (0.1-1.3); Absolute Neutrophil 2.6 K/uL (1.8-8.0); Basophils % 0.7 % (0-1.3); Eosinophils % 3.7 % (0-4.4); Hematocrit 49.7 % (39.6-49.0); Hemoglobin 16.8 g/dL (13.6-17.9); Lymphocytes % 16.4 % (15.3-44.8); MCH 32.8 pg (27.0-35.0); MCHC 33.8 g/dL (32.0-36.0); MCV 97.2 fL (80-100); MPV 8.2 fL (7.6-11.3); Monocytes % 14.1 % (3.3-12.3); Neutrophils % 65.1 % (41.7-73.7); Nucleated Red Blood Cells % 0.1 % (0-0); Platelets 151 thou/uL (152-406); RBC Red Blood Cell Count 5.11 M/uL (4.33-5.43); Red Cell Distribution Width 14.1 % (12.1-15.2)
--- NOTE | 2024-05-18 09:12 | RAD REPORT ---
EXAM DESCRIPTION: CT - [id number] - 05/18/2024 9:00 am CLINICAL HISTORY: Trauma, head and neck injury. fall, neck and head pain COMPARISON: No comparisons TECHNIQUE: Axial 5 mm thick images of the head were obtained. Axial 2 mm thick images of the cervical spine were obtained with sagittal and coronal reconstruction images generated and reviewed. All CT scans are performed using dose optimization technique as appropriate and may include automated exposure control or mA/KV adjustment according to patient size. FINDINGS: CT HEAD WITHOUT CONTRAST: No acute hemorrhage, hydrocephalus or extra-axial collection is identified.Mild generalized brain atr ophy is present with mild periventricular and deep white matter chronic microvascular ischemic change s.No areas of brain edema or midline shift. The paranasal sinuses and mastoids are clear except for partial opacification right frontal sinus.The calvarium is intact. CT CERVICAL SPINE WITHOUT CONTRAST: No fracture or subluxation.2 mm degenerative anterolisthesis of C3 on 4 is present. Mild lower cervic al degenerative changes.No prevertebral soft tissues swelling is identified. Mild interstitial opacities in the right lung visualized IMPRESSION: No acute intracranial or cervical spine findings.
[2024-05-18 09:22] LABS: SARS-CoV-2 Antigen CONTROL BLUE LINE VIS/BG OK; SARS-CoV-2 Antigen Rapid Res Negative (Negative)
--- NOTE | 2024-05-18 09:22 | RAD REPORT ---
EXAM DESCRIPTION: CT - Chest Abd Pelvis Wo Con - 05/18/2024 9:08 am CLINICAL HISTORY: Chest and abdomen pain. fall,lymphnodes COMPARISON: Head C Spine Mpr Wo Con dated 05/18/2024 TECHNIQUE: Limited noncontrast study was performed. All CT scans are performed using dose optimization technique as appropriate and may include automated exposure control or mA/KV adjustment according to patient size. FINDINGS: Interstitial thickening in subtle oblong opacity in the posterior right upper lobe noted, nonspecific.No pleural or pericardial effusion.Mild lymphadenopathy is present in the mediastinum, la rgest measuring 17 mm in the pretracheal space. Bilateral mild hilar adenopathy also suspected. Sub- carinal adenopathy present measuring 3 cm in maximum size. Several mildly enlarged pericardial lymph nodes are present. Small hiatal hernia. The liver, spleen, pancreas, adrenal glands and kidneys are within normal limits. No bowel obstruction, free air, free fluid or abscess. Normal appendix. Sigmoid diverticulosis coli w ithout diverticulitis. Mildly prominent lymph nodes are seen upper abdomen. No worrisome osseous finding. Mild lower lumbar degenerative changes. IMPRESSION: No acute abnormality seen. Mild nonspecific lymphadenopathy in the chest and abdomen as detailed. Follow-up imaging would be rec ommended in 3, 6 months to monitor. Interstitial thickening in both upper lobes, greater on the right.
[2024-05-18 09:23] LABS: Anion Gap 11.4 mEq/L (5.0-15.0)
[2024-05-18 09:33] LABS: Potassium 4.4 mEq/L (3.5-5.1)
--- NOTE | 2024-05-18 09:39 | RAD REPORT ---
EXAM DESCRIPTION: RAD - Knee Right 3 View - 05/18/2024 9:23 am CLINICAL HISTORY: FALL INJURY COMPARISON: No comparisons FINDINGS: Mild medial compartment space narrowing is present. No acute fracture or dislocation.
--- NOTE | 2024-05-18 09:39 | RAD REPORT ---
EXAM DESCRIPTION: RAD - Chest Single View - 05/18/2024 9:23 am CLINICAL HISTORY: COUGH Chest pain. COMPARISON: Chest Single View dated 08/03/2023; Chest Single View dated 08/20/2022; Chest Single View dated 04/17/2022; Chest Single View dated 08/22/2021 FINDINGS: Portable technique limits examination quality. The lungs are grossly clear. The heart is normal in size. No displaced fractures.Sternotomy wires. IMPRESSION: No acute intrathoracic process suspected.
--- NOTE | 2024-05-18 09:40 | RAD REPORT ---
EXAM DESCRIPTION: RAD - Knee Left 3 View - 05/18/2024 9:23 am CLINICAL HISTORY: PAIN COMPARISON: No comparisons FINDINGS: Mild tricompartmental osteoarthritis is present. Mild chondrocalcinosis of the menisci. No acute fracture or dislocation seen. No intraarticular joint effusion.
[2024-05-18 09:57] LABS: Calcium Oxalate Crystals- Ur Few /HPF (None Seen); Specific Gravity 1.022 (1.005-1.030); Sqamous Epithelial <5 /HPF (None Seen); Urine Bacteria None Seen /HPF (<20); Urine Bilirubin NEGATIVE (Negative); Urine Blood Negative (Negative); Urine Clarity Extremely Turbid (Clear); Urine Color Yellow (Yellow); Urine Culture Reflex Order NOT NEEDED; Urine Glucose NEGATIVE (Negative); Urine Ketones NEGATIVE (Negative); Urine Microscopic Reflex YN ORDER UMIC; Urine Mucus Slight /HPF (None Seen); Urine Nitrite NEGATIVE (Negative); Urine Protein TRACE (Negative); Urine Urobilinogen 1+ (Normal); Urine WBC <5 /HPF (<5); Urine pH 5.5 (5.0-7.0)
--- NOTE | 2024-05-18 11:18 | RAD REPORT ---
EXAM DESCRIPTION: RAD - Hip Left 2 View - 05/18/2024 11:09 am CLINICAL HISTORY: PAIN COMPARISON: No comparisons FINDINGS: Mild osteoarthritis affects the left hip. The bones are moderately demineralized. No fract ure, dislocation or AVN.
--- NOTE | 2024-05-18 11:43 | ER ---
Nurse's Notes [facility] Name: Kel Acuna Age: 83 yrs Sex: Male : 1940 Arrival Date: 05/18/2024 Time: 08:30 Bed 3 Private MD: Diagnosis: Fall on same level, unspecified;Cough;Dyspnea, unspecified Presentation: 05/18 08:32 Chief complaint: EMS states: toned out to [facility] for fall. Staff reports patient ld1 falling and hitting back of head and c/o pain to left knee. Negative LOC, Pt is on blood thinners. Coronavirus screen: At this time, the client does not indicate any symptoms associated with coronavirus-19. Ebola Screen: No symptoms or risks identified at this time. Initial Sepsis Screen: Does the patient meet any 2 criteria? No. Patient's initial sepsis screen is negative. Does the patient have a suspected source of infection? No. Patient's initial sepsis screen is negative. Risk Assessment: Do you want to hurt yourself or someone else? Patient reports no desire to harm self or others. Onset of symptoms was May 18, 2024. 08:32 Method Of Arrival: EMS: [facility] ld1 08:32 Acuity: LEONID 3 ld1 Triage Assessment: 08:38 General: Appears in no apparent distress. comfortable, Behavior is calm, cooperative, ld1 appropriate for age. Pain: Complains of pain in left leg Pain does not radiate. Pain currently is 6 out of 10 on a pain scale. Quality of pain is described as throbbing, Pain began suddenly, Is continuous. EENT: No signs and/or symptoms were reported regarding the EENT system. Neuro: Level of Consciousness is awake, alert, obeys commands, Oriented to person, place, time, situation, Appropriate for age. Cardiovascular: Capillary refill < 3 seconds Patient's skin is warm and dry. Rhythm is sinus rhythm. Respiratory: Airway is patent Respiratory effort is even, unlabored. GI: Abdomen is round non-distended. : No signs and/or symptoms were reported regarding the genitourinary system. Derm: No signs and/or symptoms reported regarding the dermatologic system. Musculoskeletal: No signs and/or symptoms reported regarding the musculoskeletal system. Historical: - Allergies: 08:38 Aspirin; ld1 08:38 Iodine; ld1 08:38 PENICILLINS; ld1 08:38 SHELLFISH; ld1 08:38 Tramadol HCl; ld1 - PMHx: 08:38 BLIND; diabetes mellitus; Hypercholesterolemia; kidney disease; Myocardial infarction; ld1 stroke; - PSHx: 08:38 stents; ld1 - Immunization history:: Adult Immunizations up to date. - Infectious Disease History:: Denies. - Social history:: Smoking status: Patient denies any tobacco usage or history of. - Family history:: not pertinent. - Hospitalizations: : No recent hospitalization is reported. Screenin:39 [facility] ED Fall Risk Assessment (Adult) History of falling in the last 3 months, ld1 including since admission Yes- single mechanical fall (1 pt) Confusion or Disorientation No (0 pts) Intoxicated or Sedated No (0 pts) Impaired Gait No (0 pts) Mobility Assist Device Used Yes (1 pt) Altered Elimination No (0 pt) Score/Fall Risk Level 0 - 2 = Low Risk Oriented to surroundings, Maintained a safe environment, Educated pt \T\ family on fall prevention, incl call for assistance when getting out of bed, Assessed \T\ reinforced patient's understanding of fall precautions, Provided non-skid footwear, Hourly rounding (assess needs \T\ fall precautionary measures) done, Used ambulatory aids as needed (educated on \T\ assisted with), Used gait belt as appropriate. Abuse screen: Denies threats or abuse. Denies injuries from another. Nutritional screening: No deficits noted. Tuberculosis screening: No symptoms or risk factors identified. Assessment: 08:39 Reassessment: See triage assessment. ld1 09:43 Reassessment: Patient appears in no apparent distress at this time. No changes from ld1 previously documented assessment. Patient and/or family updated on plan of care and expected duration. Pain level reassessed. Patient is alert, oriented x 3, equal unlabored respirations, skin warm/dry/pink. 10:29 Reassessment: Patient appears in no apparent distress at this time. No changes from ld1 previously documented assessment. Patient and/or family updated on plan of care and expected duration. Pain level reassessed. 11:30 Reassessment: Patient appears in no apparent distress at this time. No changes from ld1 previously documented assessment. 12:56 Reassessment: Patient appears in no apparent distress at this time. No changes from ld1 previously documented assessment. Patient and/or family updated on plan of care and expected duration. Pain level reassessed. Vital Signs: 08:32 BP 142 / 81; Pulse 70; Resp 14; Temp 97.5(TE); Pulse Ox 100% on R/A; Weight 60.78 kg; ld1 Height 5 ft. 4 in. ; Pain 6/10; 09:43 BP 151 / 71; Pulse 67; Resp 15 S; Pulse Ox 99% on R/A; ld1 10:29 BP 129 / 85; Pulse 77; Resp 18; Pulse Ox 97% on R/A; ld1 12:56 BP 115 / 74; Pulse 71; Resp 18; Pulse Ox 98% on R/A; ld1 13:45 BP 120 / 72; Pulse 67; Resp 18; Pulse Ox 100% on R/A; ar6 08:32 Body Mass Index 23.00 (60.78 kg, 162.56 cm) ld1 08:32 Pain Scale: Adult ld1 ED Course: 08:31 Patient arrived in ED. ld1 08:31 Marcelino Lazcano MD is Attending Physician. rn 08:38 Triage completed. ld1 08:38 Arm band placed on right wrist. ld1 08:39 Patient has correct armband on for positive identification. Placed in gown. Bed in low ld1 position. Call light in reach. Side rails up X2. territory account representative on. Pulse ox on. NIBP on. Door closed. Noise minimized. Warm blanket given. 08:39 No provider procedures requiring assistance completed. ld1 08:41 Philomena Bhagat, RN is Primary Nurse. ld1 09:00 Inserted saline lock: 22 gauge in right forearm, using aseptic technique. Blood kc6 collected. Flushed with 10 mL NS. 09:02 CT Head C Spine In Process Unspecified. EDMS 09:09 Chest Abd Pelvis Wo Con In Process Unspecified. EDMS 09:25 XRAY Knee LEFT 3 view In Process Unspecified. EDMS 09:25 XRAY Chest (1 view) In Process Unspecified. EDMS 09:25 Knee Right 3 View In Process Unspecified. EDMS 11:11 XRAY Hip LEFT 2 view In Process Unspecified. EDMS 11:42 Sy Avila is Hospitalizing Provider. rn 12:43 IV discontinued, intact, bleeding controlled, No redness/swelling at site. Pressure kc6 dressing applied. Inserted saline lock: 22 gauge in left forearm, using aseptic technique. Flushed with 10 mL NS. Administered Medications: 09:01 Drug: NS 0.9% IV 250 ml IV at bolus once Route: IV; Rate: bolus; Site: right forearm; kc6 11:00 Follow up: Response: No adverse reaction; IV Status: Completed infusion; IV Intake: kc6 250ml 12:43 Drug: Zithromax IVPB 500 mg IVPB once over 1 hrs; mix in 250 mL NS Route: IVPB; Infused kc6 Over: 1 hrs; Site: left forearm; 13:50 Follow up: Response: No adverse reaction ar6 Medication: 15:52 VIS not applicable for this client. kc6 Intake: 11:00 IV: 250ml; Total: 250ml. kc6 Outcome: 11:43 Decision to Hospitalize by Provider. rn 15:52 Admitted to Med/surg accompanied by tech, via stretcher, with chart, kc 15:52 Condition: good 15:52 Instructed on the need for admit, 15:52 Patient left the ED. kc6 Signatures: Dispatcher [employer] EDMarcelino Higgins MD MD rn Sims, Lauren, RN RN [email or web address] Makayla Martin RN RN [email or web address] Amie Batista RN RN [email or web address]
--- NOTE | 2024-05-18 11:44 | EDPHYS ---
Physician Documentation [facility] Name: Kel Acuna Age: 83 yrs Sex: Male : 1940 Arrival Date: 05/18/2024 Time: 08:30 Bed 3 Private MD: ED Physician Marcelino Lazcano HPI: 05/18 10:04 This 83 yrs old Male presents to ER via EMS with complaints of Fall Injury, rn Knee Pain. 10:05 Details of fall: The patient fell from an upright position. Onset: The symptoms/episode rn began/occurred this morning. Associated injuries: The patient sustained injury to the head, Right knee, left hip. The patient has experienced similar episodes in the past. EMS reports brought from shelter after fall. Patient is not supposed to be ambulating without assistance, tried to ambulate without assistance and fell. Unwitnessed fall. Patient reports pain to the head and neck, right knee, left hip. Family member called and states he has been acting funny over the last few days, more lethargic and confused. Patient reports cough and shortness of breath over the last few days as well and has subjective chills and feels ill.. Historical: - Allergies: 08:38 Aspirin; ld1 08:38 Iodine; ld1 08:38 PENICILLINS; ld1 08:38 SHELLFISH; ld1 08:38 Tramadol HCl; ld1 - PMHx: 08:38 BLIND; diabetes mellitus; Hypercholesterolemia; kidney disease; Myocardial infarction; ld1 stroke; - PSHx: 08:38 stents; ld1 - Immunization history:: Adult Immunizations up to date. - Infectious Disease History:: Denies. - Social history:: Smoking status: Patient denies any tobacco usage or history of. - Family history:: not pertinent. - Hospitalizations: : No recent hospitalization is reported. 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 Exam: 10:05 Constitutional: This is a well developed, well nourished patient who is awake, alert, rn and in no acute distress. Head/Face: Normocephalic, atraumatic. Neck: No midline cervical tenderness Chest/axilla: Normal chest wall appearance and motion. Nontender with no deformity. Cardiovascular: Regular rate and rhythm. No pulse deficits. Respiratory: No increased work of breathing, no retractions or nasal flaring. Abdomen/GI: Soft, non-tender Back: No spinal tenderness. MS/ Extremity: Pulses equal, no cyanosis. Neurovascular intact. Mild painful range of motion right knee and left hip without gross deformity or significant pain elicited Neuro: Awake and alert, GCS 15, oriented to person, place, time. 12:55 ECG was reviewed by the Attending Physician. rn Vital Signs: 08:32 BP 142 / 81; Pulse 70; Resp 14; Temp 97.5(TE); Pulse Ox 100% on R/A; Weight 60.78 kg; ld1 Height 5 ft. 4 in. ; Pain 6/10; 09:43 BP 151 / 71; Pulse 67; Resp 15 S; Pulse Ox 99% on R/A; ld1 10:29 BP 129 / 85; Pulse 77; Resp 18; Pulse Ox 97% on R/A; ld1 12:56 BP 115 / 74; Pulse 71; Resp 18; Pulse Ox 98% on R/A; ld1 13:45 BP 120 / 72; Pulse 67; Resp 18; Pulse Ox 100% on R/A; ar6 08:32 Body Mass Index 23.00 (60.78 kg, 162.56 cm) ld1 08:32 Pain Scale: Adult ld1 MDM: 08:31 Patient medically screened. rn 11:28 Differential diagnosis: abrasion, contusion, fracture, sprain, strain, UTI, pneumonia, rn viral syndrome, dehydration. Data reviewed: vital signs, nurses notes, lab test result(s), EKG, radiologic studies, CT scan, plain films, and as a result, I will admit patient. Consideration of Admission/Observation Patient was admitted/placed on observation. Escalation of care including admission/observation considered. Care significantly affected by the following chronic conditions: Diabetes, Hypertension. Counseling: I had a detailed discussion with the patient and/or guardian regarding the historical points, exam findings, and any diagnostic results supporting the discharge/admit diagnosis, lab results, radiology results, the need for further work-up and treatment in the hospital. Special discussion:. ED course: Daughter called and states patient not acting at his baseline. CT shows nonspecific inflammation and opacities bilaterally with interstitial thickening and reactive lymphadenopathy. Will admit to hospitalist service given patient reports symptomatic dyspnea and possibly signs of delirium per daughter.. 05/18 08:41 Order name: CBC with Diff; Complete Time: 09:49 rn 05/18 08:41 Order name: Basic Metabolic Panel; Complete Time: 09:49 rn 05/18 08:41 Order name: Urinalysis w/ reflexes; Complete Time: 10:05 rn 05/18 08:46 Order name: SARS RAPID; Complete Time: 09:49 rn 05/18 08:46 Order name: Flu; Complete Time: 09:49 rn 05/18 09:51 Order name: Blood Culture Adult (2) rn 05/18 09:51 Order name: Lactate w/ 2H reflex if indic.; Complete Time: 11:14 rn 05/18 13:04 Order name: T4 Free EDMS 05/18 13:04 Order name: Thyroid Stimulating Hormone EDMS 05/18 13:04 Order name: Basic Metabolic Panel EDMS 05/18 13:04 Order name: Basic Metabolic Panel EDMS 05/18 13:04 Order name: Basic Metabolic Panel EDMS 05/18 13:04 Order name: Basic Metabolic Panel EDMS 05/18 13:04 Order name: CBC with Automated Diff EDMS 05/18 13:04 Order name: CBC with Automated Diff EDMS 05/18 13:04 Order name: CBC with Automated Diff EDMS 05/18 13:04 Order name: CBC with Automated Diff EDMS 05/18 13:04 Order name: Lipid Profile EDMS 05/18 13:04 Order name: Lipid Profile EDMS 05/18 13:04 Order name: Magnesium EDMS 05/18 13:04 Order name: Magnesium EDMS 05/18 13:04 Order name: Magnesium EDMS 05/18 13:04 Order name: Magnesium EDMS 05/18 13:04 Order name: Phosphorus EDMS 05/18 13:04 Order name: Phosphorus EDMS 05/18 13:04 Order name: Phosphorus EDMS 05/18 13:04 Order name: Phosphorus EDMS 05/18 13:04 Order name: Troponin High Sensitivity EDMS 05/18 13:04 Order name: Troponin High Sensitivity EDMS 05/18 13:04 Order name: Troponin High Sensitivity EDMS 05/18 13:04 Order name: Troponin High Sensitivity EDMS 05/18 15:18 Order name: Troponin High Sensitivity EDMS 05/18 08:40 Order name: CT Head C Spine; Complete Time: 09:49 rn 05/18 08:40 Order name: XRAY Knee LEFT 3 view; Complete Time: 09:49 rn 05/18 08:46 Order name: XRAY Chest (1 view); Complete Time: 09:49 rn 05/18 09:09 Order name: Chest Abd Pelvis Wo Con; Complete Time: 09:38 EDMS 05/18 09:20 Order name: Knee Right 3 View; Complete Time: 09:49 EDMS 05/18 10:05 Order name: XRAY Hip LEFT 2 view; Complete Time: 11:26 rn 05/18 08:40 Order name: EKG - Nurse/Tech; Complete Time: 08:55 rn EC:55 Rate is 68 beats/min. Rhythm is regular. QRS [place] is Normal. [place] interval is normal. QRS rn interval is normal. QT interval is normal. No Q waves. T waves are Normal. No ST changes noted. Clinical impression: NSR w/ Non-specific ST/T Changes. Interpreted by me. Reviewed by me. Administered Medications: 09:01 Drug: NS 0.9% IV 250 ml IV at bolus once Route: IV; Rate: bolus; Site: right forearm; kc6 11:00 Follow up: Response: No adverse reaction; IV Status: Completed infusion; IV Intake: kc6 250ml 12:43 Drug: Zithromax IVPB 500 mg IVPB once over 1 hrs; mix in 250 mL NS Route: IVPB; Infused kc6 Over: 1 hrs; Site: left forearm; 13:50 Follow up: Response: No adverse reaction ar6 Disposition Summary: 05/18/24 11:43 Hospitalization Ordered Notes: Hospitalization Status: Observation rn Provider: Sy Avila rn Location: Telemetry/MedSurg (observation) rn Condition: Stable rn Problem: new rn Symptoms: have improved rn Bed/Room Type: Standard rn Room Assignment: 207(05/18/24 13:11) bd Diagnosis - Fall on same level, unspecified rn - Cough rn - Dyspnea, unspecified rn Forms: - Medication Reconciliation Form rn - SBAR form rn - Leadership Thank You Letter rn Signatures: Dispatcher [employer] EDMS magalie Key Marcelino Moore MD MD rn Sims, Lauren, RN RN ld1 Makayla Martin RN RN kc6 Amie Batista RN ar6 Corrections: (The following items were deleted from the chart) 08:41 08:41 Knee Left 3 View+RAD.RAD.BRZ ordered. EDMS EDMS 08:46 08:46 Chest Single View+RAD.RAD.BRZ ordered. EDMS EDMS 08:46 08:46 SARS-COV-2 Antigen Rapid+I.LAB.BRZ ordered. EDMS EDMS 08:46 08:46 Influenza Screen (A \T\ B)+BA.LAB.BRZ ordered. EDMS EDMS 09:51 09:51 BLOOD CULTURE*+BA.LAB.BRZ ordered. EDMS EDMS 09:51 09:51 LACTATE+C.LAB.BRZ ordered. EDMS EDMS 13:11 11:43 rn judy
[2024-05-18] MEDS ORDERED: AZITHROMYCIN 500 MG INJ IVPB ONE (12:14)
--- NOTE | 2024-05-18 12:20 | P.HP ---
Certification for Inpatient Patient admitted to: Observation With expected LOS: <2 Midnights Patient will require the following post-hospital care: None Practitioner: I am a practitioner with admitting privileges, knowledge of patient current condition, hospital course, and medical plan of care. Services: Services provided to patient in accordance with Admission requirements found in Title 42 Section 412.3 of the Code of Federal Regulations Patient History Date of Service: 05/18/24 Reason for admission: Trauma falls, RITU History of Present Illness: Kel Acuna is an 83 year old male with PMhx blind, diabetes mellitus, hypercholesterolemia, kidney disease, myocardial infarction, stroke who presents the ED with chief complaint of unwitnessed fall, weakness, confusion. Patient's family reported to the ED provider, Kel is "acting funny" over the last few days. Initial vitals BP 142 / 81; Pulse 70; Resp 14; Temp 97.5(TE); Pulse Ox 100% on R/A; Laboratory evaluation Hct 49.7, Na 134, BUN/creatinine 21/1.48, GFR 47, flu negative, UA negative for infectious process. Head and c-spine CT reports "No acute intracranial or cervical spine findings" CT abd/pelvis reports "No acute abnormality seen. Mild nonspecific lymphadenopathy in the chest and abdomen as detailed. Follow-up imaging would be recommended in 3, 6 months to monitor. Interstitial thickening in both upper lobes, greater on the right." Left hip xray reports "Mild osteoarthritis affects the left hip. The bones are moderately demineralized. No fracture, dislocation or AVN." Left knee xray reports "Mild tricompartmental osteoarthritis is present. Mild chondrocalcinosis of the menisci. No acute fracture or dislocation seen. No intraarticular joint effusion." Right knee xray reports " Mild medial compartment space narrowing is present. No acute fracture or dislocation." Chest xray reports "No acute intrathoracic process suspected." Kel will be admitted to hospitalist service for further evaluation and treatment. Allergies iodine Allergy (Verified 07/11/22 14:43) Hives aspirin Adverse Reaction (Verified 07/11/22 14:43) Hives/Rash Penicillins Adverse Reaction (Verified 07/11/22 14:43) Hives Home Medications: Nitroglycerin [Nitrostat*] 0.4 mg SL Q5MX3, Q15MX1, Q30M PRN 08/22/21 Tamsulosin HCl [Flomax] 0.4 mg PO DAILY 08/22/21 Acetaminophen [Acetaminophen Extra Strength] 1,000 mg PO BEDTIME 05/18/24 Acetaminophen [Tylenol*] 650 mg PO Q6HR PRN 05/18/24 Ipratropium/Albuterol Sulfate [Iprat-Albut 0.5-3(2.5) mg/3 ml] 3 aero NEB Q4HR 05/18/24 Mag Hydrox/Al Hydrox/Simeth [Maalox Suspension] 30 ml PO Q8HR 05/18/24 buPROPion HCL [Wellbutrin Xl] 150 mg PO AC 05/18/24 - Past Medical/Surgical History Diabetic: Yes -: Diabetes mellitus type 2 -: Hypertension -: Hyperlipidemia -: BPH -: CAD -: Seasonal allergies -: MELANIE -: blind -: a -: Prior cardiac stents x3 Psychosocial/ Personal History: [place]. Was in [facility] prior to this. - Family History Family History: Reviewed- Non-Contributory - Social History Smoking Status: Never smoker Alcohol use: No CD- Drugs: No Caffeine use: No Review of Systems is unable to be obtained Physical Examination - Physical Exam General: Alert, In no apparent distress, Confused HEENT: Atraumatic, Normocephalic Neck: Supple, 2+ carotid pulse no bruit Respiratory: Clear to auscultation bilaterally, Normal air movement Cardiovascular: Normal pulses, Regular rate/rhythm, Normal S1 S2 Capillary refill: <2 Seconds Gastrointestinal: Normal bowel sounds, Soft and benign, Non-distended, No ten derness Musculoskeletal: No clubbing Integumentary: No rashes Neurological: Normal speech, Normal tone - Studies Laboratory Data (last 24 hrs) 05/18/24 05/18/24 08:58 08:58 WBC 4.00 L Hgb 16.8 Hct 49.7 H Plt Count 151 L Sodium 134 L Potassium 4.4 BUN 21 H Creatinine 1.48 H Glucose 88 Microbiology Data (last 24 hrs): 05/18/24 08:54 Nasopharnyx Influenza Type A Antigen Screen - Final 05/18/24 08:54 Nasopharnyx Influenza Type B Antigen Screen - Final Assessment and Plan - Plan Assessment and plan Trauma fall Weakness Confusion -Fall risk -Reorient when needed -PT consulted -All imaging without acute findings RITU likely 2/2 dehydration Hyponatremia Polycythemia likely d/t dehydration -Gentle IV fluids -Monitor labs in the a.m. -Strict I and O Diabetes mellitus -Accu-Chek with sliding scale insulin -A1C pending Blind hypercholesterolemia myocardial infarction stroke -Continue home medication -Supportive care -Fall precautions DVT PPx SCD Full code LOS 2 days Discharge Plan: Half-Way Plan to discharge in: 48 Hours - Advance Directives Does patient have a Living Will: No Does patient have a Durable POA for Healthcare: No
[2024-05-18] MEDS ORDERED: ACETAMINOPHEN 325 MG TABLET PO PRN (12:57)
[2024-05-18] MEDS ORDERED: ACETAMINOPHEN 500 MG TAB PO PRN (12:57)
[2024-05-18 15:18] LABS: Thyroid Stimulating Hormone 2.52 uIU/mL (0.358-3.740); Troponin High Sensitivity 15.4 pg/mL (<58.9)
[2024-05-18 16:00] VITALS: O2SAT 100
[2024-05-18] MEDS: NA CHLORIDE 0.9% 1,000 ML IV SCH (16:12)
[2024-05-18] MEDS: HEPARIN 5000 UNIT/ML 1 ML VIAL SQ SCH (16:57)
[2024-05-18] MEDS: INSULIN REGULAR (HUMAN) 100 UNIT/ML SQ SCH (21:00)
[2024-05-19 06:17] LABS: Absolute Eosinophils 0.1 K/uL (0-0.5); Absolute Lymphocytes (CBC) 0.6 K/uL (0.7-4.9); Absolute Monocytes 0.5 K/uL (0.1-1.3); Absolute Neutrophil 2.1 K/uL (1.8-8.0); Basophils % 0.8 % (0-1.3); Eosinophils % 3.3 % (0-4.4); Hematocrit 42.2 % (39.6-49.0); Hemoglobin 14.3 g/dL (13.6-17.9); Lymphocytes % 18.8 % (15.3-44.8); MCH 32.9 pg (27.0-35.0); MCHC 33.8 g/dL (32.0-36.0); MCV 97.4 fL (80-100); MPV 8.2 fL (7.6-11.3); Monocytes % 14.1 % (3.3-12.3); Nucleated Red Blood Cells % 0.1 % (0-0); Platelets 135 thou/uL (152-406); RBC Red Blood Cell Count 4.33 M/uL (4.33-5.43)
[2024-05-19 06:34] LABS: Troponin High Sensitivity 13.7 pg/mL (<58.9)
[2024-05-19 06:35] LABS: Magnesium 2.1 mg/dL (1.6-2.4)
[2024-05-19 11:56] VITALS: BMI 23.0
[2024-05-19] MEDS: PNEUMOCOCCAL VACCINE 0.5 ML IMVAC ONE (12:14)
[2024-05-19 12:27] VITALS: BP 115/56
--- NOTE | 2024-05-19 13:09 | EKG ---
Test Date: 2024-05-18 Test Time: 08:53:23 Museum Tour Guide: JEM MEASUREMENT RESULTS: Intervals: Rate: 68 AL: 164 QRSD: 68 QT: 404 QTc: 429 [place]: P: 84 AL: 164 QRS: -46 T: 134 INTERPRETIVE STATEMENTS: Normal sinus rhythm Left anterior fascicular block Abnormal ECG Compared to ECG 08/03/2023 11:37:58 Left anterior fascicular block now present Left ventricular hypertrophy no longer present Early repolarization no longer present Electronically Signed On 05-19-24 13:05:46 CDT by Viral Streeter
--- NOTE | 2024-05-19 15:31 | P.DS ---
Admission Date: 05/18/24 Discharge Date: 05/19/24 Disposition: TRANSFER TO LONGTERM Reason for Admission: Trauma falls, RITU Brief History of Present Illness: Diagnosis Trauma fall Weakness Confusion RITU likely 2/2 dehydration Hyponatremia Polycythemia likely d/t dehydration Diabetes mellitus Blind hypercholesterolemia myocardial infarction stroke HPI 05/18/24 Kel Acuna is an 83 year old male with PMhx blind, diabetes mellitus, hypercholesterolemia, kidney disease, myocardial infarction, stroke who presents the ED with chief complaint of unwitnessed fall, weakness, confusion. Patient's family reported to the ED provider, Kel is "acting funny" over the last few days. Initial vitals BP 142 / 81; Pulse 70; Resp 14; Temp 97.5(TE); Pulse Ox 100% on R/A; Laboratory evaluation Hct 49.7, Na 134, BUN/creatinine 21/1.48, GFR 47, flu negative, UA negative for infectious process. Head and c-spine CT reports "No acute intracranial or cervical spine findings" CT abd/pelvis reports "No acute abnormality seen. Mild nonspecific lymphadenopathy in the chest and abdomen as detailed. Follow-up imaging would be recommended in 3, 6 months to monitor. Interstitial thickening in both upper lobes, greater on the right." Left hip xray reports "Mild osteoarthritis affects the left hip. The bones are moderately demineralized. No fracture, dislocation or AVN." Left knee xray reports "Mild tricompartmental osteoarthritis is present. Mild chondrocalcinosis of the menisci. No acute fracture or dislocation seen. No intraarticular joint effusion." Right knee xray reports " Mild medial compartment space narrowing is present. No acute fracture or dislocation." Chest xray reports "No acute intrathoracic process suspected." Kel will be admitted to hospitalist service for further evaluation and treatment. Hospital Course: Kel Acuna is a pleasant 83 year old male with a past medical history significant for blind, diabetes mellitus, hypercholesterolemia, kidney disease, myocardial infarction, stroke who was admitted to the [facility] on 05/18/24 for Weakness [facility]. Kel was admitted for a recent fall and continued weakness, his family was concerned with his continued weakness and had him come to the ED for further evaluation. All imaging performed was negative for acute findings. Creatinine, sodium, and hematocrit returned to normal with gentle IVF. Troponins remained negative, EKG without ST changes, on continuous telemetry with no abnormalities seen, PT evaluated and found him to need verbal Q's to navigate his room but showed strength with ambulation using a walker. He is tolerating PO diet, urinating without difficulty, and hemodynamically stable for discharge. On 05/19/24, Kel was seen on morning rounds and deemed medically stable for discharge. Kel was discharged with instructions to schedule follow-up appointments with PCP. Physical Exam General: Awake, Alert, Oriented x2, Confused, NAD HEENT: Atraumatic, Normocephalic Neck: Supple, 2+ carotid pulse no bruit Respiratory: Clear to auscultation bilaterally, Normal air movement Cardiovascular: Normal pulses, RRR, Normal S1 S2, no murmur noted Capillary refill: <2 Seconds Gastrointestinal: Normal active bowel sounds, Soft and benign on palpation, Non- distended, No tenderness Musculoskeletal: No clubbing, 2+ peripheral pulses Integumentary: No rashes Neurological: Normal speech, Normal tone Vital Signs/Physical Exam: Temp Pulse Resp BP Pulse Ox 97.7 F 69 15 115/56 L 96 05/19/24 12:00 05/19/24 12:00 05/19/24 12:00 05/19/24 12:00 05/19/24 12:00 Laboratory Data at Discharge: WBC 3.30 thou/uL (4.3-10.9) L 05/19/24 05:36 Hgb 14.3 g/dL (13.6-17.9) D 05/19/24 05:36 Hct 42.2 % (39.6-49.0) 05/19/24 05:36 Plt Count 135 thou/uL (152-406) L 05/19/24 05:36 Sodium 137 mEq/L (136-145) 05/19/24 05:36 Potassium 4.0 mEq/L (3.5-5.1) 05/19/24 05:36 BUN 18 mg/dL (7-18) 05/19/24 05:36 Creatinine 1.08 mg/dL (0.70-1.30) 05/19/24 05:36 Glucose 86 mg/dL (74-106) 05/19/24 05:36 Phosphorus 3.0 mg/dL (2.5-4.9) 05/19/24 05:36 Magnesium 2.1 mg/dL (1.6-2.4) 05/19/24 05:36 Triglycerides 142 mg/dL (<150) 05/19/24 05:36 Cholesterol 96 mg/dL (<200) 05/19/24 05:36 HDL Cholesterol 24 mg/dL (40-60) L 05/19/24 05:36 Cholesterol/HDL Ratio 4.00 05/19/24 05:36 Home Medications: Nitroglycerin [Nitrostat*] 0.4 mg SL Q5MX3, Q15MX1, Q30M PRN 08/22/21 Tamsulosin HCl [Flomax] 0.4 mg PO DAILY 08/22/21 Acetaminophen [Acetaminophen Extra Strength] 1,000 mg PO BEDTIME 05/18/24 Acetaminophen [Tylenol*] 650 mg PO Q6HR PRN 05/18/24 Ipratropium/Albuterol Sulfate [Iprat-Albut 0.5-3(2.5) mg/3 ml] 3 aero NEB Q4HR 05/18/24 Mag Hydrox/Al Hydrox/Simeth [Maalox Suspension] 30 ml PO Q8HR 05/18/24 buPROPion HCL [Wellbutrin Xl] 150 mg PO AC 05/18/24 Physician Discharge Instructions: Kel Acuna was observed and evaluated for altered mental status. No infectious process was seen, He tolerated IV fluids, remains on Room air without complications. 1. Please call and schedule a follow-up appointment with your PCP in 3-5 days - Please follow-up with your PCP for medication refills/adjustments 2. Continue heart healthy diet 3. activity restrictions, fall precaution 4. Return to the ED if symptoms worsen Diet: AHA Activity: Fall precautions Followup: Ramiro Molina MD [Primary Care Provider] - 1-2 Weeks
[2024-05-19 16:28] VITALS: TEMP 98.1
== END 2024-05-19 18:09 ==
LOC: ER 08:30 → 2ND 12:57
PROVIDERS: ADMIT Internal Medicine; ATTEND Internal Medicine
DX: R41.0 Disorientation, unspecified (principal); R53.1 Weakness; W18.30XA Fall on same level, unspecified, initial encounter; Y93.9 Activity, unspecified; Y92.019 Unspecified place in single-family (private) house as the place of occurrence of the external cause; E11.9 Type 2 diabetes mellitus without complications; E78.00 Pure hypercholesterolemia, unspecified; I25.2 Old myocardial infarction; N17.9 Acute kidney failure, unspecified; E86.0 Dehydration; E87.1 Hypo-osmolality and hyponatremia; Z86.73 Personal history of transient ischemic attack (TIA), and cerebral infarction without residual deficits; M16.11 Unilateral primary osteoarthritis, right hip; D75.1 Secondary polycythemia
CPT/HCPCS: 96365; 93005; 87040 ×2; 85025 ×2; 81001; 80048 ×2; 36415 ×2; 83735; 84100; 80061; 82947 ×4; 83605; 84443; 83036; 84484 ×3; 84439; 87804 ×2; 70450; 71250; 72125; 74176; 71045; 73502; 73562 ×2; 97116; 97161; 97530; 96375; 99285; 96366; 87811; J1644 ×3; J7050 ×2; J7030; G0378

== ENCOUNTER 2024-06-06 17:34 | Emergency (ER) | payer OTHER ==
--- NOTE | 2024-06-06 18:35 | RAD REPORT ---
EXAM DESCRIPTION: CT - Head C Spine Mpr Wo Con - 06/06/2024 5:55 pm CLINICAL HISTORY: Head and neck injury status post fall. Head and neck pain COMPARISON: May 18, 2024 TECHNIQUE: Computed axial tomography of the head and cervical spine was obtained. Sagittal and coronal reconstruction was performed. All CT scans are performed using dose optimization technique as appropriate and may include automated exposure control or mA/KV adjustment according to patient size. FINDINGS: An intracranial bleed is not seen. The ventricles are normal in caliber. Mild low-density within periventricular, deep subcortical white matter probably ischemic changes seco ndary to small vessel disease. Prominence of the ventricles is unchanged probably related to atrophy. An extra-axial fluid collection is not noted. Fluid within the visualized sinuses and mastoids is not seen. Chronic sphenoid sinusitis A cervical fracture is not visualized. No dislocation is noted. Mild anterior subluxation C3 on C4 unchanged IMPRESSION: No acute intracranial abnormality is seen. A cervical fracture is not visualized. If the patient continues to have symptoms to suggest intracranial /spinal cord pathology then MRI wou ld be recommended
--- NOTE | 2024-06-06 18:41 | EDPHYS ---
Physician Documentation [facility] Name: Kel Acuna Age: 83 yrs Sex: Male : 1940 Arrival Date: 06/06/2024 Time: 17:34 Bed 4 Private MD: ED Physician Adarsh Gomez HPI: 06/06 18:05 This 83 yrs old Male presents to ER via EMS with complaints of Fall Injury. sp3 18:05 83-year-old male with a history of diabetes, hyperlipidemia, kidney disease, [place] sp3 currently DNR from group home presents via EMS for mechanical ground-level fall with injury to the right forehead and head area with no LOC or bleeding. No other injury noted and fall was witnessed. History, physical limited secondary to patient's baseline status and dementia.. Historical: - Allergies: 17:40 Aspirin; dd2 17:40 Iodine; dd2 17:40 PENICILLINS; dd2 17:40 SHELLFISH; dd2 17:40 Tramadol HCl; dd2 - PMHx: 17:40 BLIND; diabetes mellitus; Hypercholesterolemia; kidney disease; Myocardial infarction; dd2 stroke; - PSHx: 17:40 stents; dd2 - Immunization history:: Adult Immunizations unknown. - Infectious Disease History:: Denies. - Social history:: Smoking status: Patient denies any tobacco usage or history of. ROS: 18:06 Unable to obtain ROS due to altered mental status, baseline dementia, sp3 Exam: 18:06 Constitutional: This is a well developed, well nourished patient who is awake, alert, sp3 and in no acute distress. Chest/axilla: Normal chest wall appearance and motion. Nontender with no deformity. No lesions are appreciated. Cardiovascular: Regular rate and rhythm with a normal S1 and S2. No gallops, murmurs, or rubs. Normal PMI, no JVD. No pulse deficits. 18:06 Head/face: Hematoma noted on the right forehead and anterior parietal area.. Vital Signs: 17:36 BP 121 / 66; Pulse 83; Resp 16; Pulse Ox 98% ; dd2 18:01 BP 134 / 66; Pulse 75; Resp 15; Pulse Ox 97% ; dd2 20:00 BP 129 / 70; Pulse 76; Resp 16; Pulse Ox 97% ; pc2 MDM: 17:37 Patient medically screened. sp3 18:06 Data reviewed: vital signs, nurses notes, radiologic studies. ED course: 83-year-old sp3 patient in no acute distress here for evaluation for mechanical ground-level fall without LOC. Will obtain CT scan of the head and C-spine. Differential diagnosis includes forehead contusion versus intracranial hemorrhage versus closed head injury. If workup negative we will safely discharge patient home.. 06/06 17:37 Order name: CT Head C Spine; Complete Time: 18:39 sp3 Administered Medications: 17:59 CANCELLED (error): [id number] mg IVP once sp3 Disposition Summary: 06/06/24 18:40 Discharge Ordered Notes: Location: Home sp3 Condition: Stable sp3 Diagnosis - Closed head injury, forehead contusion sp3 Followup: sp3 - With: Private Physician - When: Upon discharge from the Emergency Department - Reason: Continuance of care Discharge Instructions: - Discharge Summary Sheet sp3 - Head Injury, Adult sp3 Forms: - Medication Reconciliation Form sp3 - Antibiotic Education sp3 - Prescription Opioid Use sp3 - Patient Portal Instructions sp3 - Leadership Thank You Letter sp3 Signatures: Dispatcher [employer] EDMS Adarsh Gomez MD MD sp3 EDGAR GARNER RN RN dd2 Corrections: (The following items were deleted from the chart) 17:59 17:59 Promethazine IVP 12.5 mg IVP once ordered. sp3 sp3
--- NOTE | 2024-06-06 18:41 | ER ---
Nurse's Notes [facility] Name: Kel Acuna Age: 83 yrs Sex: Male : 1940 Arrival Date: 06/06/2024 Time: 17:34 Bed 4 Private MD: Diagnosis: Closed head injury, forehead contusion Presentation: 06/06 17:36 Chief complaint: EMS states: Pt brought in via EMS from [facility] for fall dd2 from standing. Per EMS, pt was attempting to get into wheelchair and tripped over blanket, falling and hitting head on ground. MA denies LOC. Pt on blood thinners. Hematoma on Rt forehead. Coronavirus screen: At this time, the client does not indicate any symptoms associated with coronavirus-19. Ebola Screen: No symptoms or risks identified at this time. Initial Sepsis Screen: Does the patient meet any 2 criteria? No. Patient's initial sepsis screen is negative. Does the patient have a suspected source of infection? No. Patient's initial sepsis screen is negative. Risk Assessment: Do you want to hurt yourself or someone else? Patient reports no desire to harm self or others. Onset of symptoms was June 06, 2024. 17:36 Method Of Arrival: EMS: [facility] dd2 17:36 Acuity: LEONID 3 dd2 17:36 Care prior to arrival: Glucose check: 164. dd2 Triage Assessment: 17:40 General: Appears in no apparent distress. Behavior is calm, cooperative. Pain: dd2 Complains of pain in neck. EENT: No deficits noted. Neuro: No deficits noted. Cardiovascular: No deficits noted. Respiratory: No deficits noted. GI: No deficits noted. : No deficits noted. Derm: Wound noted Rt forehead. Musculoskeletal: No deficits noted. Injury Description: Head injury sustained to Rt forehead. Historical: - Allergies: 17:40 Aspirin; dd2 17:40 Iodine; dd2 17:40 PENICILLINS; dd2 17:40 SHELLFISH; dd2 17:40 Tramadol HCl; dd2 - PMHx: 17:40 BLIND; diabetes mellitus; Hypercholesterolemia; kidney disease; Myocardial infarction; dd2 stroke; - PSHx: 17:40 stents; dd2 - Immunization history:: Adult Immunizations unknown. - Infectious Disease History:: Denies. - Social history:: Smoking status: Patient denies any tobacco usage or history of. Screenin:45 [facility] ED Fall Risk Assessment (Adult) History of falling in the last 3 months, ko1 including since admission Yes- single mechanical fall (1 pt) Confusion or Disorientation No (0 pts) Intoxicated or Sedated No (0 pts) Impaired Gait Yes (1 pt) Mobility Assist Device Used Yes (1 pt) Altered Elimination No (0 pt) Score/Fall Risk Level 3 or more points = High Risk Oriented to surroundings, Maintained a safe environment, Educated pt \T\ family on fall prevention, incl call for assistance when getting out of bed, Assessed \T\ reinforced patient's understanding of fall precautions, Provided non-skid footwear, Hourly rounding (assess needs \T\ fall precautionary measures) done, Used ambulatory aids as needed (educated on \T\ assisted with), Used gait belt as appropriate Implemented a Fall Risk Plan of Care, Apply high fall risk patient identification: yellow non skid footwear/ fall signage, Remained w/in arm's length of patient and in sight while toileting, Offered frequent toileting (1:1 observation), Remained with patient while ambulating, Utilized family, sitter, or virtual hospital chief executive officer as indicated. Abuse screen: Denies threats or abuse. Denies injuries from another. Nutritional screening: No deficits noted. Tuberculosis screening: No symptoms or risk factors identified. Assessment: 18:44 Reassessment: SEE TRIAGE NOTE FOR FULL ASSESSMENT. dd2 20:00 Reassessment: Patient appears in no apparent distress at this time. Patient and/or pc2 family updated on plan of care and expected duration. Pain level reassessed. Patient is alert, oriented x 3, equal unlabored respirations, skin warm/dry/pink. Vital Signs: 17:36 BP 121 / 66; Pulse 83; Resp 16; Pulse Ox 98% ; dd2 18:01 BP 134 / 66; Pulse 75; Resp 15; Pulse Ox 97% ; dd2 20:00 BP 129 / 70; Pulse 76; Resp 16; Pulse Ox 97% ; pc2 ED Course: 17:35 Patient arrived in ED. dd2 17:36 EDGAR GARNER RN is Primary Nurse. dd2 17:36 Fly Lara PA is PHCP. cp 17:36 Adarsh Gomez MD is Attending Physician. cp 17:40 Triage completed. dd2 17:40 Arm band placed on right wrist. Patient placed in an exam room, on a stretcher, on dd2 pulse oximetry. 17:45 Patient has correct armband on for positive identification. Allergy band placed. Fall ko1 risk band placed. Placed in gown. Bed in low position. Call light in reach. Side rails up X2. Provided Education on: tests, call light. Pulse ox on. NIBP on. Door closed. Noise minimized. Lights dimmed. Pillow given. 17:45 No provider procedures requiring assistance completed. Patient did not have IV access ko1 during this emergency room visit. 17:55 CT Head C Spine In Process Unspecified. EDMS 19:30 Awaiting transportation, Awaiting: to [place] facility. pc2 20:19 PO fluids given. pc2 20:20 Patient requests rest room assistance. Provided urinal and assistance. pc2 Administered Medications: 17:59 CANCELLED (error): [id number] mg IVP once sp3 Medication: 17:45 VIS not applicable for this client. ko1 Outcome: 18:40 Discharge ordered by . sp3 18:55 Discharged to longterm. Report called to RECEIVING NURSE dd2 18:55 Condition: stable 18:55 Discharge instructions given to longterm, Instructed on discharge instructions, follow up and referral plans. Demonstrated understanding of instructions, follow-up care, 21:20 Patient left the ED. pc2 Signatures: Dispatcher [employer] EDMS Fly Lara PA PA cp Patel, Setul, MD MD sp3 Collette Milner RN RN ko1 Lizette Agarwal, RN RN pc2 EDGAR GARNER RN RN dd2
[2024-06-06 21:27] VITALS: O2SAT 97
[2024-06-06 21:29] VITALS: BP 129/70
== END 2024-06-06 21:20 | disposition home or self-care (01) ==
LOC: ER 17:34
DX: S00.83XA Contusion of other part of head, initial encounter (principal); W18.30XA Fall on same level, unspecified, initial encounter; Y92.129 Unspecified place in nursing home as the place of occurrence of the external cause; E11.22 Type 2 diabetes mellitus with diabetic chronic kidney disease; I25.2 Old myocardial infarction; F03.90 Unspecified dementia, unspecified severity, without behavioral disturbance, psychotic disturbance, mood disturbance, and anxiety
CPT/HCPCS: 70450; 72125; 99283

== ENCOUNTER 2025-07-10 09:18 | Emergency (ER) | payer OTHER, MEDICAID ==
--- NOTE | 2025-07-10 09:42 | RAD REPORT ---
EXAMINATION: Head C Spine Mpr Wo Con CLINICAL INDICATION: Male, 84 years old. TRAUMA TECHNIQUE: Axial CT images from the skull base to the vertex without intravenous contrast. Axial CT i mages through the cervical spine were obtained without intravenous contrast. Sagittal and coronal reformatted images were created from the data set. Coronal and sagittal reformatted images were creat ed from the data set. One or more of the following dose reduction techniques were used: Automated exposure control, adjustment of the mA and/or kV according to patient size, and/or iterative reconstr uction. Unless otherwise specified, incidental findings do not require dedicated imaging follow-up. [id number]. COMPARISON: No prior exams FINDINGS: Head: INTRACRANIAL: No acute intracranial hemorrhage. No acute large vascular territory infarct. No hydroce phalus. No mass effect or midline shift. Mild chronic small vessel ischemic changes.Moderate cerebral atrophy. VASCULATURE: No visualized abnormalities in the arteries or dural venous sinuses. SCALP/SKULL: No calvarial fracture identified. No acute soft tissue abnormality. SINUSES: FESS changes with chronic mucoperiosteal thickening at the right maxillary sinus. No signifi cant mastoid fluid. Cervical spine: ALIGNMENT: The cervical spine has normal alignment without scoliosis or spondylolisthesis. BONE: Vertebral body heights are maintained. No aggressive osseous lesions. DEGENERATIVE: Multilevel cervical spondylosis with evidence of bilateral neural foraminal narrowing. No high grade central spinal stenosis. SOFT TISSUE: No significant abnormalities in the soft tissue of the neck. The visualized lung apices are clear. IMPRESSION: No acute intracranial abnormality. No acute fracture or traumatic malalignment of the cervical spine.
--- NOTE | 2025-07-10 09:44 | ER ---
Nurse's Notes [facility] Name: Kel Acuna Age: 84 yrs Sex: Male : 1940 Arrival Date: 07/10/2025 Time: 09:18 Bed 14 Private MD: Diagnosis: Fall on same level, unspecified Presentation: 07/10 09:18 Chief complaint: EMS states: Per EMS, patient fell and hit his head this morning. ar8 Patient states he went to turn and lost his balance falling backwards. 09:18 Care prior to arrival: None. Mechanism of Injury: Fall from standing position. Trauma ar8 event details: Injury occurred in the [facility], Injury occurred: [place] Injury occurred: July 10, 2025 Injury occurred at: 08:00. 09:18 Acuity: LEONID 3 ar8 09:18 Method Of Arrival: EMS: [facility] ar8 09:18 Risk Assessment: Do you want to hurt yourself or someone else? Patient reports no ar8 desire to harm self or others. 09:18 Coronavirus screen: At this time, the client does not indicate any symptoms associated ar8 with coronavirus-19. Ebola Screen: No symptoms or risks identified at this time. Initial Sepsis Screen: Does the patient meet any 2 criteria? No. Patient's initial sepsis screen is negative. Does the patient have a suspected source of infection? No. Patient's initial sepsis screen is negative. Onset of symptoms was July 10, 2025. Historical: - Allergies: 09:51 Aspirin; ar8 09:51 Iodine; ar8 09:51 PENICILLINS; ar8 09:51 SHELLFISH; ar8 09:51 Tramadol HCl; ar8 - PMHx: 09:51 BLIND; diabetes mellitus; Hypercholesterolemia; kidney disease; kidney disease; ar8 Myocardial infarction; stroke; - PSHx: 09:51 stents; ar8 - Immunization history: Last tetanus immunization: - up to date. - Infectious Disease History:: Denies. - Social history:: Smoking status: Patient denies any tobacco usage or history of. Screenin:18 Abuse screen: Denies threats or abuse. Tuberculosis screening: No symptoms or risk ar8 factors identified. 09:18 [facility] ED Fall Risk Assessment (Adult) History of falling in the last 3 months, ar8 including since admission Yes- single mechanical fall (1 pt) Confusion or Disorientation No (0 pts) Intoxicated or Sedated No (0 pts) Impaired Gait No (0 pts) Mobility Assist Device Used Yes (1 pt) Altered Elimination No (0 pt) Score/Fall Risk Level 0 - 2 = Low Risk Oriented to surroundings, Maintained a safe environment. Nutritional screening: No deficits noted. Primary Survey: 09:18 NO uncontrolled hemorrhage observed. Breathing/Chest: Spontaneous respiratory effort, ar8 equal unlabored respirations, breath sounds clear bilaterally, regular pattern, symmetrical chest rise and fall. Circulation: No external hemorrhage present. Regular and strong central pulse, skin warm/dry/normal color. Disability Client is alert. Exposure/Environment: A warming method has been applied: A warm blanket has been provided to the patient. Reassessment Breathing:. Reassessment. Assessment: 09:18 General: Appears in no apparent distress. Behavior is calm, cooperative. Pain: ar8 Complains of pain in left parietal area, right parietal area and occipital area Pain currently is 8 out of 10 on a pain scale. Pain began 1 hour ago. Neuro: Level of Consciousness is awake, alert, obeys commands, Oriented to person, place, time, situation, Speech is normal, Facial symmetry appears normal. Neuro: Reports headache occipital area. EENT: No signs and/or symptoms were reported regarding the EENT system. EENT: No signs and/or symptoms were reported regarding the EENT system. Cardiovascular: Patient's skin is warm and dry. Respiratory: Airway is patent Respiratory effort is even, unlabored, Respiratory pattern is regular, symmetrical. GI: No signs and/or symptoms were reported involving the gastrointestinal system. : No signs and/or symptoms were reported regarding the genitourinary system. Derm: No signs and/or symptoms reported regarding the dermatologic system. Derm: Skin is intact, Skin is dry, Skin is pink, warm \T\ dry. Musculoskeletal: No signs and/or symptoms reported regarding the musculoskeletal system. 10:15 Reassessment: Pending discharge following CXR results. Per NH, when patient fell he hit ar8 his chest against the sink. 11:30 Reassessment: Patient and/or family updated on plan of care and expected duration. Pain ar8 level reassessed. Patient is alert, oriented x 3, equal unlabored respirations, skin warm/dry/pink. 11:30 Reassessment: Patient and/or family updated on plan of care and expected duration. Pain ar8 level reassessed. Patient is alert, oriented x 3, equal unlabored respirations, skin warm/dry/pink. 12:37 Reassessment: [facility] contacted to set up transport for patient return to their ar8 facility. Vital Signs: 09:18 BP 166 / 79; Pulse 82; Resp 18; Temp 98.7(O); Pulse Ox 100% on R/A; Weight 65.77 kg; ar8 Height 5 ft. 2 in. ; Pain 8/10; 09:51 BP 148 / 72; Pulse 84; Resp 16; Pulse Ox 98% on R/A; ar8 10:15 BP 145 / 72; Pulse 80; Resp 19 S; Pulse Ox 97% on R/A; ar8 11:15 BP 156 / 79; Pulse 80; Resp 21; Pulse Ox 100% on R/A; ar8 12:15 BP 150 / 78; Pulse 78; Resp 15; Pulse Ox 98% on R/A; ar8 13:15 BP 166 / 86; Pulse 76; Resp 15; Pulse Ox 100% on R/A; Pain 5/10; ar8 09:18 Body Mass Index 26.52 (65.77 kg, 157.48 cm) ar8 09:18 Pain Scale: Adult ar8 13:15 Pain Scale: Adult ar8 [place] Coma Score: 09:18 Eye Response: spontaneous(4). Motor Response: obeys commands(6). Verbal Response: ar8 oriented(5). Total: 15. 09:47 Eye Response: spontaneous(4). Motor Response: obeys commands(6). Verbal Response: sb4 oriented(5). Total: 15. 09:51 Eye Response: spontaneous(4). Motor Response: obeys commands(6). Verbal Response: ar8 oriented(5). Total: 15. Trauma Score (Adult): 09:18 Eye Response: spontaneous(1); Verbal Response: oriented(1); Motor Response: obeys ar8 commands(2); Systolic BP: > 89 mm Hg(4); Respiratory Rate: 10 to 29 per min(4); [place] Score: 15; Trauma Score: 12 09:51 Eye Response: spontaneous(1); Verbal Response: oriented(1); Motor Response: obeys ar8 commands(2); Systolic BP: > 89 mm Hg(4); Respiratory Rate: 10 to 29 per min(4); [place] Score: 15; Trauma Score: 12 10:15 Eye Response: spontaneous(1); Verbal Response: oriented(1); Motor Response: obeys ar8 commands(2); Systolic BP: > 89 mm Hg(4); Respiratory Rate: 10 to 29 per min(4); [place] Score: 15; Trauma Score: 12 11:15 Eye Response: spontaneous(1); Verbal Response: oriented(1); Motor Response: obeys ar8 commands(2); Systolic BP: > 89 mm Hg(4); Respiratory Rate: 10 to 29 per min(4); [place] Score: 15; Trauma Score: 12 12:15 Eye Response: spontaneous(1); Verbal Response: oriented(1); Motor Response: obeys ar8 commands(2); Systolic BP: > 89 mm Hg(4); Respiratory Rate: 10 to 29 per min(4); Sammy Score: 15; Trauma Score: 12 13:15 Eye Response: spontaneous(1); Verbal Response: oriented(1); Motor Response: obeys ar8 commands(2); Systolic BP: > 89 mm Hg(4); Respiratory Rate: 10 to 29 per min(4); Sammy Score: 15; Trauma Score: 12 ED Course: 09:18 Patient arrived in ED. sb4 09:18 [facility] Oval[facility] sb[facility] 09:18 Bed in low position. Call light in reach. Side rails up X2. ar8 09:18 Provided Education on: plan of care. ar8 09:18 Arm band placed on right wrist. ar8 09:18 Patient maintains SpO2 saturation greater than 95% on room air. ar8 09:18 Thermoregulation: warm blanket given to patient. ar8 09:19 Adarsh Gomez MD is Attending Physician. sb4 09:24 Del Galloway, STEFAN is Primary Nurse. ar8 09:[address] via stretcher. ar8 09:26 Triage completed. ar8 09:37 Head C Spine MPR Wo Con CT In Process Unspecified. EDMS 09:40 Patient moved back from CT. ar8 09:57 Report given to Patient report called to ALDO [facility]sp[facility] at [facility]. ar8 10:55 Chest Single View XRAY In Process Unspecified. EDMS 13:27 No provider procedures requiring assistance completed. Patient did not have IV access ar8 during this emergency room visit. Administered Medications: No medications were administered Medication: 09:51 VIS not applicable for this client. ar8 Intake: 13:27 PO: 0ml; IV: 0ml; Total: 0ml. ar8 Output: 13:27 Urine: 300ml (Voided); Total: 300ml. ar8 Outcome: 09:44 Discharge ordered by MD. jules 13:00 Patient's length of stay in the Emergency Department was greater than 2 hours. patient ar8 awaiting transport for return to [facility]. Patient's length of stay extended due to 13:27 Discharged to residential. Report called to ALDO Ospina and transport. ar8 13:27 Condition: stable 13:27 Discharge instructions given to patient, residential, Instructed on discharge instructions, follow up and referral plans. Demonstrated understanding of instructions, follow-up care, 13:32 Patient left the ED. ar8 Signatures: Dispatcher [employer] EDBertha Xavier PA-C PA-C sb4 Del Galloway, RN RN ar8
--- NOTE | 2025-07-10 09:44 | EDPHYS ---
Physician Documentation [facility] Name: Kel Acuna Age: 84 yrs Sex: Male : 1940 Arrival Date: 07/10/2025 Time: 09:18 Bed 14 Private MD: ED Physician Adarsh Gomez HPI: 07/10 09:20 This 84 yrs old Male presents to ER via Unassigned with complaints of head sb4 injury. 09:45 Patient states that he lost his balance while he had gotten up to go wash his hands. He sb4 states he fell backwards and hit the back of his head. Denies any loss of consciousness. Reports mild pain. Is on blood thinners. Historical: - Allergies: 09:51 Aspirin; ar8 09:51 Iodine; ar8 09:51 PENICILLINS; ar8 09:51 SHELLFISH; ar8 09:51 Tramadol HCl; ar8 - PMHx: 09:51 BLIND; diabetes mellitus; Hypercholesterolemia; kidney disease; kidney disease; ar8 Myocardial infarction; stroke; - PSHx: 09:51 stents; ar8 - Immunization history: Last tetanus immunization: - up to date. - Infectious Disease History:: Denies. - Social history:: Smoking status: Patient denies any tobacco usage or history of. ROS: 09:45 Constitutional: Negative for fever, chills, and weight loss, sb4 09:45 Neuro: Positive for headache, 09:45 All other systems are negative, Exam: 09:45 Head/Face: Normocephalic, atraumatic. Eyes: Extra-ocular motions intact. Periorbital sb4 areas with no swelling, redness, or edema. ENT: Mucous membranes moist. Respiratory: No increased work of breathing, no retractions or nasal flaring. Abdomen/GI: Soft, non-tender, no distension. Skin: Warm, dry with normal turgor. Normal color with no rashes, no lesions, and no evidence of cellulitis. 09:45 Constitutional: The patient appears in no acute distress, alert, awake, Vital Signs: 09:18 BP 166 / 79; Pulse 82; Resp 18; Temp 98.7(O); Pulse Ox 100% on R/A; Weight 65.77 kg; ar8 Height 5 ft. 2 in. ; Pain 8/10; 09:51 BP 148 / 72; Pulse 84; Resp 16; Pulse Ox 98% on R/A; ar8 10:15 BP 145 / 72; Pulse 80; Resp 19 S; Pulse Ox 97% on R/A; ar8 11:15 BP 156 / 79; Pulse 80; Resp 21; Pulse Ox 100% on R/A; ar8 12:15 BP 150 / 78; Pulse 78; Resp 15; Pulse Ox 98% on R/A; ar8 13:15 BP 166 / 86; Pulse 76; Resp 15; Pulse Ox 100% on R/A; Pain 5/10; ar8 09:18 Body Mass Index 26.52 (65.77 kg, 157.48 cm) ar8 09:18 Pain Scale: Adult ar8 13:15 Pain Scale: Adult ar8 [place] Coma Score: 09:18 Eye Response: spontaneous(4). Motor Response: obeys commands(6). Verbal Response: ar8 oriented(5). Total: 15. 09:47 Eye Response: spontaneous(4). Motor Response: obeys commands(6). Verbal Response: sb4 oriented(5). Total: 15. 09:51 Eye Response: spontaneous(4). Motor Response: obeys commands(6). Verbal Response: ar8 oriented(5). Total: 15. Trauma Score (Adult): 09:18 Eye Response: spontaneous(1); Verbal Response: oriented(1); Motor Response: obeys ar8 commands(2); Systolic BP: > 89 mm Hg(4); Respiratory Rate: 10 to 29 per min(4); Sammy Score: 15; Trauma Score: 12 09:51 Eye Response: spontaneous(1); Verbal Response: oriented(1); Motor Response: obeys ar8 commands(2); Systolic BP: > 89 mm Hg(4); Respiratory Rate: 10 to 29 per min(4); Sammy Score: 15; Trauma Score: 12 10:15 Eye Response: spontaneous(1); Verbal Response: oriented(1); Motor Response: obeys ar8 commands(2); Systolic BP: > 89 mm Hg(4); Respiratory Rate: 10 to 29 per min(4); [place] Score: 15; Trauma Score: 12 11:15 Eye Response: spontaneous(1); Verbal Response: oriented(1); Motor Response: obeys ar8 commands(2); Systolic BP: > 89 mm Hg(4); Respiratory Rate: 10 to 29 per min(4); Sammy Score: 15; Trauma Score: 12 12:15 Eye Response: spontaneous(1); Verbal Response: oriented(1); Motor Response: obeys ar8 commands(2); Systolic BP: > 89 mm Hg(4); Respiratory Rate: 10 to 29 per min(4); Sammy Score: 15; Trauma Score: 12 13:15 Eye Response: spontaneous(1); Verbal Response: oriented(1); Motor Response: obeys ar8 commands(2); Systolic BP: > 89 mm Hg(4); Respiratory Rate: 10 to 29 per min(4); Sammy Score: 15; Trauma Score: 12 MDM: 09:19 Medical Screening Exam initiated sb4 09:47 Differential diagnosis: Contusion of head, Hematoma on head, Concussion without LOC. sb4 cerebral contusion. Data reviewed: vital signs, nurses notes, EMS record, prison records, radiologic studies, and as a result, I will discharge patient. Counseling: I had a detailed discussion with the patient and/or guardian regarding the historical points, exam findings, and any diagnostic results supporting the discharge/admit diagnosis, the presence of at least one elevated blood pressure reading (>120/80) during this emergency department visit, radiology results, the need for outpatient follow up, for definitive care, to return to the emergency department if symptoms worsen or persist or if there are any questions or concerns that arise at home. 07/10 09:19 Order name: Head C Spine MPR Wo Con CT; Complete Time: 09:43 sb4 07/10 10:05 Order name: Chest Single View XRAY; Complete Time: 11:53 sb4 Administered Medications: No medications were administered Disposition Summary: 07/10/25 09:44 Discharge Ordered Notes: Location: Home sb4 Problem: new sb4 Symptoms: have improved sb4 Condition: Stable sb4 Diagnosis - Fall on same level, unspecified sb4 Followup: sb4 - With: Emergency Department - When: As needed - Reason: Trouble breathing, Worsening of condition Discharge Instructions: - Discharge Summary Sheet sb4 - Fall Prevention in the Home, Adult, [id number] sb4 - Head Injury, Adult, [id number] sb4 Forms: - Patient Portal Instructions sb4 - Leadership Thank You Letter sb4 Signatures: Dispatcher [employer] Bertha Naidu PA-C PA-C sb4 Del Galloway, RN RN ar8
--- NOTE | 2025-07-10 11:53 | RAD REPORT ---
EXAM: Chest Single View HISTORY: 84 years Male CHEST PAIN COMPARISON: 05/18/2024 FINDINGS: LUNGS/PLEURA: The lungs are clear. No pleural effusions or pneumothorax. No pulmonary edema. CARDIAC/MEDIASTINUM: The cardiac silhouette is within normal limits. UPPER ABDOMEN: No significant abnormality. BONES: Sternotomy. No acute abnormality. LINES/TUBES/OTHER: Surgical clips in right axilla. IMPRESSION: No evidence of acute cardiopulmonary disease.
[2025-07-10 13:44] VITALS: TEMP 98.7
[2025-07-10 13:53] VITALS: BP 166/86; O2SAT 100
== END 2025-07-10 13:32 | disposition home or self-care (01) ==
LOC: ER 09:18
DX: R51.9 Headache, unspecified (principal); W18.30XA Fall on same level, unspecified, initial encounter
CPT/HCPCS: 70450; 71045; 72125; 99284